=== PATIENT | female | born 1950 | race Caucasian/White ===

== ENCOUNTER 2023-05-19 13:01 | Outpatient (CLI) | payer MEDICARE, SELFPAY ==
--- NOTE | 2023-05-19 13:00 | CRLHL7_ITS ---
For Patients: As a result of the Century Cures Act, medical imaging exams and procedure reports are released immediately into your electronic medical record. You may view this report before your referring provider. If you have questions, please contact your health care provider. DXA BONE MINERAL DENSITY STUDY Reason for exam: Age-related osteoporosis. Screening. Current height (in): 66. Weight (lb): 147. Menopause age: 40. Ethnicity: White. 1. Have you had a previous hip or vertebral fracture? No. 2. Have you had any fractures during your adult life which did not result from significant trauma (e.g., auto accident)? No. 3. Did either of your parents have a hip fracture? No. 4. Do you smoke? Yes. 5. Have you ever taken Glucocorticoids? No. 6. Do you have rheumatoid arthritis? No. 7. Do you have secondary osteoporosis? No. 8. Do you drink 3 or more alcoholic drinks per day? No. 9. Are you being treated for osteoporosis? No. 10. Have you ever taken any of the following medications: Actonel, Evista, Fosamax, Miacalcin, Reclast, Boniva, Forteo, HRT (i.e., estrogen/hormone therapy), Protelos, Prolia, Vitamin D, Calcium, other ??? please specify. ANSWER: Yes, vitamin D and calcium. 11. Do you have any of the following medical conditions: Anorexia or bulimia, asthma or emphysema, end stage renal disease, hyperparathyroidism, any seizure disorders, cancer, inflammatory bowel diseases, hysterectomy, other ??? please specify. ANSWER: No. 12. What was your maximum height (inches)? 66. 13. Do you perform weight bearing exercise regularly? No. 14. Do you regularly consume dairy products? No. 15. Do you drink caffeinated beverages? Yes. If female: 16. At what age did your period start? 13. 17. Are you premenopausal? No. 18. How many full-term pregnancies have you had? 38. 19. Have you ever missed your period for more than 6 months in a row (not including or menopause)? No. TECHNIQUE: Bone mineral density study was performed using the [employer] Wi. FINDINGS: The results of the study expressed as bone mineral density (BMD) are as follows: Lumbar spine L1 to L4: BMD: 1.217 g/cm2. T-score: 1.5. Z-score: 3.7 Neck Left: BMD: 0.890 g/cm2. T-score: 0.4. Z-score: 2.2 Right: BMD: 0.918 g/cm2. T-score: 0.6. Z-score: 2.5 Total Left: BMD: 1.002 g/cm2. T-score: 0.5. Z-score: 2.0 Right: BMD: 1.044 g/cm2. T-score: 0.8. Z-score: 2.4 IMPRESSION: Normal bone density. Cale Torres M.D. Diagnostic Radiologist [email or web address] [place]/jackie jj/Dictated by: Cale Torres MD @ 05/20/2023 7:00:00 AM (Electronically Signed)
--- NOTE | 2023-05-19 13:40 | CRLHL7_ITS ---
For Patients: As a result of the Century Cures Act, medical imaging exams and procedure reports are released immediately into your electronic medical record. You may view this report before your referring provider. If you have questions, please contact your health care provider. BILATERAL SCREENING MAMMOGRAM WITH COMPUTER-AIDED DETECTION AND TOMOSYNTHESIS TECHNIQUE: CC and MLO views were obtained. These mammographic images have been obtained using full-field digital technique. These mammographic images were interpreted with the benefit of computer-aided detection. Breast Tomosynthesis was used in this interpretation. COMPARISON FILM: 12/25/18, 11/18/17, 03/29/16. FINDINGS: There are scattered areas of fibroglandular density IMPRESSION: There is no radiographic evidence for malignancy. ASSESSMENT: BI-RADS Category 2: Benign RECOMMENDATION: Routine screening mammogram in 1 year. A lay language report of this examination will be provided to the patient. Alverto Lopez M.D. Diagnostic/Nuclear Medicine Radiologist [email or web address] [place]/Dictated by: Alverto Lopez MD @ 05/25/2023 10:03:00 AM (Electronically Signed)
== END 2023-05-19 13:02 | disposition home or self-care (01) ==
LOC: RAD 13:02
PROVIDERS: PCP Family Medicine; Visit Provider Family Medicine
DX: Z12.31 Encounter for screening mammogram for malignant neoplasm of breast (principal); Z13.820 Encounter for screening for osteoporosis; M81.0 Age-related osteoporosis without current pathological fracture
CPT/HCPCS: 77063; 77067; 77080

== ENCOUNTER 2024-01-05 15:32 | Outpatient (CLI) | payer MEDICARE, SELFPAY | END 2024-01-05 15:33 | disposition home or self-care (01) | LOC: NFLDREF 01-06 07:36 | PROVIDERS: PCP Family Medicine; Referring Provider Family Medicine; Visit Provider Physician Assistant | DX: R31.9 Hematuria, unspecified (principal) | CPT/HCPCS: 87086 ==

== ENCOUNTER 2024-01-09 15:34 | Outpatient (CLI) | payer MEDICARE, SELFPAY | END 2024-01-09 15:35 | disposition home or self-care (01) | LOC: LKVREF 15:36 | PROVIDERS: PCP Family Medicine; Visit Provider Family Medicine | DX: R53.83 Other fatigue (principal); Z13.29 Encounter for screening for other suspected endocrine disorder | CPT/HCPCS: 84443 ==

== ENCOUNTER 2024-01-24 12:52 | Outpatient (CLI) | payer MEDICARE, SELFPAY ==
--- NOTE | 2024-01-24 13:00 | CT_ITS ---
Patient: FRANCIA MOTT Facility:?[facility] Patient ID:?[id number] Site Patient ID:?[id number]. Site :?[id number] Study:?CT-Abdomen/Pelvis STONE STUDY-01/24/2024 1:42:08 PM Ordering Physician:?DR. AVILES Final Report: INDICATION: Hematuria, history of stones TECHNIQUE: CT abdomen and pelvis without contrast, stone protocol. COMPARISON: None FINDINGS: Kidney/ureters: 7 x 4 mm nonobstructing stone in the left renal pelvis. Additional nonobstructing 2 mm intrarenal stone on the left and punctate nonobstructing intrarenal stone on the right. No ureteral stone or hydronephrosis. Phleboliths along the right ovarian vein. Liver/gallbladder/bile ducts: The liver is normal in size, shape and attenuation. Cholecystectomy. Spleen/pancreas/adrenal glands: The spleen, adrenal glands and pancreas are within normal limits. GI tract: Sigmoid diverticulosis. No diverticulitis. Normal appendix. Abdominal wall/omentum/peritoneum: No free air or significant free fluid. No mass or inflammation. Lymph nodes: No lymphadenopathy. Pelvis: Hysterectomy. Lower chest: Unremarkable. IMPRESSION: Bilateral nephrolithiasis including 7 x 4 mm left renal pelvis stone. Please note that all CT scans at this facility use dose modulation, iterative reconstruction, and/or weight-based dosing when appropriate to reduce radiation dose to as low as reasonably achievable. Dictated by Yakov Weston MD @ 01/25/2024 8:36:08 AM Signed by:?Yakov Weston MD @01/25/2024 8:36:08 AM (Electronic Signature)
== END 2024-01-24 12:53 | disposition home or self-care (01) ==
PROVIDERS: PCP Family Medicine; Visit Provider Family Medicine
DX: N20.0 Calculus of kidney (principal); R31.9 Hematuria, unspecified
CPT/HCPCS: 74176

== ENCOUNTER 2024-02-03 14:59 | Outpatient (CLI) | payer MEDICARE, SELFPAY ==
--- OUTSIDE RECORDS SUMMARY | 2024-02-06 07:10 | XMS_ITS | Clinical Summary ---
Author Name Unknown Organization [facility] Address [address] [place] [address] Care Team Providers Care Fixed Income Manager Name Role Phone [facility]- Primary Care Provider Allergies Active Allergy Reactions Criticality Noted Date Comments Codeine Itching 03/06/2017 Prednisone Shortness Of Breath High 03/06/2017 Pt. States that Thinks she was allergic to contrast dye, not the prednisone Sulfa Antibiotics Unknown 03/06/2017 Adhesive Tape Other (See Comments) 12/01/2018 Red and raw under tape, takes days to heal. Medications Medication Sig Dispensed Refills Start Date End Date Status HYDROcodone-acetami nophen (NORCO) 10-325 MG per tablet Take 1 tablet by mouth 5 times daily Active Fexofenadine HCl (LAINE PO) Take 1 tablet by mouth daily Active albuterol (PROAIR HFA/PROVENTIL HFA/VENTOLIN HFA) 108 (90 BASE) MCG/ACT Inhaler Inhale 2 puffs into the lungs every 6 hours Active gabapentin (NEURONTIN) 600 MG tablet Take 600 mg by mouth every evening Active Multiple Vitamins-Minerals (MULTIVITAMIN ADULT PO) Take 1 tablet by mouth daily Active calcium carbonate (CALCIUM CARBONATE) 600 MG tablet Take 1 tablet by mouth daily Active cyclobenzaprine (FLEXERIL) 10 MG tablet Take 10 mg by mouth 3 times daily as needed for muscle spasms Active cholecalciferol (VITAMIN D3) 5000 units TABS tablet Take 10,000 Units by mouth daily (Patient takes [id number],000 international unit(s)) Active atorvastatin (LIPITOR) 10 MG tablet Take 10 mg by mouth daily Active omega-3 acid ethyl esters (LOVAZA) 1 g capsule Take 1 g by mouth 2 times daily Active oxyCODONE-acetamino phen (PERCOCET) 5-325 MG tablet Take 1 tablet by mouth daily as needed for severe pain Active diazepam (VALIUM) 5 MG tablet Take 5 mg by mouth every 6 hours as needed for anxiety Active zolpidem (AMBIEN) 5 MG tablet Take 5-10 mg by mouth nightly as needed for sleep Active melatonin 5 MG CAPS Take 5 mg by mouth nightly as needed Active Active Problems Problem Noted Date Diagnosed Date Cervicalgia Overview: Created by Conversion Lumbar Radiculopathy At L5 Overview: Created by Conversion Social History Tobacco Use Types Packs/Day Years Used Date Smoking Tobacco: Former Cigarettes Q uit: 10/03/1996 Smokeless Tobacco: Never Alcohol Use Standard Drinks/Week Comments Yes 0 (1 standard drink = 0.6 oz pur e alcohol) occassional Sex and Gender Information Value Date Recorded Sex Assigned at Not on file Gender Identity Not on file Sexual Orientation Not on file Last Filed Vital Signs Vital Sign Reading Time Taken Comments Blood Pressure 141/85 12/04/2018 10:17 AM INSURANCE SPECIALIST Pulse 80 12/04/2018 9:30 AM INSURANCE SPECIALIST Temperature 36.3 ??C (97.3 ??F) 12/04/2018 9:30 AM CS T Respiratory Rate 12 12/04/2018 10:17 AM INSURANCE SPECIALIST Oxygen Saturation 92% 12/04/2018 10:17 AM INSURANCE SPECIALIST Inhaled Oxygen Concentration - - Weight 84.5 kg (186 lb 4.8 oz) 12/04/2018 6:31 A M INSURANCE SPECIALIST Height 166.4 cm (5' 5.5) 12/04/2018 6:31 AM INSURANCE SPECIALIST Body Mass Index 30.53 12/04/2018 6:31 AM INSURANCE SPECIALIST Plan of Treatment Not on file Care Teams Fixed Income Manager Relationship Specialty Start Date End Date [facility]- [address] [place] [address] PCP - General 11/16/18
--- OUTSIDE RECORDS SUMMARY | 2024-02-06 07:10 | XMS_ITS | Referral Summary ---
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- [address] [place] [address] PCP - General 11/16/18
--- OUTSIDE RECORDS SUMMARY | 2024-02-06 07:11 | XMS_ITS | Continuity of Care Document ---
Author Name Unknown Organization [facility] Address [address] [address] [place] [address] Phone Care Team Providers Care Rodeo Performer Name Role Phone Link Tavo ORTEGA Unavailable Unavailable Allergies, Adverse Reactions, Alerts Substance Reaction Status Criticality adhesive Rash Active No Information Sulfa (Sulfonamide Antibiotics) Active No Information codeine Active No Information Medications Medication Instructions Dosage Effective Dates (start - stop) Status Comments [place] 10 mg-325 mg tablet take 1 tablet by oral route every 6 hours as needed for pain 1 tablet - Active Fish Oil 1,000 mg capsule take by Oral route 2 times every day - Active multivitamin tablet take by Oral route every day Not Available - Active Vitamin D3 5,000 unit tablet take 1 by Oral route every day 1 - Active Lipitor 10 mg tablet take 1 tablet by oral route every day 10 MG - Active aspirin 81 mg tablet,delayed release take 1 tablet by oral route every day 81 MG - Active Annemarie Allergy 180 mg tablet take 1 tablet by oral route every day 180 MG - Active Percocet 5 mg-325 mg tablet take 1 tablet by oral route every 6 hours as needed 1.00 tablet - Active Calcium 600 600 mg (1,500 mg) tablet take by Oral route every day Not Available - Active Miralax 17 gram oral powder packet Use as directed - Active Procedures Procedure Date Offic/outpt E&m New Mod Sever 7 Offic/outpt E&m Estab Low-mod 4 Routine Serum Collection Thyroid Stim Hormone Colonoscopy Flex; Dx (sep Pro) 14 Ugi Endo; W/bx 1/mx Level Iv-surg Path Gross/micro 14 Advance Directives Directive Yes / No Effective Date File Name No Information Encounters Encounter Description Practice Location Reason(s) For Visit Diagnoses Date Provider Providers Copied on Encounter [facility], [address] [address], [place], [id number], [place] tel:[phone] [facility] No Information 7 Tl Vo. [address] [facility] [place], [place], [place], [id number] , [place]. tel: [phone] Offic/outpt E&m New Mod Sever [facility], [address] [address], [place], [id number], [place] tel:[phone] [facility] GI Symptoms or Concerns (chief complaint) Constipation, chronicAbdominal pain in female 7 Jose David Patel. [address] [facility] [place], [place], [place], [id number] , [place]. tel:[phone] Eduardo Sanchez MD. tel:[phone] ring Provider: Referral Self, USE FOR SELF REFERRALS. Offic/outpt E&m Estab Low-mod [facility], [address] [address], [place], [place], [id number], [place] tel:[phone] [facility] GI Symptoms or Concerns (chief complaint) DysphagiaConstip ation UnspecifiedDieta ry Surveil/counselE lev Bl Pres W/o Hypertn 4 Jose David Patel. [address] [facility] [place], [place], [id number] , [place]. [phone] Eduardo Sanchez MD. [phone] [facility], [address] [address], [place], [place], [id number], [place] tel:[phone] [facility] Colon Cancer Screening 4 Jose David Patel. [address] [facility] [place], [place], [place], [id number] , [place]. [phone] Eduardo Sanchez MD. [phone] [facility], [address] [address], [place], [place], [id number], [place] tel:[phone] [facility] DysphagiaColon cancer screeningReflux EsophagitisGastr itisColon Cancer Screening 4 Jose David Patel. [address] [facility] [place], [place], [place], [id number] , [place]. [phone] Referring Provider: Eduardo Sanchez MD C, [address] [facility] [place], [address]. tel:[phone] [facility], [address] [address], [place], [place], [address], [place] tel:[phone] [facility] No Information Jorge Rod. [address] [facility] [place], [place], [place], [id number] , [place]. [phone] Referring Provider: Cale Patrick MD [place], [address] [place], [address]. tel:[phone] Family History Family Member Type Diagnosis Age At Onset Brother Problem (finding) Alive and well Father Problem (finding) malignant neoplasm of u rinary bladder Father Problem (finding) prostate cancer Son Problem (finding) Alive and well Mother Problem (finding) Thyroid disorder Sister Problem (finding) malignant neop lasm of breast in first degree relative Daughter Problem (finding) Alive and well Payers Payer name Insurance type Covered libertarian ID Authoriza tion(s) [employer] [id number] Social History Type Description Quantity Date Captured Comments Sex Female Smoking Status No Information Chief Complaint And Reason For Visit No Information Reason For Referral Reason For Referral No Information Plan Of Treatment Date Type Action Status Goal Lifestyle education regardin g diet completed Referral Ordered: CT Colography Appointment date/timeframe: -today ordered History Of Present Illness Encounter Date Complaint History Of Prese nt Illness GI Symptoms or Concerns Ana cristobal is a very pleasant 66-year-old female, who I am seeing for abdominal discomfort and chronic constipation. The patient was seen in the emergency room on March 06, [address] scan at that time, which showed perhaps some mild colonic thickening in the descending and sigmoid colon, although this was felt to be due to incomplete distention. Two liver lesions were noted, but were then concluded to be a benign cyst and a benign hemangioma, and no further followup was recommended. She states that if she overeats even a little, her belly will swell to the point where it is very painful. She will have a bowel movement approximately every other day. She has noted no specific foods that will cause worsening of her symptoms. I saw her in clinic approximately three years ago for similar symptoms. At that time, a colonoscopy was attempted, although only the descending colon was reached. No significant abnormalities were noted. A followup CT colography showed a very long to GI Symptoms or Concerns Ana cristobal is a very pleasant 63-year-old female who was referred for problems with dysphagia as well as constipation and abdominal pain. With regard to her dysphagia, she describes as a vague sense of fullness in her upper throat. It occurs very intermittently. She recently underwent endoscopy on 03/12/2014. During this procedure, biopsies were obtained and were completely normal. No other cause for the patient's dysphagia was noted at the time of the upper endoscopy. She denies odynophagia, no chest discomfort associated with the dysphagia. She states that this is very uncommon and is more associated with phlegm. She also is following up for problems with constipation. The colonoscopy was incomplete due to significant discomfort. A CT colonography was performed on March 12, which showed a very tortuous colon, but was otherwise unremarkable. She states that her constipation, which has been a lifelong problem, improved up until very recently. Prior to this, she may have a natalee Functional Status Date Functional Assessmen t No Information Instructions Date Instruction Additional Infor waleska Constipation Related to Const ipation, chronic Constipation Bowel Cleanse (Adul t) Related to Constipation, chronic High Fiber Diet Related to Const ipation Unspecified Lifestyle education regarding di et Related to Dietary surveillance and counseling Colon Cancer Prevention Related to Colon cancer screening CT Colography Related to Colon Cancer Screening Assessments Type Assessment Date No Information Patient Care Teams Name Effective Dates (start - stop) Status Members No Information
--- OUTSIDE RECORDS SUMMARY | 2024-02-06 07:11 | XMS_ITS | Continuity of Care Document ---
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 Name Role Phone Cale Keith Unavailable Unavailable Allergies, Adverse Reactions, Alerts Substance Reaction Status Criticality OXYCODONE HCL pruritis Active No Information Sulfa (Sulfonamide Antibiotics) Unknown Active No Information Medications Medication Instructions Dosage Effective Dates (start - stop) Status Comments hydrocodone 10 mg-acetaminophen 325 mg tablet take 1 tablet by oral route every 4 hours as needed for pain, MAX 5 tablets per day for Chronic pain - Active to fill 01/22, to start 01/23 gabapentin 300 mg capsule take 2 capsules by oral route two times daily for pain - Active cyclobenzaprine 10 mg tablet take 1 tablet by oral route every day for spasms - Active Narcan 4 mg/actuation nasal spray spray 0.1 milliliter by intranasal route in 1 nostril may repeat dose every 2-3 minutes as needed alternating nostrils with each dose 4 MG - Active Valium 5 mg tablet take 0.5 tablet by ORAL route every day prn 2.5 MG - Active Valium 5 mg tablet take 1 tablet by ORAL route 2 times every day prn 5 MG - Active ProAir RespiClick 90 mcg/actuation breath activated inhale 2 puff by inhalation route every 4 - 6 hours as needed as needed 180 MCG - Active lorazepam 0.5 mg tablet take 1 tablet by oral route 3 times every day as needed as needed 0.5 MG - Active Wellbutrin SR 150 mg tablet, 12 hr sustained-release take 1 tablet by oral route 2 times every day 150 MG - Active Aleve 220 mg tablet take 1 tablet by oral route every day as needed 220 MG - Active ibuprofen 200 mg tablet take 1 tablet by oral route 3 times every day as needed with food 200 MG - Active Lipitor 20 mg tablet take 1 tablet by oral route every day 20 MG - Active aspirin 81 mg tablet,delayed release take 1 tablet by oral route every day 81 MG - Active Lovaza 1 gram capsule take 2 capsule by oral route in AM and 2 by oral route in PM - Active Vitamins and Minerals tablet Take one tablet in AM - Active Multivitamin Annemarie Allergy 180 mg tablet take 1 tablet by oral route every day 180 MG - Active Vitamin D3 1,000 unit capsule Take 2 tablets in AM - Active hydrocodone 10 mg-acetaminophen 325 mg tablet take 1 tablet by oral route every 4 hours as needed for pain, MAX 5 tablets per day for Chronic pain - No Longer Active to fill 12/22, to start 12/24 Procedures Procedure Date OFFICE VISIT, EST TELEMEDICINE OFFICE VISIT, EST TELEMEDICINE OFFICE/OUTPATIENT VISIT, EST OFFICE VISIT, EST TELEMEDICINE OFFICE VISIT, EST TELEMEDICINE Drug Urine Toxology With Chromatography Drug test def 1-7 classes OFFICE/OUTPATIENT VISIT, EST OFFICE VISIT, EST TELEMEDICINE OFFICE VISIT, EST TELEMEDICINE OFFICE VISIT, EST TELEMEDICINE OFFICE/OUTPATIENT VISIT, EST OFFICE VISIT, EST TELEMEDICINE OFFICE VISIT, EST TELEMEDICINE Foll-up eval q3mo opiod tx OFFICE/OUTPATIENT VISIT, EST Foll-up eval q3mo opiod tx OFFICE VISIT, EST TELEMEDICINE Foll-up eval q3mo opiod tx OFFICE VISIT, EST TELEMEDICINE Foll-up eval q3mo opiod tx OFFICE/OUTPATIENT VISIT, EST Foll-up eval q3mo opiod tx OFFICE VISIT, EST TELEMEDICINE Foll-up eval q3mo opiod tx OFFICE VISIT, EST TELEMEDICINE Foll-up eval q3mo opiod tx OFFICE VISIT, EST TELEMEDICINE Foll-up eval q3mo opiod tx INJ TRIGGER POINT, 1/2 MUSCL OFFICE/OUTPATIENT VISIT, EST Drug Urine Toxology With Chromatography Drug test def 8-14 classes Foll-up eval q3mo opiod tx OFFICE VISIT, EST TELEMEDICINE Foll-up eval q3mo opiod tx OFFICE VISIT, EST TELEMEDICINE Foll-up eval q3mo opiod tx OFFICE VISIT, EST TELEMEDICINE Foll-up eval q3mo opiod tx OFFICE VISIT, EST TELEMEDICINE OFFICE/OUTPATIENT VISIT, EST Drug Urine Toxology With Chromatography Drug test def 8-14 classes Foll-up eval q3mo opiod tx OFFICE VISIT, EST TELEMEDICINE Foll-up eval q3mo opiod tx OFFICE VISIT, EST TELEMEDICINE Foll-up eval q3mo opiod tx OFFICE VISIT, EST TELEMEDICINE Foll-up eval q3mo opiod tx OFFICE VISIT, EST TELEMEDICINE Foll-up eval q3mo opiod tx OFFICE VISIT, EST TELEMEDICINE Foll-up eval q3mo opiod tx OFFICE VISIT, EST TELEMEDICINE ROUTINE BLOOD DRAW Drug test def 8-14 classes Drug Urine Toxology With Chromatography Foll-up eval q3mo opiod tx OFFICE/OUTPATIENT VISIT, EST Foll-up eval q3mo opiod tx OFFICE VISIT, EST TELEMEDICINE Foll-up eval q3mo opiod tx OFFICE VISIT, EST TELEMEDICINE Foll-up eval q3mo opiod tx OFFICE VISIT, EST TELEMEDICINE Foll-up eval q3mo opiod tx OFFICE/OUTPATIENT VISIT, EST Telehealth Foll-up eval q3mo opiod tx OFFICE VISIT, EST TELEMEDICINE Foll-up eval q3mo opiod tx OFFICE VISIT, EST TELEMEDICINE Foll-up eval q3mo opiod tx OFFICE VISIT, EST TELEMEDICINE Foll-up eval q3mo opiod tx OFFICE VISIT, EST TELEMEDICINE ROUTINE BLOOD DRAW Drug Urine Toxology With Chromatography Drug test def 8-14 classes OFFICE VISIT, EST TELEMEDICINE 21 Foll-up eval q3mo opiod tx Foll-up eval q3mo opiod tx OFFICE VISIT, EST TELEMEDICINE Foll-up eval q3mo opiod tx OFFICE VISIT, EST TELEMEDICINE 20 Foll-up eval q3mo opiod tx OFFICE VISIT, EST TELEMEDICINE Foll-up eval q3mo opiod tx OFFICE VISIT, EST TELEMEDICINE Foll-up eval q3mo opiod tx OFFICE/OUTPATIENT VISIT, EST Drug test def 15-21 classes Foll-up eval q3mo opiod tx OFFICE VISIT, EST TELEMEDICINE Foll-up eval q3mo opiod tx OFFICE VISIT, EST TELEMEDICINE 20 Foll-up eval q3mo opiod tx OFFICE VISIT, EST TELEMEDICINE Foll-up eval q3mo opiod tx OFFICE VISIT, EST TELEMEDICINE Foll-up eval q3mo opiod tx OFFICE VISIT, EST TELEMEDICINE Foll-up eval q3mo opiod tx OFFICE/OUTPATIENT VISIT, EST Foll-up eval q3mo opiod tx OFFICE VISIT, EST TELEMEDICINE Foll-up eval q3mo opiod tx OFFICE/OUTPATIENT VISIT, EST Foll-up eval q3mo opiod tx OFFICE/OUTPATIENT VISIT, EST Drug test def 22+ classes Drug Urine Toxology With Chromatography OFFICE/OUTPATIENT VISIT, EST OFFICE/OUTPATIENT VISIT, EST OFFICE/OUTPATIENT VISIT, EST OFFICE/OUTPATIENT VISIT, EST Drug test def 22+ classes Drug Urine Toxology With Chromatography OFFICE/OUTPATIENT VISIT, EST OFFICE/OUTPATIENT VISIT, EST OFFICE/OUTPATIENT VISIT, EST OFFICE/OUTPATIENT VISIT, EST Drug test def 22+ classes Drug Urine Toxology With Chromatography OFFICE/OUTPATIENT VISIT, EST OFFICE/OUTPATIENT VISIT, EST OFFICE/OUTPATIENT VISIT, EST OFFICE/OUTPATIENT VISIT, EST OFFICE/OUTPATIENT VISIT, EST OFFICE/OUTPATIENT VISIT, EST OFFICE/OUTPATIENT VISIT, EST OFFICE/OUTPATIENT VISIT, EST OFFICE/OUTPATIENT VISIT, EST OFFICE/OUTPATIENT VISIT, EST OFFICE/OUTPATIENT VISIT, EST OFFICE/OUTPATIENT VISIT, EST OFFICE/OUTPATIENT VISIT, EST OFFICE/OUTPATIENT VISIT, EST OFFICE/OUTPATIENT VISIT, EST OFFICE/OUTPATIENT VISIT, EST OFFICE/OUTPATIENT VISIT, EST OFFICE/OUTPATIENT VISIT, EST OFFICE/OUTPATIENT VISIT, EST OFFICE/OUTPATIENT VISIT, EST OFFICE/OUTPATIENT VISIT, EST OFFICE CONSULTATION Advance Directives Directive Yes / No Effective Date File Name No Information Encounters Encounter Description Practice Location Reason(s) For Visit Diagnoses Date Provider Providers Copied on Encounter OFFICE VISIT, [facility] TELEMEDICINE [facility], [address] [place], [place], [id number] , [place] tel: [phone] [facility] Widespread pain (chief complaint) AnxietyChronic pain syndromePain in left ankleOther intervertebral disc degeneration, lumbar regionMyalgia, other siteLong term (current) use of opiate analgesic 4 Rickey Madsen. [address], [place], [id number] , [place]. [phone] Referring Provider: Ravi Gonzalez, [address] [facility] [place], [address] . tel:[phone] OFFICE VISIT, [facility], [address] [place] [address], [id number] , [place] [phone] [facility] Widespread pain (chief complaint) AnxietyChronic pain syndromePain in left ankleOther intervertebral disc degeneration, lumbar regionMyalgia, other siteLong term (current) use of opiate analgesic 4 Rickey Madsen. [address], [place], [id number] , [place]. tel:[phone] OFFICE/OUTPAT IENT VISIT, [facility], [address] [place] [address], [id number] , [place] tel:[phone] [facility] Widespread pain (chief complaint) AnxietyChronic pain syndromeOther intervertebral disc degeneration, lumbar regionPain in left ankleMyalgia, other siteLong term (current) use of opiate analgesic 4 Rickey Madsen. [address] [facility], [place], [id number] , [place]. tel:[phone] Referring Provider: Ravi Gonzalez, [address] [place] [address] [place], [address] . tel:[phone] OFFICE VISIT, [facility] TELEMEDICINE [facility], [address] [place] [address] [place], [id number] , [place] tel: [phone] [facility] Widespread pain (chief complaint) AnxietyChronic pain syndromePain in left ankleOther intervertebral disc degeneration, lumbar regionMyalgia, other siteLong term (current) use of opiate analgesic 4 Rickey Madsen. [address] [place] [address] [place], [id number] , [place]. tel: [phone] Referring Provider: Ravi Gonzalez, [address] [place] [address] [place], [address] . tel:[phone] OFFICE VISIT, [facility], [address] [place] [address] [place], [place], [id number] , [place] tel: [phone] [facility] Widespread pain (chief complaint) AnxietyChronic pain syndromePain in left ankleOther intervertebral disc degeneration, lumbar regionMyalgia, other siteLong term (current) use of opiate analgesic 3 Rickey Madsen. [address] [place] [address] [place], [address] , [place]. tel: [phone] [facility], [address] [place] [address] Ghanshyam [place], [id number] , [place] tel: [phone] [facility] [place] No Information 3 Rickey Madsen. [address] [place] [address] Qu[place], [place], [id number] , [place]. tel: [phone] OFFICE/OUTPAT IENT VISIT, [facility], [address] [place] [address] [place], [id number] , [place] tel: [phone] [facility] Widespread pain (chief complaint) AnxietyChronic pain syndromePain in left ankleOther intervertebral disc degeneration, lumbar regionMyalgia, other siteLong term (current) use of opiate analgesicEncounte r for therapeutic drug level monitoring 3 Rickey Madsen. [address] [place] [place], [place], [id number] , [place]. [phone] Referring Provider: Ravi Gonzalez, [facility] [place], [address] . tel:[phone] OFFICE VISIT, EST TELEMEDICINE [facility], [address] [place] [address] [place], [address] , [place] [phone] [facility] Widespread pain (chief complaint) AnxietyChronic pain syndromePain in left ankleOther intervertebral disc degeneration, lumbar regionMyalgia, other siteLong term (current) use of opiate analgesic 3 Rickey Madsen. [address] [place], [id number] , [place]. [phone] OFFICE VISIT, EST TELEMEDICINE [facility], [address] [place] [address] Quang [place]Pat[place], [place], [address] , [place] [phone] [facility] Widespread pain (chief complaint) Chronic pain syndromeOther intervertebral disc degeneration, lumbar regionPain in left ankleMyalgia, other siteAnxietyLong term (current) use of opiate analgesic 3 Rickey Madsen. [address] [place], [place], [address] , [place]. [phone] Referring Provider: Raiv Gonzalez, [facility] [place], [address] . tel:[phone] OFFICE VISIT, EST TELEMEDICINE [facility], [address] [place], [place], [id number] , [place] tel:[phone] [facility] Widespread pain (chief complaint) AnxietyPain in left ankleOther intervertebral disc degeneration, lumbar regionMyalgia, other siteLong term (current) use of opiate analgesicChronic pain syndrome 3 Rickey Madsen. [address] [place], [id number] , [place]. tel:[phone] Referring Provider: Ravi Gonzalez, [address] [place], [place] [address]ms [place], [address] . tel:[phone] OFFICE/OUTPAT IENT VISIT, [facility], [address] [facility] Ghanshyam [place], [place], [id number] , [place] tel:[phone] [facility] Widespread pain (chief complaint) Other intervertebral disc degeneration, lumbar regionPain in left ankleAnxietyMyalg ia, other siteLong term (current) use of opiate analgesic Apr- 0 3 Trutnau Lisseth. [address] [facility] [place]ano [place], [id number] , [place]. tel:[phone] Referring Provider: Eduardo Sanchez , [facility] [address] [address] [place], [address]. tel:[phone] OFFICE VISIT, [facility], [address] [facility] Ghanshyam [place], [place], [id number] , [place] tel:[phone] [facility] Widespread pain (chief complaint) AnxietyPain in left ankleOther intervertebral disc degeneration, lumbar regionMyalgia, other siteLong term (current) use of opiate analgesic 3 Trutnau Lisseth. [address] [facility] [place], [id number] , [place]. [phone] Referring Provider: Ravi Gonzalez, [address] [place] [address] [place], [address] . tel:[phone] OFFICE VISIT, [facility], [address] [facility] Ghanshyam [place], [address] , [place] tel:[phone] [facility] Widespread pain (chief complaint) AnxietyPain in left ankleOther intervertebral disc degeneration, lumbar regionMyalgia, other siteLong term (current) use of opiate analgesic 3 Trutnau Lisseth. [address] [facility] [place], [id number] , [place]. [phone] Referring Provider: Ravi Gonzalez, [address] [place] [address] [place], [address] . tel:[phone] OFFICE/OUTPAT IENT VISIT, [facility], [address] [facility] Quang [place], [place], [address] , [place] tel:[phone] [facility] [place] Widespread pain (chief complaint) AnxietyPain in left ankleOther intervertebral disc degeneration, lumbar regionMyalgia, other siteLong term (current) use of opiate analgesicEncounte r for therapeutic drug level monitoring 3 Christian Montanez. [address] [facility] [place], [id number] , [place]. tel:[phone] Referring Provider: Eduardo Sanchez , [facility] [address] [address], [place], [address]. tel:[phone] OFFICE VISIT, [facility] TELEMEDICINE [facility], [address] [place] [address] [place], [place], [address] , [place] tel:[phone] [facility] [place] Widespread pain (chief complaint) AnxietyPain in left ankleOther intervertebral disc degeneration, lumbar regionMyalgia, other siteLong term (current) use of opiate analgesic 3 Christian Montanez. [address] [facility] U[place]ano [place], [id number] , [place]. tel:[phone] OFFICE VISIT, [facility] TELEMEDICINE [facility], [address] [place], [address] , [place] tel:[phone] [facility] Widespread pain (chief complaint) AnxietyPain in left ankleOther intervertebral disc degeneration, lumbar regionOther bursitis of hip, left hipMyalgia, other siteLong term (current) use of opiate analgesic 3 Christian Montanez. [address] [facility] [place], [address] , [place]. [phone] Referring Provider: Ravi Gonzalez, [address] [facility] [place], [address] . tel:[phone] OFFICE/OUTPAT IENT VISIT, [facility], [address] [place] [address] Quang [place], [place], [address] , [place] tel:[phone] [facility] [place] Widespread pain (chief complaint) AnxietyPain in left ankleOther intervertebral disc degeneration, lumbar regionOther bursitis of hip, left hipMyalgia, other siteLong term (current) use of opiate analgesic 3 Trutnau Lisseth. [address] [place], [id number] , [place]. tel: [phone] Referring Provider: Eduardo Sanchez [facility] [address] [address] [place], [address]. tel:[phone] OFFICE VISIT, EST TELEMEDICINE [facility], [address] [place], [id number] , [place] tel: [phone] [facility] [place] Widespread pain (chief complaint) AnxietyPain in left ankleOther intervertebral disc degeneration, lumbar regionOther bursitis of hip, left hipMyalgia, other siteLong term (current) use of opiate analgesic Sep- 2 Trutnau Lisseth. [address] [place], [address] , [place]. tel: [phone] OFFICE VISIT, EST TELEMEDICINE [facility], [address] [place], [id number] , [place] tel: [phone] [facility] [place] Widespread pain (chief complaint) AnxietyPain in left ankleOther intervertebral disc degeneration, lumbar regionOther bursitis of hip, left hipMyalgia, other siteLong term (current) use of opiate analgesic Sep-0 2 Trutnau Lisseth. [address] [place], [id number] , [place]. tel: [phone] OFFICE VISIT, EST TELEMEDICINE [facility], [address] [place], [id number] , [place] tel: [phone] [facility] [place] Widespread pain (chief complaint) AnxietyPain in left ankleOther intervertebral disc degeneration, lumbar regionOther bursitis of hip, left hipMyalgia, other siteLong term (current) use of opiate analgesic Nov-0 2 Trutnau Lisseth. [address] [place], [address] , [place]. tel:[phone] OFFICE/OUTPAT IENT VISIT, EST [facility], [address] [place], [address] , [place] tel: [phone] [facility] [place] Widespread pain (chief complaint) AnxietyPain in left ankleOther intervertebral disc degeneration, lumbar regionOther bursitis of hip, left hipLong term (current) use of opiate analgesicEncounte r for therapeutic drug level monitoringMyalgia , other site 2 Trutnau Lisseth. [address] [place] [place], [address] , [place]. [phone] Referring Provider: Eduardo Sanchez [facility] [address] [facility] [place], [address]. tel:[phone] [facility], [address] [facility] [place], [id number] , [place] tel: [phone] [facility] [place] No Information 2 Trutnau Lisseth. [address] [place], [address] , [place]. tel: [phone] OFFICE VISIT, EST TELEMEDICINE [facility], [address] [place], [id number] , [place] tel: [phone] [facility] [place] Widespread pain (chief complaint) Pain in left ankleOther intervertebral disc degeneration, lumbar regionOther bursitis of hip, left hipLong term (current) use of opiate analgesicAnxiety 2 Trutnau Lisseth. [address] [facility] [place], [address] , [place]. tel: [phone] OFFICE VISIT, EST TELEMEDICINE [facility], [address] [place], [id number] , [place] tel: [phone] [facility] [place] Widespread pain (chief complaint) Pain in right shoulderPain in left ankleOther intervertebral disc degeneration, lumbar regionOther bursitis of hip, left hipLong term (current) use of opiate analgesic 2 Trutnau Lisseth. [address] [facility] [place], [place], [address] , [place]. tel: [phone] OFFICE VISIT, [facility], [address] [place] [address] Ghanshyam [place], [place], [address] , [place] tel: [phone] [facility] [place] Widespread pain (chief complaint) Pain in right shoulderPain in left ankleOther intervertebral disc degeneration, lumbar regionOther bursitis of hip, left hipLong term (current) use of opiate analgesic Yaniv-0 2 Trutnau Lisseth. [address] [facility] [place], [address] , [place]. tel: [phone] Referring Provider: Ravi Gonzalez, [address] [place] [address] [place], [address] . tel:[phone] OFFICE VISIT, [facility], [address] [place] [address] Ghanshyam [place], [place], [address] , [place] tel: [phone] [facility] Widespread pain (chief complaint) Pain in right shoulderPain in left ankleOther intervertebral disc degeneration, lumbar regionOther bursitis of hip, left hipLong term (current) use of opiate analgesic Gregg-0 2 Trutnaavery Montanez. [address] [facility] [place], [id number] , [place]. tel: [phone] Referring Provider: Ravi Gonzalez, [address] [place] [address] [place], [address] . tel:[phone] OFFICE/OUTPAT IENT VISIT, [facility], [address] [place] [address] Ghanshyam [place], [place], [address] , [place] tel: [phone] [facility] [place] Widespread pain (chief complaint) Pain in left ankleOther intervertebral disc degeneration, lumbar regionPain in right shoulderOther bursitis of hip, left hipLong term (current) use of opiate analgesic May-0 2 Trutnau Lisseth. [address] [facility] [place], [address] , [place]. tel: [phone] Referring Provider: Slade Robb [facility] [address] [place], [address]. tel:[phone] [facility], [address] [facility] Quang [place], [place], [address] , [place] tel: [phone] [facility] [place] No Information Jan- 2 Almita Mosquera . [address] [facility] Quang [place], [place], [address] , [place]. tel: [phone] Referring Provider: Eduardo Sanchez , [facility] [address] [place], [address]. tel:[phone] OFFICE VISIT, EST TELEMEDICINE [facility], [address] [facility] Quang [place], [place], [address] , [place] tel: [phone] [facility] Widespread pain (chief complaint) Pain in right shoulderPain in left ankleOther intervertebral disc degeneration, lumbar regionOther bursitis of hip, left hipLong term (current) use of opiate analgesicAnxietyB ilateral primary osteoarthritis of knee Apr- 2 Almita Mosquera . [address] [facility] Quang [place], [place], [address] , [place]. tel: [phone] OFFICE VISIT, EST TELEMEDICINE [facility], [address] [facility] Quang [place], [place], [address] , [place] tel: [phone] [facility] Widespread pain (chief complaint) Pain in right shoulderLong term (current) use of opiate analgesicAnxietyO ther intervertebral disc degeneration, lumbar regionBilateral primary osteoarthritis of kneePain in left ankleOther bursitis of hip, left hip Mar-0 2 Christian Lisseth. [address] [facility] Darren Morris[place]ardienne [place], [id number] , [place]. tel: [phone] Referring Provider: Ravi Gonzalez, [address] [facility] [place], [address] . tel:[phone] OFFICE VISIT, EST TELEMEDICINE [facility], [address] [facility] Quang [place]Pat[place], [place], [address] , [place] tel: [id number] [facility] [place] Widespread pain (chief complaint) Pain in right shoulderLong term (current) use of opiate analgesicAnxietyO ther intervertebral disc degeneration, lumbar regionBilateral primary osteoarthritis of kneePain in left ankleOther bursitis of hip, left hip 2 Tr[place] Lisseth. [address] [place], [id number] , [place]. tel: [phone] Referring Provider: Ravi Gonzalez, [address] [place], [address] . tel:[phone] OFFICE VISIT, EST TELEMEDICINE [facility], [address] [place] [address] [place], [id number] , [place] tel: [phone] [facility] [place] Widespread pain (chief complaint) Pain in right shoulderLong term (current) use of opiate analgesicAnxietyO ther intervertebral disc degeneration, lumbar regionBilateral primary osteoarthritis of kneePain in left ankleOther bursitis of hip, left hip 1 Tr[place] Lisseth. [address] [place], [id number] , [place]. tel: [phone] OFFICE VISIT, EST TELEMEDICINE [facility], [address] [place], [id number] , [place] tel: [phone] [facility] [place] Widespread pain (chief complaint) Pain in right shoulderLong term (current) use of opiate analgesicAnxietyO ther intervertebral disc degeneration, lumbar regionBilateral primary osteoarthritis of kneePain in left ankleOther bursitis of hip, left hip 1 [place] Lisseth. [address] [place], [id number] , [place]. tel: [phone] Referring Provider: Ravi Gonzalez, [address] [place], [address] . tel:[phone] OFFICE VISIT, EST TELEMEDICINE [facility], [address] [place], [id number] , [place] tel:[phone] [facility] [place] Widespread pain (chief complaint) Pain in right shoulderLong term (current) use of opiate analgesicAnxietyO ther intervertebral disc degeneration, lumbar regionBilateral primary osteoarthritis of kneePain in left ankleOther bursitis of hip, left hip 1 Trdelisa Lisseth. [address] [place], [id number] , [place]. [phone] Referring Provider: Ravi Gonzalez, [facility] [place], [address] . 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 [address] [place], [id number] , [place]. [phone] Referring Provider: Ravi Gonzalez, [address] [place] [address] [place], [address] . tel:[phone] OFFICE/OUTPAT IENT VISIT, EST [facility], [address] [place] [address] [place], [id number] , [place] [phone] [facility] Widespread pain (chief complaint) Other intervertebral disc degeneration, lumbar regionBilateral primary osteoarthritis of kneePain in left ankleOther bursitis of hip, left hipPain in right shoulderLong term (current) use of opiate analgesicAnxietyE ncounter for therapeutic drug level monitoring 1 Christian Montanez. [address] [facility] [address] [place], [id number] , [place]. [phone] Referring Provider: Eduardo Sanchez , [facility] [address] [address] [place], [address]. tel:[phone] OFFICE VISIT, EST TELEMEDICINE [facility], [address] [place], [id number] , [place] [phone] [facility] Widespread pain (chief complaint) Other intervertebral disc degeneration, lumbar regionBilateral primary osteoarthritis of kneePain in left ankleOther bursitis of hip, left hipPain in right shoulderLong term (current) use of opiate analgesicAnxiety Jun- 1 [place] Lisseth. [address] [place], [id number] , [place]. tel:[phone] Referring Provider: Ravi Gonzalez, [address] [place] Clar[address] [place], [address] . tel:[phone] OFFICE VISIT, EST TELEMEDICINE [facility], [address] [place], [id number] , [place] tel:[phone] [facility] [place] Widespread pain (chief complaint) Other intervertebral disc degeneration, lumbar regionBilateral primary osteoarthritis of kneePain in left ankleOther bursitis of hip, left hipPain in right shoulderLong term (current) use of opiate analgesicAnxiety 1 [place] Lisseth. [address] [place], [id number] , [place]. tel:[phone] Referring Provider: Ravi Gonzalez, [facility] [address] [place], [address] . tel:[phone] OFFICE VISIT, EST TELEMEDICINE [facility], [address] [place] [address] [place], [id number] , [place] tel:[phone] [facility] [place] Widespread pain (chief complaint) Bilateral primary osteoarthritis of kneeOther intervertebral disc degeneration, lumbar regionPain in left ankleOther bursitis of hip, left hipPain in right shoulderLong term (current) use of opiate analgesicAnxiety 1 [place] Lisseth. [address] [place], [id number] , [place]. [phone] Referring Provider: Ravi Gonzalez, [address] [place] Darrenheriberto [place], [address] . tel:[phone] OFFICE/OUTPAT IENT VISIT, EST [facility], [address] [place], [id number] , [place] [phone] [facility] [place] Widespread pain (chief complaint) Bilateral primary osteoarthritis of kneeOther intervertebral disc degeneration, lumbar regionPain in left ankleOther bursitis of hip, left hipPain in right shoulderLong term (current) use of opiate analgesic Gregg-0 - 1 Trut[place] Lisseth. [address] [place], [id number] , [place]. tel:[phone] Referring Provider: Ravi Gonzalez, [address] Clar[place] noble[place], [address] . tel:[phone] OFFICE VISIT, EST TELEMEDICINE [facility], [address] Children[facility] [place], [id number] , [place] tel: [phone] [facility] [place] Widespread pain (chief complaint) Bilateral primary osteoarthritis of kneeOther intervertebral disc degeneration, lumbar regionPain in left ankleOther bursitis of hip, left hipLong term (current) use of opiate analgesicPain in right shoulder May-0 1 [place] Lisseth. [address] [place], [address] , [place]. tel: [phone] Referring Provider: Ravi Gonzalez, [facility] [place], [address] . tel:[phone] OFFICE VISIT, [facility] TELEMEDICINE [facility], [address] [place] [address] [place], [id number] , [place] tel: [phone] [facility] (chief complaint) Bilateral primary osteoarthritis of kneeOther intervertebral disc degeneration, lumbar regionPain in left ankleOther bursitis of hip, left hipLong term (current) use of opiate analgesic Apr-0 1 [place] Lisseth. [address] [place], [id number] , [place]. tel:[phone] Referring Provider: Ravi Gonzalez, [address] [place], [place] [address]ms [place] Darrenheriberto real[place], [address] . tel:[phone] OFFICE VISIT, [facility], [address] [place], [id number] , [place] tel:[phone] [facility] [place] Widespread pain (chief complaint) Bilateral primary osteoarthritis of kneeOther intervertebral disc degeneration, lumbar regionPain in left ankleLong term (current) use of opiate analgesicOther bursitis of hip, left hip 1 Christian Montanez. [address] [place], [id number] , [place]. tel: [phone] Referring Provider: Ravi Gonzalez, [address] [place], [address] . tel:[phone] OFFICE VISIT, [facility] TELEMEDICINE [facility], [address] [place], [id number] , [place] tel:[phone] [facility] Widespread pain (chief complaint) Bilateral primary osteoarthritis of kneeOther intervertebral disc degeneration, lumbar regionPain in left ankleLong term (current) use of opiate analgesic 1 Christian Montanez. [address] [place], [address] , [place]. tel:[phone] Referring Provider: Ravi Gonzalez, [address] [place], [address] . 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 [address] [place], [id number] , [place]. tel: [phone] OFFICE VISIT, [facility] TELEMEDICINE [facility], [address] [place], [id number] , [place] tel: [phone] [facility] [place] Widespread pain (chief complaint) Bilateral primary osteoarthritis of kneeOther intervertebral disc degeneration, lumbar regionPain in left ankleLong term (current) use of opiate analgesic 1 Christian Montanez. [address] [place], [id number] , [place]. tel:[phone] Referring Provider: Ravi Gonzalez, [address] [place], [address] . tel:[phone] OFFICE VISIT, [facility] TELEMEDICINE [facility], [address] [place], [id number] , [place] tel: [phone] [facility] [place] Widespread pain (chief complaint) Postlaminectomy syndrome, not elsewhere classifiedPlantar fasciitisBilatera l primary osteoarthritis of kneeLong term (current) use of opiate analgesicOther intervertebral disc degeneration, lumbar regionPain in left ankle Dec-0 8-202 0 [address] Lisseth. [address] [place], [id number] , [place]. tel: [phone] Referring Provider: Ravi Gonzalez, [facility] [place], [address] . tel:[phone] OFFICE VISIT, [facility], [address] [place], [id number] , [place] tel: [phone] [facility] [place] Widespread pain (chief complaint) Postlaminectomy syndrome, not elsewhere classifiedPlantar fasciitisBilatera l primary osteoarthritis of kneeLong term (current) use of opiate analgesicOther intervertebral disc degeneration, lumbar regionPain in left ankle Nov-0 6-202 0 [address] Lisseth. [address] [place], [id number] , [place]. tel: [phone] Referring Provider: Ravi Gonzalez, [place], [address] . tel:[phone] OFFICE VISIT, [facility], [address] [place], [id number] , [place] tel: [phone] [facility] [place] Widespread pain (chief complaint) Postlaminectomy syndrome, not elsewhere classifiedPlantar fasciitisBilatera l primary osteoarthritis of kneeLong term (current) use of opiate analgesicOther intervertebral disc degeneration, lumbar region Oct-0 8-202 0 [place] Lisseth. [address] [place], [id number] , [place]. tel: [phone] Referring Provider: Ravi Gonzalez, [place], [address] . tel:[phone] OFFICE VISIT, [facility] TELEMEDICINE [facility], [address] [place] [address] [place], [id number] , [place] tel: [phone] [facility] [place] Widespread pain (chief complaint) Postlaminectomy syndrome, not elsewhere classifiedPlantar fasciitisBilatera l primary osteoarthritis of kneeLong term (current) use of opiate analgesicOther intervertebral disc degeneration, lumbar region Sep-0 8-202 0 [address] Lisseth. [address] [place], [address] , [place]. tel:[phone] Referring Provider: Ravi Gonzalez, [address] [place] [address] [place], [address] . tel:[phone] OFFICE/OUTPAT IENT VISIT, [facility], [address] [place] [address] [place], [id number] , [place] tel: [phone] [facility] [place] Widespread pain (chief complaint) Postlaminectomy syndrome, not elsewhere classifiedPlantar fasciitisBilatera l primary osteoarthritis of kneeLong term (current) use of opiate analgesicOther intervertebral disc degeneration, lumbar region Aug-0 6 0 [place] Lisseth. [address] [place], [id number] , [place]. tel:[phone] Referring Provider: Eduardo Sanchez , [address], [address]. tel:[phone] [facility], [address] [place] [address] [place], [id number] , [place] tel:[phone] [facility] [place] No Information 0 Trut[place] Lisseth. [address] [facility] [address] [place], [id number] , [place]. tel:[phone] Referring Provider: Eduardo Sanchez , [address], [address]. tel:[phone] OFFICE VISIT, EST TELEMEDICINE [facility], [address] [place] [address] [place], [id number] , [place] tel: [phone] [facility] [place] Widespread pain (chief complaint) Other intervertebral disc degeneration, lumbar regionPostlaminec kay syndrome, not elsewhere classifiedPlantar fasciitisBilatera l primary osteoarthritis of kneeLong term (current) use of opiate analgesic Apr- 0- 0 [place] Lisseth. [address], [id number] , [place]. tel: [phone] Referring Provider: Ravi Gonzalez, [address] [place], [address] . tel:[phone] OFFICE VISIT, EST TELEMEDICINE [facility], [address] [place], [id number] , [place] tel: [phone] [facility] [place] Widespread pain (chief complaint) Other intervertebral disc degeneration, lumbar regionPostlaminec kay syndrome, not elsewhere classifiedPlantar fasciitisBilatera l primary osteoarthritis of kneeLong term (current) use of opiate analgesic Mar- 0 Trut[place] Lisseth. [address] Ramosadrienne kurtisL[place], [id number] , [place]. tel: [phone] Referring Provider: Ravi Gonzalez, [facility] [place], [address] . 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 [address] DarrenL[place]ITA [place], [id number] , [place]. tel:[phone] Referring Provider: Ravi Gonzalez, [facility] [place], [address] . tel:[phone] OFFICE VISIT, EST TELEMEDICINE [facility], [address] [place], [id number] , [place] tel: [phone] [facility] Widespread pain (chief complaint) Postlaminectomy syndrome, not elsewhere classifiedOther intervertebral disc degeneration, lumbar regionPlantar fasciitisBilatera l primary osteoarthritis of kneeLong term (current) use of opiate analgesic 0 [place] Lisseth. [address] [place], [id number] , [place]. tel: [phone] Referring Provider: Ravi Gonzalez, [address] [facility] [place], [address] . tel:[phone] OFFICE VISIT, [facility] TELEMEDICINE [facility], [address] [facility] [place], [id number] , [place] tel: [phone] [facility] Widespread pain (chief complaint) Postlaminectomy syndrome, not elsewhere classifiedOther intervertebral disc degeneration, lumbar regionPlantar fasciitisBilatera l primary osteoarthritis of kneeLong term (current) use of opiate analgesic 0 Tr[place] Lisseth. [address] [facility] [place] [place], [id number] , [place]. tel: [phone] OFFICE/OUTPAT IENT VISIT, [facility], [facility] Children[facility] [place], [id number] , [place] tel: [phone] [facility] [place] Widespread pain (chief complaint) Postlaminectomy syndrome, not elsewhere classifiedOther intervertebral disc degeneration, lumbar regionPlantar fasciitisBilatera l primary osteoarthritis of kneeLong term (current) use of opiate analgesic 0 [place] Lisseth. [address] [place], [address] , [place]. tel: [phone] Referring Provider: Slade Robb [facility] [address] [address] [place], [address]. tel:[phone] OFFICE VISIT, EST TELEMEDICINE [facility], [address] [place], [id number] , [place] tel: [phone] [facility] [place] Widespread pain (chief complaint) Postlaminectomy syndrome, not elsewhere classifiedOther intervertebral disc degeneration, lumbar regionPlantar fasciitisBilatera l primary osteoarthritis of kneeLong term (current) use of opiate analgesic 9 0 [address] Lisseth. [address] [place], [address] , [place]. [phone] Referring Provider: Ravi Gonzalez, [address] [place] [address] [place], [address] . tel:[phone] OFFICE/OUTPAT IENT VISIT, [facility], [address] [place] [address] Gh[place]hy[place], [place], [id number] , [place] tel:[phone] [facility] [place] Widespread pain (chief complaint) Postlaminectomy syndrome, not elsewhere classifiedOther intervertebral disc degeneration, lumbar regionPlantar fasciitisBilatera l primary osteoarthritis of kneeLong term (current) use of opiate analgesic 9 Odessau Lisseth. [address] [facility] [place], [id number] , [place]. tel:[phone] Referring Provider: Eduardo Sanchez , [facility] [address] [place] [address], [address]. tel:[phone] OFFICE/OUTPAT IENT VISIT, [facility], [address] [place] [address] [place], [place], [address] , [place] [phone] [facility] [place] Widespread pain (chief complaint) Postlaminectomy syndrome, not elsewhere classifiedOther intervertebral disc degeneration, lumbar regionPlantar fasciitisDrug induced constipationBilat eral primary osteoarthritis of kneeLong term (current) use of opiate analgesicPain in left shoulderPain in right shoulderPain in left ankle 9 Tr[place] Lisseth. [address] [facility] [place], [place], [id number] , [place]. [phone] Referring Provider: Eduardo Sanchez , [facility] [address] [place] [address], [address]. tel:[phone] OFFICE/OUTPAT IENT VISIT, [facility], [address] [facility] [place], [place], [address] , [place] tel: [phone] [facility] [place] Widespread pain (chief complaint) Bilateral primary osteoarthritis of kneeOther intervertebral disc degeneration, lumbar regionPostlaminec kay syndrome, not elsewhere classifiedLong term (current) use of opiate analgesicDrug induced constipationEncou nter for therapeutic drug level monitoringPlantar fasciitis 9 Trut[place]au Lisseth. [address] [facility] [place] [place], [place], [address] , [place]. tel: [phone] Referring Provider: Eduardo Sanchez , [address], [address]. tel:[phone] OFFICE/OUTPAT IENT VISIT, [facility], [address] [facility] Ghanshyam [place], [place], [address] , [place] tel: [phone] [facility] Widespread pain (chief complaint) Bilateral primary osteoarthritis of kneeOther intervertebral disc degeneration, lumbar regionPostlaminec kay syndrome, not elsewhere classifiedLong term (current) use of opiate analgesic Sep- 9 Trut[place] Lisseth. [address] [facility] Gh[place], [place], [address] , [place]. tel: [phone] Referring Provider: Eduardo Sanchez , [facility] [address] [place] [address], [address]. tel:[phone] OFFICE/OUTPAT IENT VISIT, [facility], [address] [facility] [place], [place], [address] , [place] tel: [phone] [facility] [place] Widespread pain (chief complaint) Bilateral primary osteoarthritis of kneeOther intervertebral disc degeneration, lumbar regionPostlaminec kay syndrome, not elsewhere classifiedLong term (current) use of opiate analgesic 9 Tr[place] Lisseth. [address] [facility] [place] , [place], [address] , [place]. tel: [phone] Referring Provider: Eduardo Sanchez [facility] [address] [place] [address], [address]. tel:[phone] OFFICE/OUTPAT IENT VISIT, [facility], [address] [facility] [place], [place], [address] , [place] tel:[phone] [facility] [place] Widespread pain (chief complaint) Bilateral primary osteoarthritis of kneeOther intervertebral disc degeneration, lumbar regionPostlaminec kay syndrome, not elsewhere classifiedLong term (current) use of opiate analgesic 9 Christian Montanez. [address] [facility] [place], [place], [address] , [place]. tel:[phone] Referring Provider: Eduardo Sanchez [address], [address]. tel:[phone] OFFICE/OUTPAT IENT VISIT, [facility], [address] [place], [place], [id number] , [place] tel:[phone] [facility] [place] Widespread pain (chief complaint) Bilateral primary osteoarthritis of kneeOther intervertebral disc degeneration, lumbar regionLong term (current) use of opiate analgesicEncounte r for therapeutic drug level monitoringPostlam inectomy syndrome, not elsewhere classified Christian Montanez. [address] [facility] [place], [place], [address] , [place]. tel:[phone] Referring Provider: Eduardo Sanchez [facility] [address] Medical CenterIn[place], [address]. tel:[phone] OFFICE/OUTPAT IENT VISIT, [facility], [address] [facility] [place], [place], [address] , [place] tel:[phone] [facility] Widespread pain (chief complaint) Other intervertebral disc degeneration, lumbar regionLow back painLong term (current) use of opiate analgesic Jan- 9 Latia Chu. [address] [facility] [place], [place], [address] , [place]. tel:[phone] Referring Provider: Eduardo Sanchez [facility] [address] [place], [address]. tel:[phone] OFFICE/OUTPAT IENT VISIT, [facility], [address] [place] [address], [id number] , [place] tel: [phone] [facility] [place] Widespread pain (chief complaint) Other intervertebral disc degeneration, lumbar regionLow back painLong term (current) use of opiate analgesic 9 Latia Kimberley. [address] [place] [address], [id number] , [place]. tel: [phone] Referring Provider: Eduardo Sanchez , [address], [address]. tel:[phone] OFFICE/OUTPAT IENT VISIT, [facility], [address] [place] [address], [id number] , [place] tel: [phone] [facility] Widespread pain (chief complaint) Other intervertebral disc degeneration, lumbar regionLow back pain Sep- 8 Latia Kimberley. [address] [place] [address], [id number] , [place]. tel: [phone] Referring Provider: Eduardo Sanchez [address], [address]. tel:[phone] OFFICE/OUTPAT IENT VISIT, [facility], [address] [place] [address], [id number] , [place] tel: [phone] [facility] Widespread pain (chief complaint) Other intervertebral disc degeneration, lumbar regionBilateral primary osteoarthritis of kneePain in right shoulderPain in left shoulderLong term (current) use of opiate analgesic 8 Christian Montanez. [address] [place] [address], [id number] , [place]. tel:[phone] Referring Provider: Eduardo Sanchez , [address], [address]. tel:[phone] OFFICE/OUTPAT IENT VISIT, [facility], [address] [facility] [place], [id number] , [place] tel: [phone] [facility] [place] Widespread pain (chief complaint) Bilateral primary osteoarthritis of kneeOther intervertebral disc degeneration, lumbar regionPain in right shoulderPain in left shoulder [address]. [address] [place], [place], [id number] , [place]. tel: [phone] Referring Provider: Eduardo Sanchez , [facility] [id number] [place] [address], [address]. tel:[phone] OFFICE/OUTPAT IENT VISIT, [facility], [address] [facility] [place], [id number] , [place] tel: [phone] [facility] [place] Widespread pain (chief complaint) Other intervertebral disc degeneration, lumbar regionPain in left kneePain in right kneeBilateral primary osteoarthritis of knee [address] Liss[address]. [address] [facility] [place], [place], [id number] , [place]. tel: [phone] Referring Provider: Eduardo Sanchez , [facility] [id number] [place] [address], [address]. tel:[phone] OFFICE/OUTPAT IENT VISIT, [facility], [address] [facility] [place], [place], [id number] , [place] tel: [phone] [facility] [place] Widespread pain (chief complaint) Other intervertebral disc degeneration, lumbar regionPain in left kneePain in right kneeBilateral primary osteoarthritis of knee [address]. [address] [facility] [place], [place], [id number] , [place]. tel: [phone] Referring Provider: Eduardo Sanchez , [facility] [id number] [place] [address], [address]. tel:[phone] OFFICE/OUTPAT IENT VISIT, [facility], [address] [facility] [place], [place], [id number] , [place] tel: [phone] [facility] [place] Widespread pain (chief complaint) Other intervertebral disc degeneration, lumbar regionPain in left kneePain in right kneeBilateral primary osteoarthritis of knee January-0 [address]. [address] [facility] [place], [id number] , [place]. tel: [phone] Referring Provider: Eduardo Sanchez , [address], [address]. tel:[phone] OFFICE/OUTPAT IENT VISIT, EST [facility], [address] [facility] [place], [id number] , [place] tel: [phone] [facility] ([facility] complaint) Other intervertebral disc degeneration, lumbar regionPain in left kneePain in right kneeBilateral primary osteoarthritis of knee Fe- 8 [address]. [address] [place], [place], [id number] , [place]. tel: [phone] Referring Provider: Eduardo Sanchez , [facility] [address] [place] [address], [address]. tel:[phone] OFFICE/OUTPAT IENT VISIT, EST [facility], [address] [facility] [place], [id number] , [place] tel: [phone] [facility] [place] Widespread pain (chief complaint) Other intervertebral disc degeneration, lumbar regionPain in left kneePain in right knee Dec 7 [address]. [address] [facility] [place], [id number] , [place]. tel: [phone] Referring Provider: Eduardo Sanchez [address], [address]. tel:[phone] OFFICE/OUTPAT IENT VISIT, EST [facility], [address] [facility] [place], [id number] , [place] tel: [phone] [facility] [place] Widespread pain (chief complaint) Other intervertebral disc degeneration, lumbar regionPain in left kneePain in right knee 7 [address]. [address], [id number] , [place]. tel:[phone] Referring Provider: Eduardo Sanchez , [facility] [id number] [place] [address], [address]. tel:[phone] OFFICE/OUTPAT IENT VISIT, [facility], [address] [place], [id number] , [place] tel: [phone] [facility] [place] Widespread pain (chief complaint) Other intervertebral disc degeneration, lumbar regionPain in right kneePain in left knee 7 [address]. [address] [place], [id number] , [place]. tel:[phone] Referring Provider: Eduardo Sanchez , [address], [address]. tel:[phone] OFFICE/OUTPAT IENT VISIT, [facility], [address] [place], [id number] , [place] tel:[phone] [facility] [place] Widespread pain (chief complaint) Other intervertebral disc degeneration, lumbar regionPain in right kneePain in left knee 7 [address]. [address] [place], [id number] , [place]. tel:[phone] Referring Provider: Eduardo Sanchez , [address], [address]. tel:[phone] OFFICE/OUTPAT IENT VISIT, [facility], [address] [place], [id number] , [place] tel:[phone] [facility] [place] Widespread pain (chief complaint) Other intervertebral disc degeneration, lumbar regionPain in right kneePain in left knee January-3 0201 7 [address]. [address] [place], [id number] , [place]. tel:[phone] Referring Provider: Eduardo Sanchez [facility] [id number] [place] [address], [address]. tel:[phone] OFFICE/OUTPAT IENT VISIT, [facility], [address] [place], [id number] , [place] tel:[phone] [facility] [place] Widespread pain (chief complaint) Other intervertebral disc degeneration, lumbar regionPain in left kneePain in right knee Apr-2 6-201 [address]. [address] [facility] [place], [id number] , [place]. tel:[phone] Referring Provider: Eduardo Sanchez , [facility] [address] [place] [address], [address]. tel:[phone] OFFICE/OUTPAT IENT VISIT, [facility], [address] [facility] [place], [id number] , [place] tel:[phone] [facility] [place] Widespread pain (chief complaint) Other intervertebral disc degeneration, lumbar regionPain in left kneePain in right knee Mar-3 0-201 7 [address] Yeung. [address] [facility] [place], [id number] , [place]. tel:[phone] Referring Provider: Eduardo Sanchez [facility] [address] [place] [address], [address]. tel:[phone] OFFICE/OUTPAT IENT VISIT, [facility], [address] [place], [id number] , [place] tel:[phone] [facility] [place] Widespread pain (chief complaint) Other intervertebral disc degeneration, lumbar regionPain in left kneePain in right knee Mar-0 1-201 7 [address]. [address] [facility] [place], [id number] , [place]. tel:[phone] Referring Provider: Eduardo Sanchez [address] [place], [address]. tel:[phone] OFFICE/OUTPAT IENT VISIT, [facility], [address] [facility] [place], [id number] , [place] tel: [phone] [facility] [place] Widespread pain (chief complaint) Other intervertebral disc degeneration, lumbar regionPain in left kneePain in right knee 7 [address]. [address] [facility] [place], [address] , [place]. tel: [phone] Referring Provider: Eduardo Sanchez , [address], [address]. tel:[phone] OFFICE/OUTPAT IENT VISIT, [facility], [address] [place] [address], [id number] , [place] tel: [phone] [facility] Widespread pain (chief complaint) Other intervertebral disc degeneration, lumbar regionPain in left kneePain in right knee Dec-2 6 [address]. [address] [facility] [place], [id number] , [place]. tel: [phone] Referring Provider: Eduardo Sanchez , [address], [address]. tel:[phone] OFFICE/OUTPAT IENT VISIT, [facility], [address] [place] [address], [id number] , [place] tel: [phone] [facility] Widespread pain (chief complaint) Other intervertebral disc degeneration, lumbar regionPain in left kneePain in right knee Dec-0 201 [address]. [address] [facility] [place], [id number] , [place]. tel:[phone] Referring Provider: Eduardo Sanchez , [facility] [address] [place] [address], [address]. tel:[phone] OFFICE/OUTPAT IENT VISIT, [facility], [address] [place], [place], [id number] , [place] tel:[phone] [facility] widespread pain (chief complaint) Other intervertebral disc degeneration, lumbar regionPain in left kneePain in right knee Nov-0 1-201 6 [address]. [address] [facility] [place], [place], [address] , [place]. tel:[phone] Referring Provider: Eduardo Sanchez , [address], [address]. tel:[phone] OFFICE/OUTPAT IENT VISIT, [facility], [address] [place] [address], [id number] , [place] tel:[phone] [facility] widespread pain (chief complaint) Other intervertebral disc degeneration, lumbar regionPain in right kneePain in left knee Oct-0 4-201 [address]. [address] [place], [place], [id number] , [place]. tel:[phone] Referring Provider: Eduardo Sanchez , [address], [address]. tel:[phone] OFFICE/OUTPAT IENT VISIT, [facility], [address] [place] [address], [id number] , [place] tel:[phone] [facility] widespread pain (chief complaint) Low back painOther intervertebral disc degeneration, lumbar region Sep-0 6-201 [address]. [address] [place], [place], [id number] , [place]. tel:[phone] Referring Provider: Eduardo Sanchez [address], [address]. tel:[phone] OFFICE/OUTPAT IENT VISIT, [facility], [address] [place] [address], [id number] , [place] tel:[phone] [facility] [place] widespread pain (chief complaint) Low back painLong term (current) use of opiate analgesic 6 [address]. [address] [facility] [place], [place], [id number] , [place]. tel:[phone] Referring Provider: Eduardo Sanchez [facility] [address] [place] [address], [address]. tel:[phone] OFFICE CONSULTATION [facility], [address] [place], [place], [id number] , [place] [phone] [facility] [place] widespread pain (chief complaint) Low back painLong term (current) use of opiate analgesic 6 [address]. [address] [facility] [place], [place], [id number] , [place]. tel:[phone] Referring Provider: Eduardo Sanchez , [address], [address]. tel:[phone] Family History Family Member Type Diagnosis Age At Onset No Information Payers Payer name Insurance type Covered democrat ID Authorjennifera vanihalie(s) Blue Cross Medicare Replacement 16 [id number] Social History Type Description Quantity Date Captured Comments Alcohol Use Details No Caffeine Use Details Unknown Tobacco Use Status Current non-smoker Smoking Status Never smoker Sex Female Chief Complaint And Reason For Visit From encounter dated '01/23/2024 10:32'. Widespread pain (chief complaint). Description: Severity level is 4. Duration: chronic. Location ofthe pain is lower back, bilateral knee and left ankle. The problem is stable. Symptom is aggravatedby overuse. Relieving factors include rest and Rx Meds. Pertinent negatives include diarrhea, fatigue, fever and incontinence (urinary). Reason For Referral Reason For Referral No Information Plan Of Treatment Date Type Action Status Goal AST (SGOT). Due on due Goal UDT. Due on due Goal Creatinine. 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 Due on due Goal Order Annual PT. Due on due Goal ADMINISTRATIVE COURT JUSTICE Scanned. Due on due Goal ALT (SGPT). Due on due Goal CT-Colonography. Due on due Goal Height. Due on d ue Goal Tobacco Use. Due on due Goal Unhealthy drug u se screening. Due on due Goal Update Social Hi story. Due on due Goal PHQ-9. Due on du e Goal Zoster vaccine ( 1st). Due on due Goal FIT-DNA. Due on due Goal Review Allergy L ist. Due on due Goal Lipid panel. Due on due Goal Weight. Due on d ue Goal Medication Recon ciliation. Due on due Goal Hepatitis C scre ening. Due on due Goal FIT. Due on due Goal OARS. Due on due Goal Weight. Due on d ue Goal AST (SGOT). Due on due Goal UDT. Due on due Goal Update Social Hi story. Due on due Goal Lipid panel. 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 Due on due Goal Order Annual PT. Due on due Goal PHQ-9. Due on du e Goal CT-Colonography. Due on due Goal Review Allergy L ist. Due on due Goal Creatinine. Due on due Goal FIT-DNA. Due on due Goal Medication Recon ciliation. Due on due Goal Hepatitis C scre ening. Due on due Goal Zoster vaccine ( ). Due on due Goal FIT. Due on due Goal ADMINISTRATIVE COURT JUSTICE Scanned. Due on due Goal Tobacco Use. Due on due Goal ALT (SGPT). Due on due Goal Height. Due on d ue Goal OARS. Due on due Goal Unhealthy drug u se screening. Due on due Goal OARS. Due on due Goal Creatinine. Due on due Goal Unhealthy drug u se screening. Due on due Goal Update Social Hi story. Due on due Goal Review Allergy L ist. Due on due Goal UDT. Due on due Goal Lipid panel. Due on due Goal Height. Due on d ue Goal PHQ-9. Due on du e Goal Weight. Due on d ue Goal Order Annual PT. Due on due Goal Hepatitis C scre ening. Due on due Goal FIT. Due on due Goal CT-Colonography. Due on due Goal Tobacco Use. Due on due Goal FIT-DNA. Due on due Goal ADMINISTRATIVE COURT JUSTICE Scanned. Due on due Goal Medication Recon ciliation. Due on due Goal Zoster vaccine ( 1st). Due on due Goal ALT (SGPT). 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 Due on due Goal AST (SGOT). Due on due Goal FIT. Due on due Goal CT-Colonography. Due on due Goal Zoster vaccine ( 1st). Due on due Goal PHQ-9. Due on du e Goal ALT (SGPT). Due on due Goal ADMINISTRATIVE COURT JUSTICE Scanned. Due on due Goal AST (SGOT). Due on due Goal FIT-DNA. Due on due Goal Hepatitis C scre ening. Due on due Goal Order Annual PT. Due on due Goal UDT. Due on due Goal Update Social Hi story. Due on due Goal Weight. Due on d ue Goal OARS. Due on due Goal Unhealthy drug u se screening. Due on due Goal Medication Recon ciliation. Due on due Goal Height. Due on d ue Goal Lipid panel. Due on due Goal Creatinine. 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 Due on due Goal Review Allergy L ist. Due on due Goal Tobacco Use. Due on due Goal Order Annual PT. Due on due Goal Creatinine. Due on 23 due Goal ALT (SGPT). Due on 22 due Goal FIT. Due on due Goal FIT-DNA. 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 Due on due Goal Lipid panel. Due on due Goal Zoster vaccine ( 1st). Due on due Goal ADMINISTRATIVE COURT JUSTICE Scanned. Due on due Goal Weight. Due on d ue Goal Unhealthy drug u se screening. Due on due Goal Height. Due on d ue Goal Tobacco Use. Due on due Goal Update Social Hi story. Due on due Goal Hepatitis C scre ening. Due on due Goal UDT. Due on due Goal OARS. Due on due Goal Medication Recon ciliation. Due on due Goal AST (SGOT). Due on due Goal Review Allergy L ist. Due on due Goal PHQ-9. Due on du e Goal CT-Colonography. Due on due Goal Tobacco Use. Due on due Goal Order Annual PT. 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 Due on due Goal UDT. Due on due Goal ALT (SGPT). Due on due Goal ADMINISTRATIVE COURT JUSTICE Scanned. Due on due Goal OARS. Due on due Goal AST (SGOT). Due on due Goal Creatinine. Due on due Goal Update Social Hi story. Due on due Goal FIT. Due on due Goal Zoster vaccine ( 1st). Due on due Goal Medication Recon ciliation. Due on due Goal FIT-DNA. Due on due Goal Lipid panel. Due on [address]-Colonography. Due on due Goal Review Allergy L ist. Due on due Goal Unhealthy drug u se screening. Due on due Goal PHQ-9. Due on du e Goal Weight. Due on d ue Goal Height. Due on d ue Goal Hepatitis C scre ening. Due on due Goal FIT-DNA. Due on due Goal Weight. Due on d ue Goal PHQ-9. Due on du e Goal OARS. Due on due Goal Zoster vaccine ( 1st). Due on due Goal CT-Colonography. 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 Due on due Goal Unhealthy drug u se screening. Due on due Goal Update Social Hi story. Due on due Goal FIT. Due on due Goal AST (SGOT). Due on due Goal ADMINISTRATIVE COURT JUSTICE Scanned. Due on due Goal UDT. Due on due Goal Height. Due on d ue Goal Hepatitis C scre ening. Due on due Goal Medication Recon ciliation. Due on due Goal Creatinine. Due on due Goal ALT (SGPT). Due on due Goal Review Allergy L ist. Due on due Goal Order Annual PT. Due on due Goal Tobacco Use. Due on due Goal Lipid panel. Due on due Goal AST (SGOT). Due on due Goal OARS. Due on due Goal Order Annual PT. Due on due Goal ADMINISTRATIVE COURT JUSTICE Scanned. 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 Due on due Goal Creatinine. Due on due Goal ALT (SGPT). Due on due Goal UDT. Due on due Goal Tobacco Use. Due on due Goal Update Social Hi story. Due on due Goal Review Allergy L ist. Due on due Goal Zoster vaccine ( 1st). Due on due Goal Medication Recon ciliation. Due on due Goal Unhealthy drug u se screening. Due on due Goal Lipid panel. Due on due Goal CT-Colonography. Due on due Goal PHQ-9. Due on du e Goal Hepatitis C scre ening. Due on due Goal FIT-DNA. Due on due Goal Weight. Due on d ue Goal Height. Due on d ue Goal FIT. Due on due Goal Creatinine. Due on due Goal FIT-DNA. Due on due Goal Weight. Due on d ue Goal Update Social Hi story. Due on due Goal Medication Recon ciliation. Due on due Goal Order Annual PT. Due on due Goal ADMINISTRATIVE COURT JUSTICE Scanned. Due on due Goal Unhealthy drug u se screening. Due on due Goal FIT. Due on due Goal ALT (SGPT). Due on due Goal OARS. Due on due Goal Review Allergy L ist. Due on due Goal Tobacco Use. Due on 023 due Goal AST (SGOT). Due on due Goal Height. Due on d ue Goal MARK[employer]IST Paperwork. Due on due Goal Hepatitis C scre ening. Due on due Goal Lipid panel. Due on 023 due Goal UDT. Due on due Goal Zoster vaccine ( 1st). Due on due Goal CT-Colonography. Due on due Goal PHQ-9. Due on du e Goal Creatinine. Due on due Goal CT-Colonography. Due on due Goal AST (SGOT). Due on due Goal UDT. Due on due Goal Order Annual PT. Due on due Goal ADMINIST[address]ATIVE COURT JUSTICE Scanned. Due on due Goal Lipid panel. Due on due Goal FIT-DNA. Due on due Goal Hepatitis C scre ening. Due on due Goal Review Allergy L ist. Due on due Goal Medication Recon ciliation. 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 Due on due Goal Update Social Hi story. Due on due Goal FIT. Due on due Goal Zoster vaccine ( 1st). Due on due Goal Height. Due on d ue Goal ALT (SGPT). Due on due Goal Tobacco Use. Due on due Goal OARS. Due on due Goal PHQ-9. Due on du e Goal Unhealthy drug u se screening. Due on due Goal Weight. Due on d ue Goal PHQ-9. Due on du e Goal CT-Colonography. Due on due Goal AST (SGOT). Due on due Goal Order Annual PT. Due on due Goal Tobacco Use. Due on due Goal Lipid panel. Due on due Goal ADMINIST[address]IVE [address] JUSTICE Scanned. Due on due Goal UDT. Due on due Goal Update Social Hi story. Due on due Goal ALT (SGPT). Due on due Goal Zoster vaccine ( 1st). 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 Due on due Goal Creatinine. Due on due Goal FIT-DNA. Due on due Goal Hepatitis C scre ening. Due on due Goal Medication Recon ciliation. Due on due Goal Weight. Due on d ue Goal FIT. Due on due Goal Unhealthy drug u se screening. Due on due Goal Review Allergy L ist. Due on due Goal OARS. Due on due Goal Height. Due on d ue Goal UDT. 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 Due on due Goal OARS. Due on due Goal Creatinine. Due on due Goal Tobacco Use. Due on due Goal AST (SGOT). Due on due Goal Review Allergy L ist. Due on due Goal Zoster vaccine ( 1st). Due on due Goal Lipid panel. Due on due Goal FIT-DNA. Due on due Goal ADMINIST[address]ATIVE COURT JUSTICE Scanned. Due on 023 due Goal Weight. Due on d ue Goal Order Annual PT. Due on due Goal Height. Due on d ue Goal PHQ-9. Due on du e Goal Update Social Hi story. Due on due Goal Medication Recon ciliation. Due on due Goal ALT (SGPT). Due on due Goal Hepatitis C scre ening. Due on due Goal FIT. Due on due Goal CT-Colonography. Due on due Goal Unhealthy drug u se screening. Due on due Goal UDT. Due on due Goal Creatinine. Due on due Goal OARS. Due on due Goal Review Allergy L ist. Due on due Goal FIT-DNA. Due on due Goal Height. Due on d ue Goal Medication Recon ciliation. Due on due Goal Zoster vaccine ( 1st). Due on due Goal PHQ-9. Due on du e Goal Unhealthy drug u se screening. Due on due Goal AST (SGOT). Due on due Goal FIT. Due on due Goal CT-Colonography. Due on due Goal ADMINIST[address]ATIVE COURT JUSTICE Scanned. Due on due Goal ALT (SGPT). Due on due Goal Tobacco Use. Due on due Goal Weight. Due on d ue Goal MARKETING [employer] SPECIALIST Paperwork. Due on due Goal Order Annual PT. Due on due Goal Lipid panel. Due on due Goal Update Social Hi story. Due on due Goal Hepatitis C scre ening. Due on due Goal FIT-DNA. Due on due Goal Weight. Due on d ue Goal OARS. Due on due Goal PHQ-9. Due on du e Goal UDT. Due on due Goal Creatinine. Due on due Goal ALT (SGPT). Due on due Goal ADMINIST[address]ATIVE COURT JUSTICE Scanned. Due on due Goal FIT. Due on due Goal Medication Recon ciliation. 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 Due on due Goal AST (SGOT). Due on due Goal Review Allergy L ist. Due on due Goal Unhealthy drug u se screening. Due on due Goal Hepatitis C scre ening. Due on due Goal Update Social Hi story. Due on due Goal Zoster vaccine ( ). Due on due Goal Height. Due on d ue Goal Lipid panel. Due on due Goal Order Annual PT. Due on due Goal Tobacco Use. Due on due Goal CT-Colonography. Due on due Goal Zoster vaccine ( ). Due on due Goal UDT. Due on due Goal Order Annual PT. Due on due Goal Lipid panel. Due on due Goal PHQ-9. Due on du e Goal Height. Due on d ue Goal AST (SGOT). Due on due Goal ALT (SGPT). Due on due Goal Tobacco Use. Due on due Goal Review Allergy L ist. Due on due Goal Update Social Hi story. Due on due Goal Medication Recon ciliation. Due on due Goal Unhealthy drug u se screening. Due on due Goal FIT-DNA. Due on due Goal ADMINIST[address]IVE COURT JUSTICE Scanned. Due on due Goal OARS. Due on due Goal Creatinine. Due on due Goal CT-Colonography. Due on due Goal Weight. Due on d ue Goal MARKETING [employer] SPECIALIST Paperwork. Due on due Goal FIT. Due on due Goal Hepatitis C scre ening. Due on due Goal Review Allergy L ist. Due on due Goal PHQ-9. Due on du e Goal Lipid panel. Due on due Goal FIT-DNA. Due on due Goal Hepatitis C scre ening. Due on due Goal Zoster vaccine ( 1st). Due on due Goal Height. Due on d ue Goal FIT. Due on due Goal Update Social Hi story. Due on due Goal OARS. 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 Due on due Goal Order Annual PT. Due on due Goal Creatinine. Due on due Goal AST (SGOT). Due on due Goal ADMINIST[address]ATIVE COURT JUSTICE Scanned. Due on due Goal ALT (SGPT). Due on due Goal UDT. Due on due Goal CT-Colonography. Due on due Goal Tobacco Use. Due on due Goal Medication Recon ciliation. Due on due Goal Weight. Due on d ue Goal Unhealthy drug u se screening. Due on due Goal Order Annual PT. Due on due Goal CT-Colonography. Due on due Goal ALT (SGPT). Due on due Goal Creatinine. Due on due Goal Weight. Due on d ue Goal MARKETING [employer]AMS SPECIALIST Paperwork. Due on due Goal ADMINIST[address]IVE COURT JUSTICE Scanned. Due on due Goal UDT. Due on due Goal OARS. Due on due Goal AST (SGOT). Due on due Goal PHQ-9. Due on du e Goal Hepatitis C scre ening. Due on due Goal FIT-DNA. Due on due Goal Height. Due on d ue Goal FIT. Due on due Goal Zoster vaccine ( 1st). Due on due Goal Review Allergy L ist. Due on due Goal Lipid panel. Due on due Goal Medication Recon ciliation. Due on due Goal Tobacco Use. Due on due Goal Unhealthy drug u se screening. Due on due Goal Update Social Hi story. Due on due Goal Height. Due on d ue Goal ALT (SGPT). Due on due Goal OARS. Due on due Goal UDT. Due on due Goal Update Social Hi story. Due on due Goal Unhealthy drug u se screening. Due on due Goal FIT-DNA. Due on due Goal Weight. Due on d ue Goal PHQ-9. Due on du e Goal CT-Colonography. Due on due Goal Lipid panel. Due on due Goal FIT. Due on due Goal Creatinine. Due on due Goal Tobacco Use. Due on due Goal Hepatitis C scre ening. Due on due Goal Order Annual PT. Due on due Goal Medication Recon ciliation. Due on due Goal Review Allergy L ist. Due on due Goal Zoster vaccine ( 1st). 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 Due on due Goal AST (SGOT). Due on due Goal ADMINISTRATIVE COURT JUSTICE Scanned. Due on due Goal OARS. Due on due Goal Review Allergy L ist. Due on due Goal UDT. Due on due Goal ALT (SGPT). Due on due Goal ADMINISTRATIVE COURT JUSTICE Scanned. Due on due Goal Order Annual PT. Due on due Goal AST (SGOT). 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 Due on due Goal Creatinine. Due on due Goal Lipid panel. Due on due Goal Tobacco Use. Due on due Goal Zoster vaccine ( 1st). Due on due Goal Medication Recon ciliation. Due on due Goal FIT-DNA. Due on due Goal Height. Due on d ue Goal Unhealthy drug u se screening. Due on due Goal Weight. Due on d ue Goal CT-Colonography. Due on due Goal Update Social Hi story. Due on due Goal Hepatitis C scre ening. Due on due Goal FIT. Due on due Goal PHQ-9. Due on du e Goal Height. Due on d ue Goal Review Allergy L ist. Due on due Goal FIT. Due on due Goal Lipid panel. Due on due Goal PHQ-9. Due on du e Goal CT-Colonography. 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 Due on due Goal Medication Recon ciliation. Due on due Goal FIT-DNA. Due on due Goal Hepatitis C scre ening. Due on due Goal Weight. Due on d ue Goal Unhealthy drug u se screening. Due on due Goal AST (SGOT). Due on due Goal Tobacco Use. Due on due Goal Zoster vaccine ( 1st). Due on due Goal ADMINISTRATIVE COURT JUSTICE Scanned. Due on due Goal Order Annual PT. Due on due Goal ALT (SGPT). Due on due Goal UDT. Due on due Goal Update Social Hi story. Due on due Goal OARS. Due on due Goal Creatinine. Due on due Goal Weight. Due on d ue Goal FIT. Due on due Goal Lipid panel. Due on due Goal Review Allergy L ist. Due on due Goal Height. Due on d ue Goal ALT (SGPT). Due on due Goal Zoster vaccine ( 1st). Due on due Goal PHQ-9. Due on du e Goal UDT. Due on due Goal Hepatitis C scre ening. Due on due Goal OARS. Due on due Goal Order Annual PT. Due on due Goal ADMINISTRATIVE COURT JUSTICE Scanned. Due on due Goal Medication Recon ciliation. Due on due Goal Update Social Hi story. Due on due Goal CT-Colonography. 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 Due on due Goal Tobacco Use. Due on due Goal Unhealthy drug u se screening. Due on due Goal Creatinine. Due on due Goal AST (SGOT). Due on due Goal FIT-DNA. Due on due Goal Unhealthy drug u se screening. Due on due Goal ALT (SGPT). Due on due Goal Weight. Due on d ue Goal MARKETING PRO[employer] SPECIALIST Paperwork. Due on due Goal Tobacco Use. Due on due Goal FIT-DNA. Due on due Goal Update Social Hi story. Due on due Goal UDT. Due on due Goal Hepatitis C scre ening. Due on due Goal Order Annual PT. Due on due Goal CT-Colonography. Due on due Goal Zoster vaccine ( 1st). Due on due Goal Medication Recon ciliation. Due on due Goal AST (SGOT). Due on due Goal Creatinine. Due on due Goal PHQ-9. Due on du e Goal Review Allergy L ist. Due on due Goal Height. Due on d ue Goal ADMINISTRATIVE COURT JUSTICE Scanned. Due on due Goal OARS. Due on due Goal FIT. Due on due Goal Lipid panel. 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 Due on due Goal OARS. Due on due Goal Update Social Hi story. Due on due Goal Weight. Due on d ue Goal Creatinine. Due on due Goal UDT. Due on due Goal FIT-DNA. Due on due Goal ADMINISTRATIVE COURT JUSTICE Scanned. Due on due Goal Height. Due on d ue Goal Order Annual PT. Due on due Goal AST (SGOT). Due on due Goal Medication Recon ciliation. Due on due Goal ALT (SGPT). Due on due Goal Tobacco Use. Due on due Goal PHQ-9. Due on du e Goal Lipid panel. Due on due Goal CT-Colonography. Due on due Goal Hepatitis C scre ening. Due on due Goal Unhealthy drug u se screening. Due on due Goal Review Allergy L ist. Due on due Goal FIT. Due on due Goal Zoster vaccine ( ). Due on due Goal OARS. Due on due Goal ALT (SGPT). Due on due Goal UDT. 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 Due on due Goal Creatinine. Due on due Goal AST (SGOT). Due on due Goal Order Annual PT. Due on due Goal ADMINISTRATIVE COURT JUSTICE Scanned. Due on due Goal Zoster vaccine ( ). Due on due Goal PHQ-9. Due on du e Goal Hepatitis C scre ening. Due on due Goal Height. Due on d ue Goal Unhealthy drug u se screening. Due on due Goal CT-Colonography. Due on due Goal Review Allergy L ist. Due on due Goal Medication Recon ciliation. Due on due Goal Update Social Hi story. Due on due Goal Tobacco Use. Due on due Goal FIT. Due on due Goal Lipid panel. Due on due Goal FIT-DNA. Due on due Goal Weight. Due on d ue Goal PHQ-9. Due on du e Goal FIT. Due on due Goal Hepatitis C scre ening. 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 Due on due Goal Medication Recon ciliation. Due on due Goal Unhealthy drug u se screening. Due on due Goal ALT (SGPT). Due on due Goal CT-Colonography. Due on due Goal Zoster vaccine ( 1st). Due on due Goal Review Allergy L ist. Due on due Goal Lipid panel. Due on due Goal AST (SGOT). Due on due Goal Update Social Hi story. Due on due Goal Height. Due on d ue Goal OARS. Due on due Goal ADMINISTRATIVE COURT JUSTICE Scanned. Due on due Goal FIT-DNA. Due on due Goal Order Annual PT. Due on due Goal Weight. Due on d ue Goal Tobacco Use. Due on due Goal UDT. Due on due Goal Creatinine. Due on due Goal Weight. Due on d ue Goal ADMINISTRATIVE COURT JUSTICE Scanned. 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 Due on due Goal FIT. Due on due Goal PHQ-9. Due on du e Goal Hepatitis C scre ening. Due on due Goal CT-Colonography. Due on due Goal AST (SGOT). Due on due Goal Review Allergy L ist. Due on due Goal UDT. Due on due Goal ALT (SGPT). Due on due Goal Medication Recon ciliation. Due on due Goal Lipid panel. Due on due Goal Tobacco Use. Due on due Goal FIT-DNA. Due on due Goal Creatinine. Due on due Goal Height. Due on d ue Goal Order Annual PT. Due on due Goal Unhealthy drug u se screening. Due on due Goal Update Social Hi story. Due on due Goal OARS. Due on due Goal Zoster vaccine ( ). 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 Due on due Goal Zoster vaccine ( ). Due on due Goal Medication Recon ciliation. Due on due Goal Tobacco Use. Due on due Goal AST (SGOT). Due on due Goal FIT. Due on due Goal ALT (SGPT). Due on due Goal ADMINISTRATIVE COURT JUSTICE Scanned. Due on due Goal Lipid panel. Due on due Goal Review Allergy L ist. Due on due Goal Height. Due on d ue Goal Update Social Hi story. Due on due Goal Order Annual PT. Due on due Goal FIT-DNA. Due on due Goal UDT. Due on due Goal CT-Colonography. Due on due Goal Hepatitis C scre ening. Due on due Goal PHQ-9. Due on du e Goal Unhealthy drug u se screening. Due on due Goal Weight. Due on d ue Goal OARS. Due on due Goal Creatinine. Due on due Goal Medication Recon ciliation. Due on due Goal OARS. Due on due Goal Weight. Due on d ue Goal Zoster vaccine ( 1st). Due on due Goal ALT (SGPT). Due on due Goal Order Annual PT. Due on due Goal CT-Colonography. Due on due Goal Unhealthy drug u se screening. Due on due Goal Review Allergy L ist. Due on due Goal Lipid panel. Due on due Goal Creatinine. Due on due Goal ADMINISTRATIVE COURT JUSTICE Scanned. Due on due Goal UDT. Due on due Goal PHQ-9. Due on du e Goal Update Social Hi story. Due on due Goal Tobacco Use. Due on due Goal FIT-DNA. Due on due Goal Height. Due on d ue Goal MARKETING [employer] SPECIALIST Paperwork. Due on due Goal Hepatitis C scre ening. Due on due Goal AST (SGOT). Due on due Goal FIT. Due on due Goal ALT (SGPT). Due on due Goal UDT. Due on due Goal OARS. Due on due Goal AST (SGOT). Due on due Goal Creatinine. Due on due Goal ADMINISTRATIVE COURT JUSTICE Scanned. Due on due Goal Order Annual PT. 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 Due on due Goal Unhealthy drug u se screening. Due on due Goal Zoster vaccine ( 1st). Due on due Goal Lipid panel. Due on due Goal PHQ-9. Due on du e Goal FIT. Due on due Goal Update Social Hi story. Due on due Goal Review Allergy L ist. Due on due Goal Tobacco Use. Due on due Goal Medication Recon ciliation. Due on due Goal Height. Due on d ue Goal FIT-DNA. Due on due Goal Weight. Due on d ue Goal CT-Colonography. Due on due Goal Hepatitis C scre ening. Due on due Goal Medication Recon ciliation. Due on due Goal UDT. Due on due Goal Tobacco Use. Due on due Goal Height. Due on d ue Goal AST (SGOT). Due on due Goal Order Annual PT. Due on due Goal OARS. Due on due Goal ADMINISTRATIVE COURT JUSTICE Scanned. Due on due Goal Review Allergy L ist. Due on due Goal PHQ-9. Due on du e Goal ALT (SGPT). 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 Due on due Goal Update Social Hi story. Due on due Goal Weight. Due on d ue Goal Order Annual PT. Due on due Goal AST (SGOT). Due on due Goal Update Social Hi story. Due on due Goal OARS. Due on due Goal ALT (SGPT). 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 Due on due Goal Review Allergy L ist. Due on due Goal Height. Due on d ue Goal PHQ-9. Due on du e Goal Medication Recon ciliation. Due on due Goal Weight. Due on d ue Goal Tobacco Use. Due on due Goal ADMINISTRATIVE COURT JUSTICE Scanned. Due on due Goal UDT. Due on due Goal ADMINISTRATIVE COURT JUSTICE Scanned. Due on due Goal Update Social Hi story. Due on due Goal ALT (SGPT). Due on due Goal Order Annual PT. 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 Due on due Goal Weight. Due on d ue Goal AST (SGOT). Due on due Goal OARS. Due on due Goal UDT. Due on due Goal Medication Recon ciliation. Due on due Goal Review Allergy L ist. Due on due Goal PHQ-9. Due on du e Goal Tobacco Use. Due on due Goal Height. Due on d ue Goal OARS. Due on due Goal Height. Due on d ue Goal Order Annual PT. Due on due Goal Update Social Hi story. Due on due Goal ADMINIST[address]ATIVE COURT JUSTICE Scanned. Due on due Goal Review Allergy L ist. Due on due Goal Tobacco Use. 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 Due on due Goal AST (SGOT). Due on due Goal UDT. Due on due Goal ALT (SGPT). Due on due Goal Weight. Due on d ue Goal PHQ-9. Due on du e Goal Medication Recon ciliation. Due on due Goal Medication Recon ciliation. Due on due Goal PHQ-9. Due on du e Goal Update Social Hi story. Due on due Goal Tobacco Use. Due on due Goal Review Allergy L ist. Due on due Goal Height. Due on d ue Goal Weight. Due on d ue Goal ADMINISTRATIVE COURT JUSTICE Scanned. 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 Due on due Goal Order Annual PT. Due on due Goal ALT (SGPT). Due on due Goal UDT. Due on due Goal OARS. Due on due Goal AST (SGOT). Due on due Goal OARS. Due on due Goal Medication Recon ciliation. Due on due Goal Tobacco Use. Due on due Goal Weight. Due on d ue Goal AST (SGOT). Due on due Goal Update Social Hi story. Due on due Goal UDT. Due on due Goal Review Allergy L ist. Due on due Goal ADMINISTRATIVE COURT JUSTICE Scanned. Due on due Goal ALT (SGPT). Due on due Goal Order Annual PT. Due on due Goal Height. Due on d ue Goal MARKETING PROGRAMS SPECIALIST Paperwork. Due on due Goal PHQ-9. Due on du e Goal OARS. Due on due Goal Update Social Hi story. Due on due Goal Height. Due on d ue Goal Order Annual PT. Due on due Goal Review Allergy L ist. Due on due Goal AST (SGOT). Due on due Goal ALT (SGPT). Due on due Goal Tobacco Use. Due on due Goal UDT. 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 Due on due Goal Weight. Due on d ue Goal Medication Recon ciliation. Due on due Goal PHQ-9. Due on du e Goal ADMINISTRATIVE COURT JUSTICE Scanned. Due on due Goal UDT. Due on due Goal AST (SGOT). Due on due Goal Height. Due on d ue Goal ALT (SGPT). 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 Due on due Goal Review Allergy L ist. Due on due Goal PHQ-9. Due on du e Goal Update Social Hi story. Due on due Goal Medication Recon ciliation. Due on due Goal OARS. Due on due Goal Weight. Due on d ue Goal Order Annual PT. Due on due Goal ADMINISTRATIVE COURT JUSTICE Scanned. Due on due Goal Tobacco Use. Due on due Goal UDT. Due on due Goal Weight. Due on d ue Goal Order Annual PT. Due on due Goal Update Social Hi story. Due on due Goal Review Allergy L ist. Due on due Goal OARS. Due on due Goal AST (SGOT). Due on due Goal Tobacco Use. 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 Due on due Goal ALT (SGPT). Due on due Goal ADMINISTRATIVE COURT JUSTICE Scanned. Due on due Goal PHQ-9. Due on du e Goal Height. Due on d ue Goal Medication Recon ciliation. Due on due Goal Height. Due on d ue Goal Tobacco Use. Due on due Goal Medication Recon ciliation. Due on due Goal Review Allergy L ist. Due on due Goal Update Social Hi story. Due on due Goal ADMINISTRATIVE COURT JUSTICE Scanned. Due on due Goal OARS. Due on due Goal ALT (SGPT). Due on due Goal AST (SGOT). 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 Due on due Goal UDT. Due on due Goal Order Annual PT. Due on due Goal Weight. Due on d ue Goal PHQ-9. Due on du e Goal Tobacco Use. Due on due Goal UDT. 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 Due on due Goal Height. Due on d ue Goal Medication Recon ciliation. Due on due Goal PHQ-9. Due on du e Goal OARS. Due on due Goal Update Social Hi story. Due on due Goal Review Allergy L ist. Due on due Goal ALT (SGPT). Due on due Goal Weight. Due on d ue Goal Order Annual PT. Due on due Goal ADMINISTRATIVE COURT JUSTICE Scanned. Due on due Goal AST (SGOT). Due on due Referral Ordered: [facility] (related to Bilateral primary osteoarthritis of knee) ordered Referral Referred To: [facility] [address] [place], [address] [phone] Ordered: Referrals: Family Medicine. [facility] ordered Referral Ordered: [facility] -Family Medicine (related to Bilateral primary osteoarthritis of knee) ordered Referral Referred To: [address], [address] [phone] Ordered: Referrals: Family Medicine. [facility] ordered Appointment Ana Hebert BOOKED Future Order: Radiology Order CT Lumbar WO ([id number]), Sent on: Sent Future Order: Radiology Order X- Ray Exam Of Hip Left (XHIPL), Ordered on: Ordered Future Order: Radiology Order X- Ray Exam Of Shoulder Right ([id number]), Ordered on: Ordered Future Order: Lab Order COMPLIAN CE DRUG ANALYSIS, URINE, WITH MED REPORT ([id number]), Ordered on: Ordered Future Order: Lab Order Drug Roslyn t Def 22+ Classes (G0483), Ordered on: Ordered Future Order: Lab Order COMPLIAN CE DRUG ANALYSIS, URINE, WITH MED REPORT ([id number]), Ordered on: Ordered Future Order: Lab Order Drug Roslyn t Def 22+ Classes (G0483), Ordered on: Ordered Future Order: Lab Order COMPLIAN CE DRUG ANALYSIS, URINE, WITH MED REPORT ([id number]), Ordered on: Ordered Future Order: Lab Order ALT (SGP T),SERUM ([id number]), Ordered on: Ordered Future Order: Lab Order AST (SGO T),SERUM ([id number]), Ordered on: Ordered Future Order: Lab Order CREATINI NE,SERUM ([id number]), Ordered on: Ordered History Of Present Illness Encounter Date Complaint History Of Prese nt Illness Widespread pain Severity level i s 4. Duration: chronic. Location of the pain is lower back, bilateral knee and left ankle. The problem is stable. Symptom is aggravated by overuse. Relieving factors include rest and Rx Meds. Pertinent negatives include diarrhea, fatigue, fever and incontinence (urinary). Comments: Ana presents virtually over [employer] for a follow up visit and medication refill for chronic widespread pain that is most bothersome in her low back and left ankle. States her pain has been stable since last OV but notes fluctuations with changes in weather. Low back pain has been stable since last OV. She has not yet completed her lumbar CT scan previously ordered but will plan to do so soon. She is aware of the SCS trial and may consider pursuing it in the future if pain worsens. Continues to have left ankle and knee pain however it is stable and of secondary concern today.Medication provides 80% pain relief and allows for increased functionality. Denies side effects from current medication regimen. Medications continue to provide pain relief and allow her to do everyday tasks. No other concerns today.Of note, increased level of distress due to her close friend being diagnosed with cancer. Recently returned from a cruise with her friend. Currently connected with [employer] which provides benefit. Also of note, she has noticed blood in her urine. She is scheduled for an abdominal CT scan and will plan to follow up with PCP sometime soon. Comments: Ana presents virtually over [employer] for a follow up visit and medication refill for chronic widespread pain that is most bothersome in her low back and left ankle. States her pain has been stable since last OV. Notes increased pain with current fluctuations in weather.Low back pain has been stable since last OV. She has not yet completed her lumbar CT scan previously ordered but will plan to do so soon. She is aware of the SCS trial and may consider pursuing it in the future if pain worsens. Continues to have left ankle pain however it is stable and of secondary concern today. Continues to decline reconstructive foot surgery offered by her digital imaging specialist and will try to rely on more conservative treatment options. Her knee pain tends to flare up when the weather is colder, although is overall stable.Medication provides 80% pain relief and allows for increased functionality. Denies side effects from current medication regimen. Medications continue to provide pain relief and allow her to do everyday tasks. No other concerns today.Of note, increased level of distress due to her close friend being diagnosed with cancer. She plans to go on a cruise with her friend and will return 12/22/23. Currently connected with [employer] which provides benefit. Reports she has been taking her Valium more often recently. She is aware of potential interaction with opioids and benzos and spaces her medications apart appropriately. Widespread pain Severity level i s 4. Duration: chronic. Location of the pain is left ankle. It occurs persistently. The problem is stable. Symptom is aggravated by overuse and daily activities. Relieving factors include rest and Rx Meds. Pertinent negatives include diarrhea, fatigue, fever and incontinence (urinary). Widespread pain Duration: chroni c. Location of the pain is lower back and left ankle. It occurs persistently. The problem is stable. Symptom is aggravated by overuse and daily activities. Relieving factors include rest and Rx Meds. Pertinent negatives include diarrhea, fatigue, fever and incontinence (urinary). Comments: Ana presents in clinic for a follow up visit and medication refill for chronic widespread pain that is most bothersome in her low back and left ankle. States her pain has been stable since last OV. Notes increased pain with current fluctuations in weather.Low back pain has been stable since last OV. She has not yet completed her lumbar CT scan previously ordered but will plan to do so soon. She is aware of the SCS trial and may consider pursuing it in the future if pain worsens. Continues to have left ankle pain however it is stable and of secondary concern today. Continues to decline reconstructive foot surgery offered by her digital imaging specialist and will try to rely on more conservative treatment options, although she notes today she may consider it in the next few months. Her knee pain tends to flare up when the weather is colder, although is overall stable.Medication provides moderate pain relief and allows for increased functionality. Denies side effects from current medication regimen. Medications continue to provide pain relief and allow her to do everyday tasks. No other concerns today.Of note, increased level of distress due to her close friend being diagnosed with cancer. Currently connected with [employer] which provides benefit. Reports she has been taking her Valium more often recently. She is aware of potential interaction with opioids and benzos and spaces her medications apart appropriately. Widespread pain Severity level i s 5. Duration: chronic. Location of the pain is lower back and left ankle. It occurs persistently. The problem is stable. Symptom is aggravated by overuse and daily activities. Relieving factors include rest and Rx Meds. Pertinent negatives include diarrhea, fatigue, fever and incontinence (urinary). Comments: Ana presents virtually via [facility] for a follow up visit and medication refill for chronic widespread pain that is most bothersome in her low back and left ankle. States her pain has been stable since last OV. She reports she has a sore throat today but it is manageable. Notes increased pain with current fluctuations in weather.Low back pain has been stable since last OV. She has not yet completed her lumbar CT scan previously ordered d/t . She is aware of the SCS trial and may consider pursuing it in the future if pain worsens. Her left ankle pain continues to persist but is stable this month. Continues to decline reconstructive foot surgery offered by her digital imaging specialist and will try to rely on more conservative treatment options. Her knee pain tends to flare up when the weather is colder, although is overall stable.Medication provides 80% pain relief and allows for increased functionality. Denies side effects from current medication regimen. Medications continue to provide pain relief and allow her to do everyday tasks. No other concerns today. Widespread pain Severity level i s 4. Duration: chronic. Location of the pain is lower back, bilateral knee and left ankle. It occurs persistently. The problem is stable. Symptom is aggravated by overuse and daily activities. Relieving factors include rest and Rx Meds. Pertinent negatives include diarrhea, fatigue, fever and incontinence (urinary). Comments: Ana presents virtually via [facility] for a follow up visit and medication refill for chronic widespread pain that is most bothersome in her low back and left ankle. States her pain has been stable since last OV. She had recently contracted another sinus infection. She will plan to follow up with PCP in hopes to get referred to an ENT sometime soon. Low back pain has been stable since last OV. She has not yet completed her lumbar CT scan ordered at last OV due to recurring sinus infections. She is aware of the SCS trial and may consider pursuing it in the future if pain worsens. Her left ankle pain continues to persist but is stable this month. Continues to decline reconstructive foot surgery offered by her digital imaging specialist and will try to rely on more conservative treatment options. Her knee pain tends to flare up when the weather is colder, but remains stable overall.Medication provides moderate pain relief and allows for increased functionality. Reports she was prescribed codeine for her cough by an outside provider. Denies side effects from current medication regimen. Medications continue to provide pain relief and allow her to do everyday tasks. No other concerns today. Comments: Ana presents in clinic for a follow up visit and medication refill for chronic widespread pain that is most bothersome in her low back and left ankle. States her pain has been stable since last OV. . Low back pain has been stable since last OV. She has not yet completed her lumbar CT scan ordered at last OV due to recent recurring sinus infections. She will plan to schedule a consult with an ENT if no improvements in symptoms are noted. She is aware of the SCS trial and may consider pursuing it in the future if pain worsens. Her left ankle pain continues to persist but is stable this month. Continues to decline reconstructive foot surgery offered by her digital imaging specialist and will try to rely on more conservative treatment options. Medication provides moderate pain relief and allows for increased functionality. Reports she was prescribed codeine for her cough by an outside provider. Inquires if she is able to try OTC cannabis for her pain. Denies side effects from current medication regimen. Medications continue to provide pain relief and allow her to do everyday tasks. No other concerns today. Widespread pain Duration: chroni c. Location of the pain is lower back and left ankle. It occurs persistently. The problem is stable. Symptom is aggravated by overuse and daily activities. Relieving factors include rest and Rx Meds. Pertinent negatives include diarrhea, fatigue, fever and incontinence (urinary). Widespread pain Severity level i s 4. Duration: chronic. Location of the pain is lower back and left ankle. It occurs persistently. The problem is stable. Pertinent negatives include diarrhea, fatigue, fever and incontinence (urinary). Comments: Ana presents virtually for a follow up visit and medication refill for chronic widespread pain that is most bothersome in her low back and ankles. States her pain has been stable since last OV. Low back pain has been stable since last OV. Denies the need for any procedural intervention at this time. She is aware of the SCS trial and may consider pursuing it in the future if pain worsens. Her left ankle pain continues to persist but is stable this month. Continues to decline reconstructive foot surgery offered by her digital imaging specialist and will try to rely on more conservative treatment options. Medication provides 80% pain relief and allows for increased functionality. Denies side effects from current medication regimen. Medications continue to provide pain relief and allow her to do everyday tasks. No other concerns today. Widespread pain Severity level i s 5. Duration: chronic. Location of the pain is lower back and bilateral ankle. It occurs persistently. The problem is stable. Symptom is aggravated by overuse and daily activities. Relieving factors include rest and Rx Meds. Pertinent negatives include diarrhea, fatigue, fever and incontinence (urinary). Comments: Ana presents virtually for a follow up visit and medication refill for chronic widespread pain that is most bothersome in her low back and ankles. States her pain has been stable since last OV. Continues to have low back pain with radicular symptoms. She is aware of the SCS trial but does not wish to pursue it at this time. Her left ankle pain continues to persist but is stable this month. She is connected with a digital imaging specialist who recommend reconstructive surgery, however she does not wish surgery at this time. No upcoming visits scheduled at this time. Medication provides 80% pain relief and allows for increased functionality. Reports with a surplus of medications today. Denies side effects from current medication regimen. Medications continue to provide pain relief and allow her to do everyday tasks. No other concerns today.Of note, she is planning to go on a cruise sometime in 01/2024. Comments: Ana presents virtually over the phone for a follow up visit and medication refill for chronic widespread pain that is most bothersome in her low back and ankles. States her pain has been stable since last OV. Continues to have low back pain with radicular symptoms. Remains interested in the SCS trial, but is concerned about having an implant. Would like to wait until Fall 2022 to complete the trial. Her left ankle pain continues to persist but is stable this month. Plans to follow up with podiatry eventually, although she does not want reconstructive surgery. No upcoming visits scheduled at this time. Medication provides 80% pain relief and allows for increased functionality. Reports with a surplus of medications today. Denies side effects from current medication regimen. No other concerns today. Widespread pain Severity level i s 5. Duration: chronic. Location of the pain is lower back and bilateral ankle. It occurs persistently. The problem is stable. Symptom is aggravated by overuse and daily activities. Relieving factors include rest and Rx Meds. Pertinent negatives include diarrhea, fatigue, fever and incontinence (urinary). Widespread pain Severity level i s 4. Duration: chronic. Location of the pain is lower back and bilateral ankle. The client describes it as achy and tingling. It occurs persistently. The problem is stable. Symptom is aggravated by bending, walking, housework, lifting, prolonged positioning and running. Relieving factors include standing, stretching, massage, heat, cold and Rx Meds. Comments: Ana presents for a follow up visit and medication refill. Patient c/o chronic widespread pain that is most bothersome in her low back and ankles, which has been stable. Currently wearing a mask and indicates that she is on antibiotics and Tylenol with codeine d/t bronchitis. Ongoing low back without radicular symptoms stable. Remains interested in the SCS trial, but is concerned about having an implant. Would like to wait until the fall to complete the trial, agreeable to having a CT, PT, and psych ordered next visit.Her left ankle pain continues to persist but is stable this month. Plans to follow up with podiatry this fall, does not want reconstructive surgery.Ringing in her ears continues to persist, worse at night. Continues to manage with use of Diazepam 0.5mg TID PRN, rx'd by PCP.Medication provides 80% relief and allows for increased functionality per patient intake, is looking to find a job. Denies side effects from current medication regimen. No other concerns today.Of note, patient will be going on a cruise next January. Widespread pain Severity level i s 4. Duration: chronic. Location of the pain is lower back and left ankle. It occurs persistently. The problem is stable. Comments: Ana presents for a virtual follow up and medication refill. Patient c/o chronic widespread pain that is most bothersome in her low back. Denies radicular symptoms. Pain has been stable since last visit. Notes she has been recovering from a sinus infection. Rx'd a cough syrup with benefit. She remains hesitant in pursuing lumbar SCS trial. States she would like to hold off on completing a lumbar CT at this time. Her left ankle pain continues to persist but is stable this month. She does not have a scheduled surgery date at this time. She would like to wait until she sees how her daughter's friend recovers from the same reconstructive surgery. Ringing in her ears continues to persist, worse at night. Continues to manage with use of Diazepam 0.5mg TID PRN, rx'd by PCP.Medication provides 80% relief and allows for increased functionality per patient intake, such as spending time with her grandchildren and visiting her son in [place]. Denies side effects from current medication regimen. No other concerns today.Of note, due to complications with LORA, visit was conducted via phone from 12:59pm - 1:05pm. Widespread pain Severity level i s 4. Duration: chronic. Location of the pain is lower back, left hip, right knee and left ankle. It occurs persistently. The problem is stable. Comments: Ana presents for a virtual follow up and medication refill. Patient c/o chronic widespread pain that is most bothersome in her low back. Denies radicular symptoms. Pain has been stable since last visit. She remains interested in pursuing lumbar SCS trial. States she would like to complete this Fall 2022. She requests CT as she is severely claustrophobic and would need to be sedated.Her left ankle pain continues to persist but is stable this month. Continues to hold off on surgery at this time. States the ringing in her ears continues to persist, worse at night. Continues to manage with use of Diazepam 0.5mg TID PRN, rx'd by PCP.Medication provides 80% relief and allows for increased functionality per patient intake, such as spending time with her grandchildren. Denies side effects from current medication regimen. No other concerns today. Widespread pain Duration: chroni c. Location of the pain is lower back, bilateral knee and left ankle. The client describes it as achy and Tingling. Symptom is aggravated by bending, Housework, lifting and prolonged positioning. Relieving factors include stretching, massage, heat, cold, Rx Meds and Changing positions. Comments: Ana is a 72 y/o female who presents for follow up and medication refill in the setting of chronic widespread pain, most prominent in the low back, R knee, L ankle, and L foot. Pain has been stable this month. Denies any new symptoms or changes. Continues to complain of L ankle pain. Notes she is trying to hold off on surgery for as long as possible. She is also trying to hold off on knee surgery, noting she has been able to manage her pain.The ringing in her ears continue to persists, worse at night. Has been using Diazepam #0.5tab TID PRN prescribed by her PCP for the ongoing issue and increased anxiety. Reports current medication regimen provides 80% pain relief and allows for increased functionality such as spending time with her grandchildren. Continues to utilize Grygla 10-325mg with significant benefit. Denies side effects from current medication regimen. No other concerns today. Comments: Ana is a 72 y/o female who presents via [employer] for virtual follow up and medication refill in the setting of chronic widespread pain, most prominent in the low back, R knee, L ankle, and L foot. Pain has been stable this month. Denies any new symptoms or changes. Continues to complain of L ankle pain. Notes she is not ready to pursue surgery at this time and is trying her best to "live with the pain. As her daughter will be proceeding with a back surgery in the near future, she will need to put the L ankle surgery on further hold as she will be taking care of her grandchildren while her daughter recovers.The ringing in her ears continue to persists, worse at night. Has been using Diazepam #0.5tab TID PRN prescribed by her PCP for the ongoing issue and increased anxiety. Of note, patient believes she may have a sinus infection. Notes she has been experiencing extreme congestion. She states she does not want to follow up with a doctor at this time as she finds it difficult to make an appointment. Reports current medication regimen provides 80% pain relief and allows for increased functionality such as spending time with her grandchildren. Continues to utilize Grygla 10-325mg with significant benefit. Endorses constipation d/t IBS. Denies other side effects from current medication regimen. No other concerns today. Widespread pain Severity level i s 5. Duration: chronic. Location of the pain is lower back, right knee, left ankle and left foot. It occurs persistently. The problem is stable. Relieving factors include Rx Meds. Pertinent negatives include diarrhea, fatigue, fever and incontinence (urinary). Widespread pain Severity level i s 5. Duration: chronic. Location of the pain is lower back, right knee and left ankle. It occurs persistently. The problem is stable. Pertinent negatives include diarrhea, fatigue, fever and incontinence (urinary). Comments: Ana presents for a virtual follow up and medication refill. Patient c/o chronic widespread pain that is most bothersome in her low back. Denies radicular symptoms. Pain has been stable since last visit. Her left ankle pain continues to persist but is stable this month. She does not plan to pursue surgery at this time. States that her daughter will be completing back surgery sometime in the near future and that Ana will help take care of her grandchildren while her daughter recovers. Her right knee and left hip pain have been stable. Denies the need to pursue interventions at this time. States the ringing in her ears continues to persist, worse at night. Continues to manage with use of Diazepam 0.5mg TID PRN, rx'd by PCP. She will f/u for a routine physical soon and will be asking for a referral to ENT for further evaluation. Medication provides 80% relief and allows for increased functionality per patient intake, such as settling into her new home and spending time with her grandchildren. Inquires about rx of muscle relaxant, such as Cyclobenzaprine. Reports benefit with Cyclobenzaprine but it was d/c due to lack of insurance coverage. Denies side effects from current medication regimen. No other concerns today. Comments: Ana presents for a follow up and medication refill. Patient c/o chronic widespread pain that is most bothersome in her low back. Denies radicular symptoms. Pain has been stable since last visit. Her left ankle pain continues to persist and has progressively worsened. She has not planned to pursue surgery at this time as her daughter will need back surgery. States she will need to assist her and take care of her grandchildren. Notes she is unsure if she wants to pursue reconstructive surgery d/t the risks, but plans to discuss with Dr. Recio. Her right knee and left hip pain have been stable. She repositions frequently. States weight loss has slowly improved her pain. Reports tingling in her digits that occurs intermittently. Denies aggravating factors such as certain positions or activity.States the ringing in her ears continues to persist, worse at night. Continues to manage with use of Diazepam 0.5mg PRN, up to TID. Medication provides 80-85% relief and allows for increased functionality per patient intake, such as settling into her new home and spending time with her grandchildren. Denies side effects from current medication regimen. No other concerns today. Widespread pain Severity level i s 7. Duration: chronic. Location of the pain is lower back, right knee and left ankle. It occurs persistently. The problem is stable. Symptom is aggravated by bending, walking upstairs, walking downstairs, running, sitting, standing and walking. Relieving factors include supine, massage, rest, heat, cold and Rx Meds. Pertinent negatives include diarrhea, fatigue, fever and incontinence (urinary). Widespread pain Severity level i s 5. Duration: chronic. Location of the pain is lower back and left ankle. It occurs persistently. The problem is stable. Pertinent negatives include diarrhea, fatigue, fever and incontinence (urinary). Comments: Ana presents for a virtual follow up and medication refill. Patient c/o chronic widespread pain that is most bothersome in her low back. Pain has been stable since last visit. Her left ankle pain continues to persist and has progressively worsened. She plans to schedule her surgery as soon as she is able once she has f/u with her surgeon - not yet scheduled. Notes increased right knee pain. She plans to hold off on interventions at this time. Her left hip pain has been stable. States the ringing in her ears continues to persist, worse at night. She continues to manage with use of Diazepam 0.5mg PRN, up to TID. Medication provides 80% relief and allows for increased functionality per patient intake, such as settling into her new home and spending time with her grandkids. Denies side effects from current medication regimen. No other concerns today. Comments: Ana presents for a virtual follow up and medication refill. Patient c/o chronic widespread pain that is most bothersome in her low back. Denies radicular symptoms. Pain has been stable since last visit. Notes she has not been feeling well after receiving her Pfizer COVID vaccine on 09/02/2022 and recovering from bronchitis. Her left ankle pain continues to persist and has progressively worsened. States she will no longer be taking care of her friend who is completing lumbar surgery. She plans to pursue surgery 10/2022. Reports ongoing trigger finger of her 3rd digit. She f/u with [facility] on 08/05/2022 to discuss interventions. She completed steroid injections, but states she had difficulty breathing following. States the ringing in her ears continues to persist, worse at night. She continues to manage with use of Diazepam 0.5mg PRN, up to TID. Medication provides 80% relief and allows for increased functionality per patient intake, such as settling into her new home and spending time with her grandkids. Denies side effects from current medication regimen. No other concerns today.Of note, she will be traveling to [place] to visit her new grandchild. Widespread pain Severity level i s 4. Duration: chronic. Location of the pain is lower back, right knee and left ankle. It occurs persistently. The problem is stable. Comments: Ana presents for a virtual follow up and medication refill. Patient c/o chronic widespread pain that is most bothersome in her low back. Denies radicular symptoms. Pain has been stable since last visit. Notes increased pain d/t the colder weather.Her left ankle pain continues to persist and has progressively worsened. She will pursue surgery 10/2022 after her friend completes lumbar surgery at the end of 08/2022. Reports ongoing trigger finger of her 3rd digit. She will f/u with [facility] following today's visit to discuss interventions. Notes that she has been experiencing ringing in her ears. She f/u and was told that she has fluid present. She was rx'd cough syrup with Codeine and has been increasing her use of Diazepam to help with anxiety at night. Medication provides 80% relief and allows for increased functionality per patient intake, such as settling into her new home and spending time with her grandkids. States the pharmacy was only able to fill #140 of her Grygla 10-325mg. Denies side effects from current medication regimen. No other concerns today. Widespread pain Severity level i s 5. Duration: chronic. Location of the pain is lower back, mid back and left ankle. It occurs persistently. The problem is stable. Comments: Ana presents for a follow up and medication refill. Patient c/o chronic widespread pain that is most bothersome in her low back. Pain has been stable since last visit. Reports increased tightness and pain in her mid-back. Inquires about pursuing TPIs. Her left ankle pain continues to persist and has progressively worsened. Her friend has her lumbar surgery around the end of 07/2022. She plans to pursue surgery around the beginning of 2022 as her daughter is having a baby. Notes she also will f/u with orthopedics regarding her right ankle. Reports ongoing trigger finger of her 3rd digit. She will f/u with [facility] on 07/07/2022 for interventions. Medication provides moderate relief and allows for increased functionality per patient intake, such as settling into her new home and spending time with her grandkids. Denies side effects from current medication regimen. No other concerns today. Widespread pain Severity level i s 7. Duration: chronic. Location of the pain is lower back, mid back, left hand and left ankle. The client describes it as burning and tingling. It occurs persistently. The problem is stable. Symptom is aggravated by bending, walking upstairs, walking downstairs, sitting, standing, walking, housework, lifting and prolonged positions. Relieving factors include stretching, massage, cold, Rx Meds and changing positions. Pertinent negatives include diarrhea, fatigue, fever and incontinence (urinary). Widespread pain Severity level i s 5. Duration: chronic. Location of the pain is lower back, left hip, right knee and left ankle. It occurs persistently. The problem is stable. Comments: Ana presents for a virtual follow up and medication refill. Patient c/o chronic widespread pain that is most bothersome in her low back. Pain has been stable since last visit. Her left ankle pain continues to persist and has progressively worsened. She is still waiting on her friend to schedule her lumbar surgery before she is able to pursue surgery as she will be assisting with her care.Medication provides 80% relief and allows for increased functionality per patient intake, such as settling into her new home. Denies side effects from current medication regimen. No other concerns today. Comments: Ana presents for a virtual follow up and medication refill. Patient c/o chronic widespread pain. Pain has been stable since last visit. Her left ankle pain continues to persist. Notes numbness and tingling intermittently. She has not f/u with orthopedics. Her friend has not scheduled her lumbar fusion at this time, so she is unsure of the timeline in which she would be able to pursue. Her low back has been stable. Reports increased pain with activity, such as lpc. Medication provides 80% relief and allows for increased functionality. Denies side effects from current medication regimen. No other concerns today.Of note, she will be traveling to [place] on 05/29/2022. Widespread pain Severity level i s 5. Duration: chronic. Location of the pain is lower back, bilateral knee and left ankle. The client describes it as achy, tingling and numb. It occurs persistently. The problem is stable. Symptom is aggravated by bending, housework, lifting and prolonged positioning. Relieving factors include stretching, massage, cold and Rx Meds. Pertinent negatives include diarrhea, fatigue, fever and incontinence (urinary). Comments: Ana presents for a virtual follow up and medication refill. Patient c/o chronic widespread pain. Pain has been stable since last visit. Her left ankle pain continues to persist. Endorses swelling. States her friend is having lumbar surgery and will need assistance in 05/2022. She plans to pursue reconstructive surgery with Dr. Recio later in the Fall. Her ankle is the primary concern today. Her low back and left hip pain remains stable. Notes her right shoulder pain has been stable. She is unable to pursue PT at this time d/t financial constraints. Reports improving stress this week as it has been one year that she began the divorce process with her . Continues regular care with psych. Medication provides 80% relief and allows for increased functionality. She was able to tolerate the decrease in Grygla 10-325mg this month. Denies side effects from current medication regimen. No other concerns today. Widespread pain Severity level i s 5. Duration: chronic. Location of the pain is lower back and bilateral ankle. The client describes it as achy and burning. It occurs persistently. The problem is stable. Symptom is aggravated by prolonged positioning and housework. Relieving factors include massage, rest, cold and Rx Meds. Pertinent negatives include diarrhea, fatigue, fever and incontinence (urinary). Widespread pain Severity level i s 5. Duration: chronic. Location of the pain is lower back, left knee and left ankle. The client describes it as achy and burning. It occurs intermittently. The problem is stable. Symptom is aggravated by bending, standing, housework, lifting, prolonged positions and twisting. Relieving factors include heat and cold. Pertinent negatives include diarrhea, fatigue, fever and incontinence (urinary). Comments: Ana presents for a virtual follow up and medication refill. Patient c/o chronic widespread pain. Pain has been stable since last visit. Her low back and left hip pain remains stable. Notes continued weight loss has been beneficial, but she is still unable to lay on her left side. Notes her right shoulder pain has been stable. She is unable to pursue PT at this time d/t financial constraints. Her left ankle pain continues to persist. States her friend is having lumbar surgery and will need assistance in 05/2022. She plans to pursue reconstructive surgery with Dr. Recio later in the Fall. Reports increased stress this week as it has been one year that she began the divorce process with her . Continues regular care with psych. Medication provides 80% relief and allows for increased functionality. She was able to tolerate the decrease in Grygla 10-325mg this month. Denies side effects from current medication regimen. No other concerns today. Widespread pain Severity level i s moderate. Duration: chronic. Location of the pain is lower back, left shoulder, left knee and left foot/ankle. The client describes it as burning. It occurs persistently. The problem is worsening. Pertinent negatives include diarrhea, fatigue, fever and incontinence (urinary). Comments: Ana presents for follow up and medications refill. Continues the process of divorce, patient reports her has not been doing his side of the divorce, which has been causing significantly increased stress and thus overall increased pain. Continues to see her psychologist on a weekly basis. She and her daughter bought a house so she is now living with her. Needs to have reconstructive left ankle surgery by Dr. Recio, plants to have this in the next few months.Medication provides 80% relief and allows for increased functionality. Denies side effects from current medication regimen. Patient remains interested in slowly weaning down/off Grygla; would like to decrease quantity by #30 tabs for the month. No other concerns today. Comments: Ana presents for a virtual follow up and medication refill. Patient c/o chronic widespread pain that is most bothersome in her low back, right shoulder, left hip, left knee, and left ankle. Pain has been stable since last visit. Knee and ankle pain continues to be most bothersome this month. She is anticipating a complete reconstructive surgery due to L ankle pain. Will continue to f/u with Dr. Recio.Notes increased anxiety and depression because she is going through a divorce. Continues to see her therapist/psych with benefit. She has good support from her daughter and reports her dog, Remy, helps her mood.Medication provides 80% relief and allows for increased functionality. Denies side effects from current medication regimen. Pt would like to slowly wean down/off Grygla. No other concerns today. Widespread pain Severity level i s 5. Duration: chronic. Location of the pain is lower back, bilateral knee and ankle. The client describes it as sharp, achy and numbness. It occurs persistently. The problem is worsening. Symptom is aggravated by bending, walking upstairs, walking downstairs, sitting, standing, walking and housework. Relieving factors include stretching, massage, rest, heat, cold, Rx Meds and changing positions. Pertinent negatives include diarrhea, fatigue, fever and incontinence (urinary). Widespread pain Duration: chroni c. Location of the pain is lower back, left hip and left knee. The patient describes it as achy, burning and numb. Symptom is aggravated by bending, walking upstairs, walking downstairs, sitting, standing, housework, prolonged positioning and twisting. Relieving factors include stretching, massage, rest, heat, cold and Rx Meds. Widespread pain (comments) Edenilson brannon presents for a virtual follow up and medication refill. Patient c/o chronic widespread pain that is most bothersome in her low back, right shoulder, left hip, left knee, and left ankle. Pain has been stable since last visit. Her left hip pain continues to persist, but improving as she has lost some weight. Notes the Mckeon's Cyst is not as prevalent. Denies the need for interventions at this time. States that her left ankle pain has been more bothersome. She plans to f/u with Dr. Recio to complete reconstructive surgery. Continues to f/u with psych weekly and use of #0.5 tabs Diazepam TID. Medication provides 80% relief and allows for increased functionality. Denies side effects from current medication regimen. No other concerns today. Widespread pain (comments) Edenilson brannon presents for a virtual follow up and medication refill. Patient c/o chronic widespread pain. Pain has been worse since last visit. Describes the pain as burning, sharp, and tingling.Her left hip pain continues to persist, though is not as bad. States she would like to hold off on interventions until she is able to obtain a new insurance. Plans to continue PT once she is able as she was exposed to COVID. Continues to f/u with psych weekly. She was rx'd Diazepam and takes 0.5 tabs up to #3/day. Medication provides 80% relief and allows for increased functionality. Denies side effects from current medication regimen. No other concerns today. Of note, she will be switching insurance companies within the next month, but she will continue to have access to Medicare. She is also in the process of moving to a new house. Widespread pain Severity level i s 4. Duration: chronic. Location of the pain is lower back, left hip, left knee and left ankle. The patient describes it as sharp, burning and tingling. It occurs intermittently. The problem is worsening. Symptom is aggravated by bending, standing, lifting, housework and prolonged positions. Relieving factors include heat and cold. Widespread pain (comments) Edenilson brannon presents for a virtual follow up and medication refill. Patient c/o chronic widespread pain. Pain has been worse since last visit, but notes her pain has decreased to a 4 /10. Describes the pain as aching, tingling, and numb.Her left foot and ankle pain continues to persist. States she will most likely need surgery.Notes increased pain in her left hip and LLE. Reports intermittent pain in her back as well, but believes it could be a pinched nerve. Medication provides 80% relief and allows for increased functionality. Denies side effects from current medication regimen. No other concerns today. Of note, she was able to sell her house and is looking at building a house with her daughter. She is also working to change her insurance. Widespread pain Duration: chroni c. Location of the pain is lower back, left hip, left knee and left ankle. The patient describes it as achy, tingling and numb. It occurs persistently. The problem is worsening. Symptom is aggravated by bending, walking upstairs, walking downstairs, standing, walking, housework, lifting and prolonged positions. Relieving factors include supine, massage, heat, cold and Rx Meds. Pertinent negatives include diarrhea, fatigue, fever and incontinence (urinary). Widespread pain (comments) Edenilson brannon presents for a virtual follow up and medication refill. Patient c/o chronic widespread pain that is most bothersome in her left ankle. Pain has been stable since last visit. Her left foot pain continues to persist. Notes numbness intermittently. States her bilateral hip pain has been stable. Reports her right shoulder pain has been stable. Medication provides moderate relief and allows for increased functionality. Notes increased stress r/t her divorce this month. Reports her pain levels decreases from an 8 / 9 to a 4 with use of her medications. Denies side effects from current medication regimen. No other concerns today. Widespread pain Severity level i s 7. Duration: chronic. It occurs persistently. The problem is stable. Pertinent negatives include diarrhea, fatigue, fever and incontinence (urinary). Widespread pain Severity level i s 5. Duration: chronic. The patient describes it as achy, burning and numbness. It occurs persistently. The problem is worsening. Symptom is aggravated by walking upstairs, walking downstairs, running, sitting, standing, walking and housework. Relieving factors include stretching, massage, cold and Rx Meds. Pertinent negatives include diarrhea, fatigue, fever and incontinence (urinary). Widespread pain (comments) Edenilson brannon presents for a virtual follow up and medication refill. Patient c/o chronic widespread pain that is most bothersome in her left ankle. Pain has been worse since last visit. Notes that her increased stress r/t her divorce has made her pain more bothersome. Describes the pain as aching, burning, and numb.Her left foot pain continues to persist. Notes numbness in her left foot intermittently. She has been wearing her brace, but reports that it causes her ankle to be sore as it rubs on her skin. She will be f/u with orthopedics as she believes the orthotic is too small.Her bilateral hip pain has been fluctuating. She plans to schedule her bursa injection after she is able to finalize her medical insurance after her divorce. Reports that her right shoulder pain has been stable this month. Medication provides 80% relief and allows for increased functionality. Continues walking and engaging in a HEP. Denies side effects from current medication regimen. No other concerns today.Of note, she inquires about going to the [facility] in [place] as the location is closer to her home. Widespread pain Severity level i s 5. Duration: chronic. Location of the pain is lower back, left knee and left ankle. The patient describes it as achy and burning. It occurs persistently. The problem is worsening. Symptom is aggravated by bending, walking upstairs, walking downstairs, standing, walking, housework and lifting. Relieving factors include stretching, massage, rest, cold and Rx Meds. Pertinent negatives include diarrhea, fatigue, fever and incontinence (urinary). Widespread pain (comments) Edenilson brannon presents for a follow up and medications refill. Patient c/o chronic widespread pain that is most bothersome in her left ankle. Pain has been worse since last visit. Describes the pain as aching and burning.Notes she had fallen and had reinjured her left ankle. States she had f/u with ortho and was told to wear a brace. Her bilateral hip pain has been stable.Medication provides 80% relief and allows for increased functionality. Denies side effects from current medication regimen. No other concerns today. Widespread pain Severity level i s 5. Duration: chronic. Location of the pain is lower back and left hip. The patient describes it as achy, burning and numbness. It occurs persistently. The problem is worsening. Symptom is aggravated by bending, lifting, housework and stairs. Relieving factors include massage, heat, cold and Rx Meds. Pertinent negatives include diarrhea, fatigue, fever and incontinence (urinary). Widespread pain (comments) Edenilson brannon presents for a virtual follow up and medications refill. She reports her widespread pain has been stable overall. Pain is most bothersome in her left ankle. She followed up with Dr. Recio, who recommended she start wearing a left foot brace. She has an appointment next week to see if her ankle has improved. If it has not improved she will need surgery on the foot.States that the hip pain has been stable since losing weight. She cancelled the hip injection due to expense.She continues to struggle mentally due to ongoing divorce. States her anxiety is manageable during the day and gets worse at night. She is following with a therapist weekly and started taking Lorazepam and Wellbutrin. 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 Denies side effects from current medication regimen. No other concerns today. Widespread pain Severity level i s 5. Duration: chronic. The patient describes it as achy, burning and numbness. It occurs intermittently. The problem is worsening. Symptom is aggravated by bending, walking upstairs, walking downstairs, walking, lifting and prolonged positioning. Relieving factors include heat and cold. Pertinent negatives include diarrhea, fatigue, fever and incontinence (urinary). Widespread pain (comments) Edenilson brannon presents for a virtual follow up and medications refill. She reports her widespread pain has been worse overall. Pain is most bothersome in her left ankle. She followed up with Dr. Recio, who recommended she start wearing a boot. Indicates today that she has a fracture in the ankle and may be required to have surgery. She reports her daughter and granddaughter have COVID-19 and are living with her at this time, which is adding to her stress. Reports current medication regimen provides 50+% pain relief and allows for increased functionality. Denies side effects from current medication regimen.No other concerns today. Widespread pain Severity level i s 5. Duration: chronic. Location of the pain is upper back, left hip, left ankle, left mid foot and left forefoot. The patient describes it as achy, burning and numbness. It occurs persistently. The problem is worsening. Symptom is aggravated by bending, walking upstairs, walking downstairs, walking, housework and lifting. Relieving factors include supine, massage, rest, heat, cold and Rx Meds. Pertinent negatives include diarrhea, fatigue, fever and incontinence (urinary). Widespread pain (comments) Edenilson brannon presents for a virtual follow up and medications refill. She reports her widespread pain has been worse. She went to Dr. Johnson to conduct an x-ray of her left foot. Her most bothersome areas continue to be her low back, left hip, and left ankle/foot. She requests to hold off on procedures d/t personal life problems. Reports current medication regimen provides 80+% pain relief and allows for increased functionality. Denies side effects from current medication regimen. No other concerns today.Of note, she is going through a divorce from her of 25 years and has been prescribed valium 5mg prn from her PCP for anxiety. She understands the increased risk of combining benzodiazepines and opioids; she takes valium at least 2 hours after taking Grygla. She is undergoing therapy which is not covered by insurance but she sees her therapist once a week. She describes that her is restarting a relationship with his ex-girlfriend with whom he has a child. Ana's child is moving in with her. She reports that she is smoking d/t the increased stress and is visibly upset during the visit. Widespread pain (comments) Edenilson brannon presents for a virtual follow up and medications refill. She reports her widespread pain has been worse. Pain has been increased due to traveling to [place] for a . Notes her pain remains most bothersome in her left hip. She is interested in pursuing the GT bursa injection ordered previously but requests updating imaging first as the pain is more deep and radiating into her groin. Describes her pain as aching and burning with occasional numbness.Reports current medication regimen provides 80+% pain relief and allows for increased functionality. Denies side effects from current medication regimen.No other concerns today. Widespread pain Severity level i s 5. Duration: chronic. Location of the pain is lower back. The patient describes it as achy, burning and numbness. It occurs intermittently. The problem is worsening. Symptom is aggravated by bending, walking upstairs, walking downstairs, running, standing, lifting, prolonged positioning and twisting. Relieving factors include supine, massage, rest, cold and Rx Meds. Pertinent negatives include diarrhea, fatigue, fever and incontinence (urinary). Widespread pain Duration: chroni c. Location of the pain is lower back, bilateral knee and left ankle. The patient describes it as achy, burning and numbness. It occurs persistently. The problem is worsening. Symptom is aggravated by bending, walking upstairs, walking downstairs, running, sitting, standing, walking, housework and lifting. Relieving factors include massage, rest, heat, cold and Rx Meds. Pertinent negatives include diarrhea, fatigue, fever and incontinence (urinary). Widespread pain (comments) Edenilson brannon presents for a virtual follow up and medications refill. She reports her widespread pain has been worse overall. Notes of increased BL knee pain. She states she will need to have surgery at some point in the future. Left ankle pain has also been increased, and she states that she plans to follow up with her digital imaging specialist Dr. Recio.Patient complains of new right shoulder pain that has been particularly bothersome. Has not completed imaging.Reports current medication regimen provides 80+% pain relief and allows for increased functionality. Denies side effects from current medication regimen.No other concerns today. Widespread pain Severity level i s 5. Duration: chronic. Location of the pain is lower back and bilateral knee. The patient describes it as achy, burning and numbness. It occurs intermittently. The problem is stable. Symptom is aggravated by bending, walking upstairs, walking downstairs, standing and lifting. Relieving factors include cold and changing positions. Pertinent negatives include diarrhea, fatigue, fever and incontinence (urinary). Widespread pain (comments) Edenilson brannon presents for a virtual follow up and medications refill. She reports her widespread pain has been stable. Pain remains most bothersome in her left hip. Her left hip bursa injection was cancelled due to a previous reaction to steroids. Still interested in pursuing and has been trying to release past records from [facility]; she has filled out a KATHY twice. Indicates that she had difficulty breathing and flushing after a cervical DALE in the s, but had subsequent steroid injections (thumb & knee) without difficulty. Reports current medication regimen provides 80+% pain relief and allows for increased functionality. Denies side effects from current medication regimen.No other concerns today. Widespread pain Severity level i s 4. Duration: chronic. Location of the pain is lower back, left hip, left knee and left ankle. The patient describes it as sharp, achy and burning. It occurs persistently. The problem is worsening. Symptom is aggravated by bending, walking upstairs, walking downstairs, running, standing, walking, supine, prolonged positioning and lifting. Relieving factors include stretching, rest, cold, Rx Meds and changing positions. Pertinent negatives include diarrhea, fatigue, fever and incontinence (urinary). Widespread pain (comments) Edeinlson brannon presents for a virtual follow up and medications refill. She reports her widespread pain has been worse. Notes of some increased pain in her left hip this month. Located on the outside of her hip and is painful to touch. Continues to follow up with ortho regarding her left knee pain. States her bursa sac is increasing, and she will need a replacement at some point in the future.Reports current medication regimen provides 80+% pain relief and allows for increased functionality. Notes she just returned from a 10-day trip to [place]. Denies side effects from current medication regimen.No other concerns today. Widespread pain Severity level i s 5. Duration: chronic. Location of the pain is lower back. The patient describes it as achy, burning and tingling. It occurs persistently. The problem is worsening. Symptom is aggravated by bending, walking upstairs, walking downstairs, running, sitting, standing, housework, lifting and. Denies relieving factors. Pertinent negatives include diarrhea, fatigue, fever and incontinence (urinary). Widespread pain (comments) Edenilson brannon presents for a virtual follow up and medications refill. She reports her widespread pain has been worse this month. Pain is most bothersome in her low back, left knee, and left ankle today. Continues to wear custom orthotics, which help some with her left ankle and hip pain. Is planning on scheduling a F/U visit with Dr. Johnson. Ongoing left knee pain persists, indicating that she will "eventually need surgery. Would like to hold off until the pandemic cases minimize. Reports current medication regimen provides 80+% pain relief and allows for increased functionality. Continues to stay active helping her daughter and granddaughter. Denies side effects from current medication regimen- no itching with hydrocodone, which she reported previously with Percocet. No other concerns today. Widespread pain Severity level i s 5. Duration: chronic. Location of the pain is lower back, left knee and left ankle. The patient describes it as achy, tingling and numbness. It occurs intermittently. The problem is stable. Symptom is aggravated by bending, walking upstairs, walking downstairs, running, standing, walking, twisting, lifting and prolonged positioning. Relieving factors include supine, heat, cold, Rx Meds and changing positions. Widespread pain (comments) Edenilson brannon presents for a virtual follow up and medications refill. She reports her widespread pain has been stable this month. Pain is most bothersome in her low back, left knee, and left ankle today.Is continuing to work with Dr. Recio at [facility] for her left ankle pain- now has custom orthotics which help some when she wears them. Reports current medication regimen provides 80+% pain relief and allows for increased functionality. Continues to stay active helping her granddaughter with school. Denies side effects from current medication regimen- no itching with hydrocodone, which she reported previously with Percocet. No other concerns today. Widespread pain Severity level i s 8. Duration: chronic. Location of the pain is lower back, left knee and left ankle. The patient describes it as sharp, achy, burning and numbness. It occurs intermittently. The problem is worsening. Symptom is aggravated by bending, walking upstairs, walking downstairs, running, standing, lifting and twisting. Relieving factors include supine, walking, massage, rest, heat, cold and Rx Meds. Widespread pain (comments) Edenilson brannon presents for a virtual follow up and medications refill. She reports her widespread pain has been worse. Pain is most bothersome in her left ankle. Scheduled to follow up with Dr. Recio at [facility] next Tuesday to machine operator hop picker her custom orthotic. States her ankle pain wakes her up at night and describes it as stabbing and hot.Reports current medication regimen provides 80+% pain relief and allows for increased functionality. Denies side effects from current medication regimen.No other concerns today. Widespread pain Severity level i s 6. Duration: chronic. Location of the pain is lower back, left knee and left ankle. The patient describes it as achy, tingling and numbness. It occurs intermittently. The problem is worsening. Relieving factors include massage, rest, heat, cold and Rx Meds. Pertinent negatives include diarrhea, fatigue, fever and incontinence (urinary). Widespread pain (comments) [place] presents for a virtual follow up and medications refill. She reports her widespread pain has been worse this month. Pain has been most bothersome in her left foot and knee. Consulted Dr. Recio through [facility] who recommended an orthotic. Additional low back pain has been stable this month.Reports current medication regimen provides 50+% pain relief and allows for increased functionality when helping her granddaughter with school once per week. Denies side effects from current medication regimen.No other concerns today. Widespread pain Severity level i s 5. Duration: chronic. Location of the pain is lower back, left knee and left ankle. The patient describes it as achy, burning and numbness. It occurs intermittently. The problem is worsening. Symptom is aggravated by bending, walking upstairs, walking downstairs, running, sitting, standing, walking, supine and housework. Relieving factors include heat, cold and Rx Meds. Pertinent negatives include diarrhea, fatigue, fever and incontinence (urinary). Widespread pain (comments) Edenilson brannon presents for a virtual follow up and medications refill. She reports her widespread pain has been stable this month. Her pain is most bothersome in her low back, L knee, and L ankle. States her pain flares w/ increased activity. Notes of additional pain in her R leg over the last couple days that has now resolved.Reports current medication regimen provides 80+% pain relief and allows for increased functionality when helping her daughter w/ home school. Denies SE from her current medication.No other concerns today. Widespread pain (comments) Edenilson brannon presents for a virtual follow up and medications refill. Her pain has been stable this past month. Pain is worst in her BL knees, low back and L ankle. Reports some increased pain in her feet as of late and plans to consult a new digital imaging specialist.Patient recently experienced some heart issues. Her cad developer found some abnormalities, but then a later stress test came back negative. Patient states that she was never told what the specific findings were.Reports current medication regimen provides 80+% pain relief and allows for increased functionality when spending time with her granddaughter. Denies side effects from current medication regimen.No other concerns today. Widespread pain Severity level i s 5. Duration: chronic. Location of the pain is lower back, bilateral knee and left ankle. The patient describes it as achy and burning. It occurs intermittently. The problem is stable. Symptom is aggravated by walking upstairs, walking downstairs, sitting, walking and lifting. Relieving factors include heat, cold and Rx Meds. Pertinent negatives include diarrhea, fatigue, fever and incontinence (urinary). Widespread pain Severity level i s 5. Duration: chronic. Location of the pain is lower back, knee and ankle. It occurs persistently. The problem is worsening. Symptom is aggravated by bending, walking upstairs, walking downstairs, standing and walking. Relieving factors include massage, cold, Rx Meds and changing positions. Pertinent negatives include diarrhea, fatigue, fever and incontinence (urinary). Widespread pain (comments) Edenilson brannon is here for follow up and medications refill. Her L knee and L ankle pain has been worse since last visit. Reports additional pain in her back and shoulders that are intermittent and stable.Notes of depression d/t current COVID-19 pandemic. Consults a psychologist weekly w/ some benefit.Reports current medication regimen provides 80-90+% pain relief and allows for increased functionality. Denies side effects from current medication regimen.No other concerns today. Widespread pain Severity level i s 5. Duration: chronic. Location of the pain is lower back and bilateral knee. The patient describes it as achy, burning and numbness. It occurs persistently. The problem is stable. Symptom is aggravated by bending, sitting, standing, walking, housework and lifting. Relieving factors include walking, stretching, massage, rest, heat and cold. Widespread pain (comments) Rustam mckeon is here for follow up and medications refill. Reports current medication regimen provides 80% pain relief and allows for increased functionality. Denies side effects from current medication regimen. Patient's pain is persistent and chronic. Lower back and knee pain is stable upon today's visit. Still experiencing heaviness with increased activity.BL foot pain is still bothersome, L>R. Following up with digital imaging specialist.Potential COVID 19 exposure, quarantining for 14 days.Patient presents with #15 Grygla - surplus today.No other concerns today. Widespread pain Severity level i s 4. Duration: chronic. Location of the pain is lower back, left knee and left ankle. The patient describes it as achy, tingling and numbness. It occurs persistently. The problem is fluctuating. Symptom is aggravated by walking upstairs, walking downstairs, sitting, standing, walking, lifting and housework. Relieving factors include massage, cold, Rx Meds and changing positions. Pertinent negatives include diarrhea, fatigue, fever and incontinence (urinary). Widespread pain (comments) Edenilson brannon presents for a follow up and medication refill. Reports 80% pain relief with current medication regimen and allows increased functionality. Denies any SE's, pt notes improvement with itching since d/c'ing Percocet. Reports that she feels there is a brick on her shoulders when she walks or stands for long periods of time which exacerbates lumbar pain. Pt finds benefit with ice. Continuing to do daily exercises and stretches and has been active while watching her granddaughter. Continuing to consider SCS trial although wants to discuss with her and learn more about it..BL feet continue to be bothersome. Pt plans to consult with a new digital imaging specialist, previously was given a cloth boot with minimal benefit. Will use sports medicine tape which she intermittently finds helpful. No other concerns today. Widespread pain (comments) Edenilson brannon presents for follow up and medications refill for ongoing lumbar, left knee and left ankle pain. States her pain is fluctuating with pain flares. Pain is worse in her back and hip. She had recently started working at home due to COVID-19 but tries to remain active by going on more walks in the park, running errands, and using the treadmill.Notes her plantar fascitis has improved with a sport bandage wrap. She had x-ray imaging of her ankle with her orthopedist completed that shows a bone chip that causes aggravation of her ankle and foot. Pain intermittently radiates to knee. She hopes to schedule an appointment with her purchase request editor when able.Reports current medication regimen provides 80% pain relief. SE of taking Percocet include itching. Requesting to discontinue Percocet and increasing Grygla. Medications continue to provide pain relief and allow her to do everyday tasks.No other concerns today. Widespread pain Severity level i s 7. Duration: chronic. Location of the pain is lower back, bilateral knee and bilateral ankle. The patient describes it as sharp, achy and burning. It occurs persistently. The problem is stable. Symptom is aggravated by bending, walking upstairs, walking downstairs, standing and walking. Relieving factors include sitting, stretching, massage, rest, heat, cold and Rx Meds. Pertinent negatives include diarrhea, fatigue, fever and incontinence (urinary). Widespread pain Severity level i s 6. Duration: chronic. Location of the pain is lower back, left knee and left ankle. The patient describes it as sharp, achy and numbness. It occurs persistently. The problem is worsening. Symptom is aggravated by bending, walking upstairs, walking downstairs, sitting, standing, housework and lifting. Relieving factors include heat and cold. Pertinent negatives include diarrhea, fatigue, fever and incontinence (urinary). Widespread pain (comments) Rustam mckeon is here for follow up and medications refill for ongoing lumbar, left knee and left ankle pain. States her pain has gotten worse since last OV. She had recently started working at home due to COVID-19 but tries to remain active by going on more walks in the park and using the Treadmill. Reports current medication regimen provides 80% pain relief. SE of taking Percocet include itching. Questions if discontinuing Percocet and increasing Grygla would be appropriate but would like to hold off until next month when PA has been approved for her medication. Grygla continues to provide pain relief and allow her to do everyday tasks. No other concerns today.Of note, she continues to have a lingering cough and was prescribed cough syrup with Codeine. Widespread pain Severity level i s 5. Duration: chronic. Location of the pain is lower back, left knee and left ankle. The patient describes it as achy, tingling and numbness. It occurs persistently. The problem is worsening. Symptom is aggravated by walking upstairs, walking downstairs, sitting, standing, lifting and prolonged positioning. Relieving factors include heat and cold. Pertinent negatives include diarrhea, fatigue, fever and incontinence (urinary). Widespread pain (comments) Rustam mckeon is here for follow up and medications refill for ongoing lumbar, left knee, and left ankle pain. States her pain has gotten worse since last OV and is affected by weather changes. Continues to have lingering cold symptoms but reports she does not have pneumonia. She will plan to follow up with her PCP on 12/15. Remains interested in pursuing the SCS trial but will plan to hold off until there are fewer stressors in her life. Reports current medication regimen provides 80% pain relief. Denies side effects from current medication regimen. Medications continues to provide pain relief and allow her to do everyday tasks, such as taking care of her grandchildren. No other concerns today. Widespread pain Severity level i s 2-7. Duration: chronic. Location of the pain is lower back and left knee. The patient describes it as achy and burning. It occurs intermittently. The problem is fluctuating. Symptom is aggravated by walking upstairs, walking downstairs, sitting, standing, walking, supine and lifting. Relieving factors include walking, massage and Rx Meds. Pertinent negatives include diarrhea, fatigue, fever and incontinence (urinary). Widespread pain (comments) Rustam mckeon is here for follow-up and medication refills. She continues to be interested in pursuing SCS trial. She has not yet started PT since she was sick with a cold and pneumonia. She has some lingering symptoms of a cold but the pneumonia has resolved. Patient has a small surplus of medications today. Reports at least 80-90% relief from the medication which increases her daily activity level. Denies side effects. Widespread pain (comments) Rustam mckeon is here for follow up and medications refill for ongoing lumbar and bilateral knee pain. States her pain has gotten worse since last OV due to recently earl pneumonia. She was prescribed cough syrup w/ Codeine. Interested in restarting PT as it has provided benefit in the past. Remains interested in pursuing the SCS trial but would like to hold off until her recent illness has passed and there are fewer stressors in her life. Reports current medication regimen provides 80% pain relief. Denies side effects from current medication regimen. Medications continue to provide pain relief and allow her to do everyday tasks. No other concerns today. Widespread pain Severity level i s 2. Duration: chronic. Location of the pain is lower back and bilateral knee. The patient describes it as sharp. It occurs intermittently. The problem is worsening. Symptom is aggravated by sitting, standing, walking, housework, lifting and prolonged positioning. Relieving factors include walking, massage, cold, Rx Meds and changing positions. Pertinent negatives include diarrhea, fatigue, fever and incontinence (urinary). Widespread pain Severity level i s 4. Duration: chronic. Location of the pain is lower back, right knee and right foot. It occurs persistently. The problem is stable. Symptom is aggravated by walking upstairs, walking downstairs, sitting, standing, walking, lifting and prolonged positioning. Relieving factors include stretching, massage, cold, Rx Meds and changing positions. Pertinent negatives include diarrhea, fatigue, fever and incontinence (urinary). Widespread pain (comments) Rustam mckeon is here for follow up and medications refill for ongoing lumbar, right knee and right foot pain. Denies any recent changes to her pain. C/o increased lumbar pain this month due to increased activity. She has not yet scheduled a surgical consult with Dr. Francois or started PT but will plan to do so soon. Remains interested in pursuing the SCS trial but would like to hold off until the New Year. Reports current medication regimen provides 85% pain relief. Denies side effects from current medication regimen. Medications continue to provide pain relief and allow her to do everyday tasks, such as spending time with her family. Reports benefit from an old RX of Flexeril. No other concerns today. Widespread pain Severity level i s 3. Duration: chronic. Location of the pain is lower back and bilateral knee. The patient describes it as achy, burning and tingling. It occurs persistently. The problem is fluctuating. Symptom is aggravated by overuse. Relieving factors include stretching, rest and Rx Meds. Pertinent negatives include diarrhea, fatigue, fever and incontinence (urinary). Widespread pain (comments) Edenilson brannon is here for follow up and medications refill for c/c of widespread pain which has been fluctuating. Low back pain has been stable with intermittent pain flares this month; patient is still considering an SCS but is concerned about implanting something in her body. BL knee and ankle pain has been worse. Discussed all of this with PCP who recommended low back injections and wrote her an order for them to be done at the [facility]. She told him she comes to [facility] but he had already written the order so she plans to pursue these injections elsewhere. Reports current medication regimen provides 80% pain relief and allows for increased functioning. Denies side effects from current medication regimen.No other concerns today. Widespread pain (comments) Rustam mckeon is here for follow up and medications refill for ongoing lumbar, left knee, and left ankle pain. States that he had a surgical consult at [facility] and was told she was not a surgical candidate at this time. Remains interested in pursuing the SCS trial but wants to review if surgery is recommended first.Did have a consult with Dr. Kim for her left ankle pain- recently completed MRI and CT scans. States she also has concerns that her left knee will need to be revised. Patient presents with #13 Grygla- surplus, and #4 Percocet - on track. Reports current medication regimen provides 80% pain relief. Denies side effects from current medication regimen. No other concerns today. Widespread pain Severity level i s 2-3. Duration: chronic. Location of the pain is lower back, left hip and left LE. The patient describes it as achy, burning and tingling. It occurs persistently. The problem is worsening. Symptom is aggravated by daily activities. Relieving factors include rest and Rx Meds. Pertinent negatives include diarrhea, fatigue, fever and incontinence (urinary). Widespread pain (comments) Rustam mckeon is here for follow up and medications refill for ongoing right cervical, lumbar, left hip, left thigh, and left knee pain. States her pain has been changing since last OV. She has scheduled a surgical consult at [facility] on 06/19. She will plan to follow up with her orthopedist in regards to her foot pain. She had recently follow up at [facility] on 06/14. Remains interested in pursuing the SCS trial but wants to review if surgery is recommended first.Patient presents with #28 Grygla, and #7 Percocet - both are a surplus. Reports current medication regimen provides 70% pain relief. Denies side effects from current medication regimen. Medications continue to provide pain relief and allow her to do everyday tasks. No other concerns today. Widespread pain Severity level i s 3-4. Duration: chronic. Location of the pain is lower back, neck, left hip, left knee and left thigh. The patient describes it as achy. It occurs persistently. The problem is changing in character. Symptom is aggravated by bending, walking upstairs, walking downstairs, sitting, standing, walking and lying down. Relieving factors include cold and Rx Meds. Pertinent negatives include diarrhea, fatigue, fever and incontinence (urinary). Widespread pain (comments) Rustam mckeon is here for follow up and medications refill for ongoing right cervical, lumbar, left hip and left thigh pain. Denies any recent changes to her pain. She had recently updated her lumbar MRI and completed a lumbar DALE through [facility] which provided some benefit. C/o increased LLE pain this month. She is aware of the SCS trial and may consider pursuing it in the future. Patient presents with #13 Grygla, and #6 Percocet - both are a slight surplus. Medications bring pain level down from 10 to 4 out of 10. Denies side effects from current medication regimen. Medications continue to provide pain relief and allow her to do everyday tasks. No other concerns today. Widespread pain Severity level i s 4. Duration: chronic. Location of the pain is lower back, neck, left hip and left thigh. The patient describes it as burning. It occurs persistently. The problem is worsening. Symptom is aggravated by walking upstairs, walking downstairs, standing, walking and lying down. Relieving factors include massage and cold. Widespread pain Severity level i s 3. Duration: chronic. Location of the pain is lower back, left shoulder, bilateral hip and left knee. The patient describes it as achy. It occurs intermittently. The problem is stable. Symptom is aggravated by bending, walking upstairs, walking downstairs, sitting, walking, lifting and lying down. Relieving factors include massage and cold. Pertinent negatives include diarrhea, fatigue, fever and incontinence (urinary). Widespread pain (comments) uRstam mckeon is here for follow up and medications refill for ongoing lumbar, bilateral hip, and left knee pain. Denies any recent changes to her pain. She has scheduled a lumbar MRI for sometime this month. She is aware of the SCS trial and may consider pursuing it in the future. She will also plan to follow up with Dr. Cottrell to discuss further interventions. Patient presents with #21 Percocet-surplus, and #8 Grygla - appropriate, pharmacy issue noted. Medications bring pain level down from 9 to 3 out of 10. Denies side effects from current medication regimen. Medications continue to provide pain relief and allow her to do everyday tasks, such as spending time with her grandchildren. No other concerns today. Widespread pain (comments) Rustam mckeon is here for follow up and medications refill for ongoing bilateral shoulder, lumbar, left knee, left hip, and LLE pain. States her pain has gotten worse since last OV. She will plan to follow up with her neurologist, Dr. Cottrell sometime soon in regards to pursuing interventions for her hip/spine. Patient presents with #18 Grygla, and #9 Percocet - both on track. Patient also presents with Codeine cough syrup prescribed by PCP. Reports current medication regimen provides 80% pain relief. Denies side effects from current medication regimen. No other concerns today. Widespread pain Severity level i s 4. Duration: chronic. Location of the pain is lower back, bilateral shoulder, left hip, left knee and LLE. The patient describes it as sharp and achy. It occurs persistently. The problem is worsening. Symptom is aggravated by housework, lifting, sitting and walking. Relieving factors include cold. Pertinent negatives include diarrhea, fatigue, fever and incontinence (urinary). Widespread pain Severity level i s 3. Duration: chronic. Location of the pain is lower back and LLE. The patient describes it as achy. It occurs persistently. The problem is worsening. Symptom is aggravated by sitting, standing, walking, lifting and lying down. Relieving factors include heat and cold. Pertinent negatives include diarrhea, fatigue, fever and incontinence (urinary). Widespread pain (comments) Edenilson brannon is here for follow up and medications refill. Presents with #3 norco and #0 percocet-- on track. Reports current medication regimen provides 50% pain relief. Denies side effects from current medication regimen. Pain is worse overall. C/o low back pain that radiates down LLE-- will be getting LESI. Currently getting over sinus infection. Inquires about cough syrup rx. Of note, pt will be traveling to [place] in a couple weeks. No other concerns today. Widespread pain Duration: chroni c. Location of the pain is lower back. The patient describes it as numbness. It occurs persistently. The problem is stable. Symptom is aggravated by walking upstairs, walking downstairs, standing, walking and overuse. Relieving factors include rest, heat, cold, OTC Meds and Rx Meds. Pertinent negatives include diarrhea, fatigue, fever and incontinence (urinary). Widespread pain (comments) Rustam mckeon is here for a f/u. Has #7 Grygla and #0 Percocet remaining - was due out 11/26/2018. Medications are effective at relieving pain without SE. Ana's pain has been fluctuating since last visit. Ana went to the ER d/t blood in her urine. She found out she has kidney stones and has a procedure for next week to get rid of them. She C/o left ankle pain. She was hoping to increase her Percocet to two a day for the next month. She continues to exercise for pain relief. She has no other concerns to address today. PT-N/AESI-N/ARF-not tried SCS-not tried Meds: Opioids-Currently takes Grygla and Percocet - MME 65.00 Neuropathics-has tried gabapentin Muscle Relaxant- has tried cyclobenzaprine Mcae-Ysbfuwwzjmmndg-D/AMedical Cannabis-not certified Widespread pain Severity level i s 4. Duration: chronic. Location of the pain is lower back. The patient describes it as burning. It occurs persistently. The problem is worsening. Symptom is aggravated by bending, overuse and prolonged positions. Relieving factors include massage, rest, heat, cold, OTC Meds and Rx Meds. Pertinent negatives include diarrhea, fatigue, fever and incontinence (urinary). Widespread pain (comments) Rustam mckeon is here for a f/u. Has #8 Grygla and #0 Percocet remaining - on track. Medications are effective at relieving pain without SE. Ana's pain has been worse since last visit. Ana recently had a hip injection and states her pain got worse from it. Her hip is still bruised from the procedure, which she has been icing it for relief. She tried using her 's TENs unit, but states it has not been helping. She would like a PT order for her back, left hip and knee. She would like a handout for the DRG. She would like to try taking a little more gabapentin for nerve pain relief. She is not interested in any procedures at the moment. PT-Ordered for neck, left hip and knee DALE-N/ARF-Not tried SCS-Not tried Meds: Opioids-Currently takes percocet and Grygla Neuropathics-Has tried gabapentin Muscle Relaxant- has tried Cyclobenzaprine Depx-Cpnpuednkhacvt-V/AMedical Cannabis-N/A Widespread pain (comments) Rustam mckeon is here for follow up and medications refill for ongoing widespread pain. Denies any recent changes to her pain. C/o increased left knee pain this whitney but will plan to start pool PT sometime soon. Patient presents with #5 Percocet- on track, and #18 Grygla - 0.5 days short. Medications bring pain level down from 9 to 4 out of 10. Denies side effects from current medication regimen. No other concerns today.Of note, she will plan to be out of town to [place] sometime next week. Widespread pain Severity level i s 4-5. Duration: chronic. Location of the pain is lower back, bilateral hip and left knee. The patient describes it as burning. It occurs persistently. The problem is stable. Symptom is aggravated by bending, sitting, walking and lifting. Denies relieving factors. Pertinent negatives include diarrhea, fatigue, fever and incontinence (urinary). Widespread pain Severity level i s 3. Duration: chronic. Location of the pain is lower back, bilateral shoulder, bilateral hip and left knee. The patient describes it as achy and tingling. It occurs persistently. The problem is worsening. Symptom is aggravated by bending, running, stairs and housework. Relieving factors include massage, heat, cold, Rx Meds and physical therapy. Pertinent negatives include diarrhea, fatigue, fever and incontinence (urinary). Widespread pain (comments) Edenilson brannon is here for follow up and medications refill. Presents with #3 Grygla, #0 Percocet - on track. Reports current medication regimen provides 70% pain relief. Denies side effects from current medication regimen. Reports decrease in Percocet was difficult. She continues to take 300mg gabapentin - if she takes 600mg or more, she is very groggy/drowsy.Reports she was prescribed a Medrol pack for her left knee last week as her pain has been worse this past month.Of note, she recently got back from a trip to [place], which increased her pain. Widespread pain (comments) Sosafallon mike is here for follow up and medications refill. Presents with #4 Grygla, and #1 Percocet - both on track. Patient did not provide a percentage pain relief with medications. Denies side effects from current medication regimen. States her pain has been fluctuating since last OV. Medications continue to provide pain relief and allow for increased functioning. Patient is in agreement of a medications taper and would like to decrease Percocet from BID to QD. C/o increased LLE pain but has recently started PT which provides some benefit. May consider starting med care manager. No other concerns today.Of note, she will be out of town from 04/28 and will return in a few weeks. Widespread pain Severity level i s 4. Duration: chronic. Location of the pain is lower back, left knee and left ankle. The patient describes it as burning and tingling. It occurs persistently. The problem is fluctuating. Symptom is aggravated by daily activities. Relieving factors include Rx Meds. Pertinent negatives include diarrhea, fatigue, fever and incontinence (urinary). Widespread pain Severity level i s 4. Duration: chronic. Location of the pain is lower back, left knee and left ankle. The patient describes it as achy, burning and tingling. It occurs persistently. The problem is fluctuating. Symptom is aggravated by daily activities. Relieving factors include Rx Meds. Pertinent negatives include diarrhea, fatigue, fever and incontinence (urinary). Widespread pain (comments) Rustam mckeon is here for follow up and medications refill. Presents with #13 Grygla 10-325mg - on track, #6 Grygla 7.5-325mg -surplus, and #30 Percocet- surplus. Patient did not provide a percentage pain relief with medications. Denies side effects from current medication regimen. States her pain has been fluctuating since last OV. Medications continue to provide pain relief and allow for increased functioning. Expresses her concerns with her insurance not being able to cover some of her medication. C/o increased left knee pain and will plan to follow up with her surgeon sometime next week. Also c/o increased ankle pain due to tendonitis. Requesting an order for PT. No other concerns today. Widespread pain (comments) Rustam mckeon is here for follow up and medications refill. Presents with #30 Percocet, and #1 Grygla - both are a surplus. Patient did not provide a percentage pain relief with medications. Denies side effects from current medication regimen. States her pain has been changing since last OV. Medications continue to provide pain relief and allow for increased functioning. She takes 4-5 Grygla/day which provides pain relief and has not touched her Percocet.She had recently completed a left TKR on 12/05 but has noticed difficulty moving her knee. Also c/o increased left ankle pain due to tendinitis. She will plan to follow up with her surgeon on 02/02. She continues to attend PT which provides benefit. No other concerns today. Widespread pain Severity level i s 10. Duration: chronic. Location of the pain is lower back, left knee and left ankle. The patient describes it as achy, burning and tingling. It occurs persistently. The problem is changing in character. Denies aggravating factors. Denies relieving factors. Pertinent negatives include diarrhea, fatigue, fever and incontinence (urinary). Widespread pain Severity level i s 6. Duration: chronic. Location of the pain is lower back, mid back, upper back, neck, bilateral shoulder, bilateral hip and bilateral knee. The patient describes it as achy, burning and tingling. It occurs persistently. The problem is worsening. Symptom is aggravated by bending, walking upstairs, walking downstairs, standing, lifting and lying. Relieving factors include walking, stretching, massage, cold, Rx Meds and changing positions. Pertinent negatives include diarrhea, fatigue, fever and incontinence (urinary). Widespread pain (comments) Rustam mckeon is here for follow up and medications refill. Presents with #8 Grygla- surplus. Reports current medication regimen provides 90% pain relief. Denies side effects from current medication regimen. Staes her pain has gotten worse since last OV. She had recently contracted the flu which has increased her pain. Medications continue to provide pain relief and allow for increased functioning. She will plan to follow through with her total left knee replacement surgery before 01/01/18, as previously discussed. No other concerns today. Widespread pain (comments) Rustam mckeon is here for follow up and medications refill. Presents with #3 Grygla, and no Percocet- appropriate. Patient did not provide a percentage pain relief with medication. Denies side effects from current medication regimen. States her pain has gotten worse since last OV. Medications allow her to do everyday tasks and increase her functioning. She has followed up with Dr. Herrera at [facility] and will plan to have a total knee surgery by the end of 11/2017 but states she would like to go on a vacation first. No other concerns today. Widespread pain Severity level i s 4. Duration: chronic. Location of the pain is lower back, mid back, neck, bilateral shoulder, bilateral hip and bilateral knee. The patient describes it as achy and tingling. It occurs persistently. The problem is worsening. Denies aggravating factors. Denies relieving factors. Pertinent negatives include diarrhea, fatigue, fever and incontinence (urinary). Widespread pain (comments) Edenilson brannon is here for follow up. Has #17 Grygla and #14 Percocet - large surplus. She had her mckeon's cyst removed but states it came back. Planning on having left knee surgery in early 2017. She reports her pain is stable with the medications. She is seeing a gastrologist and states that her constipation is well-controlled. Her daughter's family is moving back into their house for several months. No other concerns. Widespread pain Duration: chroni c. Location of the pain is lower back and bilateral knee. The patient describes it as achy. It occurs persistently. The problem is stable. Symptom is aggravated by daily activities and stress. Relieving factors include rest and Rx Meds. Pertinent negatives include diarrhea, fatigue, fever and incontinence (urinary). Widespread pain (comments) Rustam mckeon is here for follow up and medications refill. Presents with #14 Grygla, and #8 Percocet - both are a surplus. Patient did not provide a percentage pain relief with medications. Denies side effects from current medication regimen. States her pain has been stable since last OV. She takes Percocet sparingly which is effective in relieving her pain but SE include itching. Medications allow her to do everyday tasks and increase her functioning. C/ of pain from a bakers cyst in her left knee and will follow up with ortho. She recently returned from [place] in which she contracted a cold. She is currently wearing a mask during the OV today. No other concenrs today. Widespread pain Duration: chroni c. Location of the pain is lower back and bilateral knee. The patient describes it as burning and tingling. It occurs persistently. The problem is stable. Denies aggravating factors. Relieving factors include Rx Meds. Pertinent negatives include diarrhea, fatigue, fever and incontinence (urinary). Widespread pain (comments) Rustam mckeon is here for follow up and medications refill. Presents with #13 Percocet- surplus and #8 Grygla - slight surplus. Patient did not provide a percentage pain relief with medications. Denies side effects from current medication regimen. States her pain has been stable since last OV. She has an active lifestyle due to daughter trying to sell her house and going on more walks. Medications allow her to do everyday tasks and increase her functioning. States her would prefer for her to be on medical cannibas but she declines this treatment option.Of note, was recently being admitted to the hospital for stomach pain. She had an abdominal MRI done which indicated a benign lesion on her liver. Widespread pain Duration: chroni c. Location of the pain is lower back and bilateral knee. It occurs persistently. The problem is stable. Denies aggravating factors. Denies relieving factors. Pertinent negatives include diarrhea, fatigue, fever and incontinence (urinary). Widespread pain Severity level i s moderate. Duration: chronic. Location of the pain is bilateral shoulder, bilateral hip, bilateral knee and right forefoot. It occurs persistently. The problem is stable. Pertinent negatives include diarrhea, fatigue, fever and incontinence (urinary). Widespread pain (comments) Rustam mckeon is here for follow up and medications refill. Presents with #18 Percocet and #3 Grygla- both are a surplus. Patient did not provide a percertage pain relief with medication. SE of her medication include constipation. Presents here with her . She has recently arrived back from a vacation with her . The increased dosage of Percocet was effective in relieving her pain and would like to continue this regimen. Medications allow her to do everyday tasks and increase functioning. She had an acute pain in her groin that lasted for about 4 days, which increased her level of distress. She is interested in medical cannibas but would not like to give up her opioid medication. She is planning to have knee surgery this coming Winter. She would eventually like to taper off her medication is small doses after her surgery. Widespread pain (comments) Rustam mckeon is here for follow up and medications refill. Spouse present for the visit today. Patient presents with #23 Percocet - takes when needed, and #18 Grygla- on track . Reports current medication regimen provides 70% pain relief. Denies side effects from current medication regimen. She would like to increase her Grygla medication by 1 pill extra per day to account for increased activity and increased pain. Reports gabapentin was not effective in relieving pain- SE included being sluggish. She ocassionally gets a zapping pain in her lower back. She is not ready to do knee surgery at this time. She is currently not interested in PT but may be open to it by next OV. She is interested in doing beginner Nico Chi. No other concerns today. Widespread pain Severity level i s 4-6. Duration: chronic. Location of the pain is lower back, bilateral shoulder, bilateral hand, bilateral knee, bilateral forefoot and bilateral thigh. The patient describes it as sharp, achy and burning. It occurs persistently. The problem is changing in character. Symptom is aggravated by bending, standing, lifting, stairs and twisting. Relieving factors include walking, stretching, heat, cold and Rx Meds. Pertinent negatives include diarrhea, fatigue, fever and incontinence (urinary). Widespread pain (comments) Rustam mckeon is here for a follow-up and medication refill. Presents with #6 Grygla and #0 Percocet- on track. Reports current medication regimen provides 80-90% pain relief. Denies SE from current medication regimen. Has not thought about starting PT yet. Widespread pain Severity level i s 5. Duration: chronic. Location of the pain is widespread. The patient describes it as achy and burning. It occurs intermittently. The problem is worsening. Relieving factors include heat, cold and Rx Meds. Pertinent negatives include diarrhea, fatigue, fever and incontinence (urinary). Widespread pain (comments) Rustam mckeon is here for a follow-up and medication refill. Presents with #6 Grygla and #10 Percocet - on track. Reports current medication regimen provides 40-50% pain relief. Has been caring for her 2 year old grandchild so has been staying active. Decided against robotic surgery and continues to be anxious over having another surgery. Has been having increased pain in right knee especially during movement. Planning on having [employer] for right knee soon. Widespread pain Severity level i s 5. Duration: chronic. Location of the pain is lower back, bilateral hip and bilateral knee. It occurs persistently. Symptom is aggravated by bending, housework, lifting, sitting, stairs and standing. Pertinent negatives include diarrhea, fatigue, fever and incontinence (urinary). Widespread pain (comments) Edenilson is here for a followup and medication refill. She has #3 Grygla and #19 Percocet - on track. She reports 80-90% relief from pain medication. She states tripping up the stairs and injuring her knees, increasing pain. Medication is effective, however SE such as constipation. She is looking into other options before a total knee replacement. States PT was last completed a couple years ago, financially not beneficial for her. Reports not going through with MRI for neurology d/t claustrophobia. Widespread pain Severity level i s 6. Duration: chronic. Location of the pain is lower back, bilateral shoulder, bilateral hip and bilateral knee. The patient describes it as achy and burning. It occurs persistently. The problem is worsening. Denies aggravating factors. Denies relieving factors. Widespread pain Severity level i s 5. Duration: chronic. Location of the pain is lower back, left hip and bilateral knee. The patient describes it as achy. It occurs persistently. The problem is stable. Symptom is aggravated by standing and daily activities. Relieving factors include walking and Rx Meds. Pertinent negatives include diarrhea, fatigue, fever and incontinence (urinary). Widespread pain (comments) Edenilson brannon is in for a f/u and medication refill. She has #14 Grygla and #25 Percocet remaining- on track. Reports pain meds provide 50% pain relief and improve function. She met with neurosurgeon Dr. Celestino Cruz and states he did not recommend lumbar surgical intervention at this time. Reports she may have to have right hip surgery if pain worsens. She is waiting to have robotic total left knee replacement when it is available. Plans to have left knee Mckeon's cysts released soon. She has been walking about 1 mile/day which helps manage pain. States that she entered MRI machine to have cervical MRI due to small mass on right side of her neck, however felt claustrophobic and was unable to complete MRI. No other concerns today. Widespread pain (comments) Rustam mckeon is here for a follow-up and medication refill. Presents with #7 Grygla - on track. Reports current medication regimen provides effective pain relief. Patient will be having a brain and cervical MRI next week due to 'zapping sensations on her head as ordered by neurology. Will be meeting with neurosurgeon soon to review options for her low back pain. Patient has one more tablet of Percocet at home, uses the Percocet about 3-4 tablets per month for aggravating pain in BL knees especially at night. Widespread pain Severity level i s 4. Duration: chronic. Location of the pain is Bl hips, BL knees and low back. The patient describes it as achy, burning and tingling. It occurs persistently. Symptom is aggravated by bending, lifting, sitting, stairs and standing. Pertinent negatives include diarrhea, fatigue, fever and incontinence (urinary). widespread pain (comments) Rustam mckeon is here for a follow-up and medication refill. Presents with #9 Grygla- on track. Continues to use Percocet for severe pain days; used 3 tablets over the past month. Reports current medication regimen provides 60-65% pain relief. No new symptoms except for burning in BL LE. States that she is waiting to have robotic total knee replacement on the left. Has recently had F/U with ortho. Will be seeing neurosurgeon regarding low back pain. widespread pain Severity level i s 5. Duration: chronic. Location of the pain is lower abdomen, lower back, right shoulder and RUE. It occurs intermittently. Symptom is aggravated by sitting, lifting, twisting, standing, running and stairs. Relieving factors include stretching, rest, heat, cold, Rx Meds and massage. Pertinent negatives include diarrhea, fatigue, fever and incontinence (urinary). widespread pain (comments) Rustam mckeon is here for a follow-up and medication refill. Presents with #15 Percocet - 2 day surplus. Reports current medication regimen provides 65% pain relief. Has been feeling better but is feeling more itchy. Is wondering if she could take both Percocet and Grygla. Would previously take Percocet only for severe days. Met with knee specialist who indicated she needs partial right knee and total left knee replacement. Was told to wait on these surgeries until later in her life. Is planning on scheduling consult with debt collection specialist. widespread pain Severity level i s 5. Duration: chronic. Location of the pain is lower back, neck, bilateral hip and bilateral knee. It occurs persistently. Symptom is aggravated by lifting, sitting, standing, stairs and housework. Pertinent negatives include diarrhea, fatigue, fever and incontinence (urinary). widespread pain (comments) Rustam mckeon is here for a follow-up and medication refill. Presents with #11 Grygla - small surplus. Reports current medication regimen provides 40% pain relief. Did not buy Amitiza or Linzess because they were expensive and she did not feel she needed them. Denies SE except for constipation - manages with OTC stool softener. No new symptoms this month except for burning in BL shins. Will not be having knee surgery until she loses 20 pounds. Patient is interested in discontinuing Grygla and switching to Percocet. widespread pain Severity level i s 6. Duration: chronic. Location of the pain is lower back, upper back, neck, BL knees and BL shins. The patient describes it as burning. It occurs persistently. The problem is stable. Symptom is aggravated by sitting, lifting, standing and stairs. Relieving factors include walking, massage, heat, cold and Rx Meds. Pertinent negatives include diarrhea, fatigue, fever and incontinence (urinary). widespread pain Severity level i s 6. Duration: chronic. Location of the pain is lower back, bilateral shoulder, bilateral hip and bilateral knee. The patient describes it as achy. It occurs persistently. The problem is changing in character. Symptom is aggravated by sitting, lifting, twisting, standing and stairs. Relieving factors include rest, heat, cold, Rx Meds, stretching and massage. Pertinent negatives include diarrhea, fatigue, fever and incontinence (urinary). widespread pain (comments) Rustam mckeon is here for a follow-up. She is here with her . Reports current medication regimen provides 75-85% pain relief. Reports constipation due to medication, some benefit from Miralax. Would not like to pursue medical marijuana at this time. Percocet is used for breakthrough pain and usually takes one dose per month. Requesting increase in Grygla as she feels that it does not work long enough. Patient is using Miralax and Fibercon every 2 days for constipation. widespread pain (comments) Edenilson brannon is here for an initial pain consult. She was referred by Dr. Sanchez at [facility]. Is here with her Teja. [facility] is no longer RX opioids so she would like [facility] to take over pain medication management. Is taking Grygla TID and Percocet PRN (60 pills every 6 months). Reports effective pain relief from Grygla. She is more active and functional on pain medications. supports and verifies her statements. is concerned over her constipation. Patient manages constipation with FiberCon, Miralax. Her IBS complicates constipation symptoms. Bucket Turner indicated that she does not have IBS but 'tangled' colons. Used to go to [facility] in [facility] and she was taking oxycodone - felt like a zombie for a few years. She had LESI at [facility] and [facility] and reports they were not helpful and severe complications from them. Has had many PT treatments and last treatment was a few years ago. Neck pain radiates into BL shoulders. 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 Patient is seeing sports medicine physician (Dr. Morgan) at [facility] in [place] who indicates taht she needs left knee surgery. She may have had RF workups at [facility] and reports they were not successful. Was in [place] recently and tried marijuana candy. widespread pain Onset occurred 1 6 years ago. Severity level is 6. Duration: chronic. Location of the pain is lower back, neck and bilateral knee. It occurs persistently. Symptom is aggravated by walking upstairs, walking downstairs, lifting, bending, twisting, standing and housework. Relieving factors include walking, stretching, massage, heat, cold and Rx Meds. Pertinent negatives include diarrhea, dyspnea, fever and incontinence (urinary). Functional Status Date Functional Assessmen t No Information Instructions Date Instruction Additional Infor mation No Information Assessments Type Assessment Date assessment Anxiety impression Ongoing anxiety, sta ble since last OV d/t her friend being recently diagnosed with cancer. Fowarded/pertinent HX: Currently prescribed Diazepam 0.5mg TID PRN by her PCP, mostly using for the ringing in her ears and anxiety this causes. She is aware of the increased risk of combining a benzo and opioids. She tries to take her Diazepam as needed at night. She takes Diazepam about 2 hours before taking Grygla assessment Chronic pain syndrome impression Ana is a 73yo fem alisha that presents to the clinic for chronic low back and left ankle pain assessment Pain in left ankle impression Chronic left ankle p ain r/t previous fracture, stable since last OV. Of secondary concern today. Forwarded/pertinent HX: Left foot XR on 07/22/2019 previously reviewed and report indicates:CONCLUSION: Radiograph demonstrates mild bunion, mild HVIP, slight uncovering of the talonavicular joint medially and slight loss of later talus-1st metatarsal angle assessment Other intervertebral disc degene ration, lumbar region impression Chronic low back rosie n, stable since last OV. Denies any radicular symptoms. Forwarded/pertinent HX: Hx lumbar discectomy. Hx of DALE without relief through Noran and previous reaction (difficulty breathing) with steroids.Lumbar MRI on 04/26/2019 previously reviewed and report indicates:Multilevel lumbar degenerative changes with specific findings as follows:1. L3-4 moderate central stenosis with central nerve crowding, and subarticular impingement of both L4 nerve roots.2. L2-3 mild left subarticular stenosis without impingement.3. L4-5 no residual central or subarticular stenosis.4. Scattered mild chronic foraminal stenosis without impingement.5. Multilevel mild facet degeneration.6. No spondylolysis, vertebral collapse, acute fracture, or destructive osseous lesion assessment Myalgia, other site impression Ongoing muscle pain. 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 Patient has been managing medications appropriately, and is not confused or oversedated during our office visit. MNPMP queried and showed no outside prescriptions. UDT results from 08/24/2023 previously reviewed and are consistent with current medication regimen. Appropriate to continue with opioid therapy Mental Status Date Cognitive Assessment Orientation - [place] ed to time, place, person, situation. Patient Care Teams Name Effective Dates (start - stop) Status Members No Information
--- OUTSIDE RECORDS SUMMARY | 2024-02-06 07:12 | XMS_ITS | Data Portability ---
Author Name Unknown Address [address] [place] [address] Phone [phone] Organization [facility] Address [address] [place] [address] Care Team Providers Care Aligning Inspector Name Role Phone MADDY YUAN Primary Care Provider Assessment Encounter Date Assessment Date Assessment LastModified by Organization Details LastModified Time 01/31/2024 01/31/2024 73 year old female with a symptomatic left renal calculus. Not available 01/31/2024 12:49:47 Plan of Treatment Reminders Order Date Submit Date Provider Last Modified By Organization Details Last Modified Time Details Appointments H[facility] 60 2023 12:30P M Nikko Davis MD Not available Not available Not available Lab urinalysi s, dipstick 2023 024 [facility], [address], [place], [address], 01/31/2024 16:47:56 urinalysi s, microscop ic 2023 024 [facility], [address], [place], [address], 01/31/2024 16:48:00 Referral None recorded. Procedures None recorded. Surgeries cystoscop y, with ureterosc opy, with lithotrip sy, with insertion of ureteral stent (SURG) 2023 024 [email or web address] Not available 01/31/2024 16:05:11 Imaging None recorded. Medication Orders None recorded. Patient TargetsNo targets recorded. Patient Instructions Encounter Date Encounter Id Patient Instructions Last Modified By Organization Details Last Modified Time 01/31/2024 [id number] Left renal calculus: I had the opportunity to review her imaging and reports. I strongly suspect her hematuria and symptoms are related to this stone. That being said, cystoscopy would be recommended regardless, either today if she wishes to observe the stone or as part of surgical intervention if she desires treatment. She would like to have the stone addressed given her symptoms. We then discussed options for surgical management. I first discussed extracorporeal shock wave lithotripsy and the technical aspects of this procedure. We discussed the risks of the procedure including hematoma formation, arrhythmias, risk of steinstrasse, repeat procedures, and anesthetic risks. We also touched on the fact that for lower pole renal stones, stones larger than 2.0 cm, and ureteral stones, this approach is not preferred. We then discussed ureteroscopic stone management. We discussed the technical aspects of the procedure as well as its limitations. We discussed the risks of the procedure including bleeding, infection. risk of ureteral injury, need for secondary procedures, and anesthetic complications. We also discussed that in about 5-10% of cases the ureter cannot facilitate the scope and this may require stent placement and a delayed procedure. We also discussed a ureteral stent is often left in place at the end of the procedure. This is not a permanent tube and must be removed, hopefully within 1-2 weeks of the procedure but certainly not more than 3 months post-procedure. She prefers ureteroscopic stone management. We will schedule this. Not available 01/31/2024 12:51:06 Reason for Referral None Reported. Results Created Date Observation Date Name Description Value Unit Range Abnormal Flag LastModifiedBy Organization Detail LastModifiedTime 01/31/20 24 01/31/2024 UA WITHO UT MICRO - CS URISC AN blood - uriscan large negati ve abnormal Not Available [facility] [address], [place], [address], 01/31/2024 16:47:56 01/31/20 24 01/31/2024 UA WITHO UT MICRO - CS URISC AN bilirubin - uriscan negati ve mg/dL negati ve Not Available [facility] [address] [facility] [address], [place], [address], 01/31/2024 16:47:56 01/31/20 24 01/31/2024 UA WITHO UT MICRO - CS URISC AN urobilinogen - uriscan normal mg/dL normal Not Available [facility] [address] [place] [address] [address], [place], [address], 01/31/2024 16:47:56 01/31/20 24 01/31/2024 UA WITHO UT MICRO - CS URISC AN ketones - uriscan negati ve mg/dL negati ve Not Available [facility] [address] [place] [address] [address], [place], [address], 01/31/2024 16:47:56 01/31/20 24 01/31/2024 UA WITHO UT MICRO - CS URISC AN protein - uriscan 30 mg/dL negati ve abnormal Not Available [facility] [address] [place] [address] [address], [place], [address], 01/31/2024 16:47:56 01/31/20 24 01/31/2024 UA WITHO UT MICRO - CS URISC AN nitrites - uriscan negati ve negati ve Not Available [facility] [address] [place] [address] [address], [place], [address], 01/31/2024 16:47:56 01/31/20 24 01/31/2024 UA WITHO UT MICRO - CS URISC AN glucose - uriscan negati ve mg/dL negati ve Not Available [facility] [address] [place] [address] [address], [place], [address], 01/31/2024 16:47:56 01/31/20 24 01/31/2024 UA WITHO UT MICRO - CS URISC AN pH - uriscan 5.50 5.00-9 .00 Not Available [facility] [address] [place] [address] [address], [place], [address], 01/31/2024 16:47:56 01/31/20 24 01/31/2024 UA WITHO UT MICRO - CS URISC AN sp. gravity - uriscan <=1.01 1.01-1 .03 Not Available [facility] [address] [place] [address] [address], [place], [address], 01/31/2024 16:47:56 01/31/20 24 01/31/2024 UA WITHO UT MICRO - CS URISC AN leukocytes - uriscan negati ve negati ve Not Available [facility] [address] [place] [address] [address], [place], [address], 01/31/2024 16:47:56 01/31/20 24 01/31/2024 UA WITHO UT MICRO - CS URISC AN color - uriscan yellow lt. yellow ;yello w Not Available [facility] [address] [place] [address] [address], [place], [address], 01/31/2024 16:47:56 01/31/20 24 01/31/2024 UA WITHO UT MICRO - CS URISC AN clarity - uriscan clear clear Not Available [facility] [address] [place] [address] [address], [place], [address], 01/31/2024 16:47:56 01/31/20 24 01/31/2024 UA WITHO UT MICRO - CS URISC AN total urine volume (mL) 50 /mL Not Available [facility] [address] [place] [address] [address], [place], [address], 01/31/2024 16:47:56 01/31/20 24 01/31/2024 UA MICRO SCOPI C U-WBC 0 - 2 [hpf] 0 - 2 Not Available [facility] [address] [place] [address] [address], [place], [address], 01/31/2024 16:47:59 01/31/20 24 01/31/2024 UA MICRO SCOPI C U-RBC 10 - 25 [hpf] 0 - 2 abnormal Not Available [facility] [address] [facility] [address], [place], [address], 01/31/2024 16:47:59 01/31/20 24 01/31/2024 UA MICRO SCOPI C bacteria rare [hpf] none;r are Not Available [facility] [address] [facility] [address], [place], [address], 01/31/2024 16:47:59 01/31/20 24 01/31/2024 UA MICRO SCOPI C squamous epi small /lpf negati ve,sma ll Not Available [facility] [address] [facility] [address], [place], [address], 01/31/2024 16:47:59 01/27/20 24 01/24/2024 CT, abdom en + pelvi s, w/o contr ast No observ ation record ed. [email or web address] Not Available 01/27/2024 15:16:33 Result Notes None recorded. Problems Name Status Onset Date Resolution Date Notes Provider Name and Address Organization Details Recorded Time Irritable bowel syndrome Active 024 Da Meath null, [facility] 4 08:58:19 Asthma Active 024 Da Meath null, [facility] 4 08:58:26 Hypercholesterolemia Active 024 Da Meath null, [facility] 4 08:58:31 Kidney stone Active 024 Da Meath null, [facility] 4 08:58:39 Anxiety Active 024 Da Meath null, [facility] 4 08:58:45 Depressive disorder Active 024 Da Meath null, [facility] 4 09:00:38 Problem Notes None recorded. Procedures Surgical History Date Name Laterality Status Provider Name and Address Organization Details Recorded Time 01/31/20 24 COMPLEX VISIT completed Nikko Davis MD [address] [facility],[address], [place], [address], [facility] 01/31/2024 12:48:10 01/31/20 24 Past Data Reviewed completed Nikko Davis MD [address],[facility] [address], [place], [address], [facility] 01/31/2024 12:49:33 Laparoscopic cholecystectomy completed Not Available Health Note 01/30/2024 11:35:53 Fragmenting of kidney stone completed Not Available Health Note 01/30/2024 11:35:53 Imaging Results Imaging Date Name Status LastModified by Organiz ation Details LastModified Time 01/24/2024 CT, abdomen + pelvis, w/o contrast completed Information not available 01/27/2024 15:16:33 Procedure Notes None recorded. Medical Equipment None Reported. Allergies Allergen ID Allergen Name Allergen Category Reaction Reaction Severity Criticality Documentation Date Start Date Code Code System Note Provider Name and Address Organization Details Recorded Time 596688 prednison e medicatio n Not available Not available Not available 01/27/2024 8640 RxNorm [facility] 4 08:57:55 894923 Substance with sulfonami de structure and antibacte rial mechanism of action (substanc e) medicatio n Not available Not available Not available 01/27/2024 48659 [id number] [facility]59 064882 adhesive tape environme nt,medica tion Not available Not available Not available 01/27/2024 [facility] 4 08:58:05 Medications Name Sig Start Date Stop Date Status Note LastModified by Organization Details LastModified Time cyclobenzap rine 10 mg tablet 10mg 1/day active Not Available Not Available No t Available doxycycline hyclate 100 mg capsule TAKE 1 CAPSULE BY MOUTH TWICE A DAY 01/30 completed Not Available Not Available Not Available atorvastati n 20 mg tablet 20mg 1/day active Not Available Not Available No t Available azithromyci n 250 mg tablet TAKE 2 TABLETS BY MOUTH TODAY, THEN TAKE 1 TABLET DAILY FOR 4 DAYS 01/30 completed Not Available Not Available Not Available fluconazole 150 mg tablet TAKE 1 TABLET BY MOUTH EVERY 3 DAYS FOR 2 DOSES. MAY REPEAT 2ND DOSE IN 72 HRS IF SYMPTOMS PERSIST active Not Available Not Available No t Available prednisone 20 mg tablet TAKE 1 TABLET BY MOUTH TWICE A DAY 01/30 completed Not Available Not Available Not Available ciprofloxac in 500 mg tablet TAKE 1 TABLET BY MOUTH TWICE A DAY 01/30 completed Not Available Not Available Not Available hydrocodone 10 mg-acetamin ophen 325 mg tablet TAKE 1 TABLET BY ORAL ROUTE EVERY 4 HOURS NEEDED FOR PAIN, MAX 5 TABLETS PER DAY FOR CHRONIC PAIN active Not Available Not Available No t Available aspirin 81 mg tablet,adela yed release Take 1 tablet every day by oral route. active Not Available Not Available No t Available benzonatate 100 mg capsule TAKE 1 CAPSULE BY MOUTH THREE TIMES A DAY NEEDED FOR COUGH 01/30 completed Not Available Not Available Not Available doxycycline monohydrate 100 mg capsule TAKE 1 CAPSULE BY MOUTH TWICE A DAY 01/30 completed Not Available Not Available Not Available gabapentin 300 mg capsule TAKE 2 CAPSULES BY ORAL ROUTE TWO TIMES DAILY FOR PAIN active Not Available Not Available No t Available codeine 10 mg-guaifene sin 100 mg/5 mL oral liquid TAKE 10 ML BY MOUTH EVERY 4 TO 6 HOURS NEEDED FOR COUGH 01/30 completed Not Available Not Available Not Available diazepam 5 mg tablet 5 MG ORALLY TWICE A DAY NEEDED FOR ANXIETY active Not Available Not Available No t Available amoxicillin 875 mg-potassiu m clavulanate 125 mg tablet TAKE 1 TABLET BY MOUTH TWICE A DAY FOR 10 DAYS 01/30 completed Not Available Not Available Not Available hydrocodone 10 mg-acetamin ophen 300 mg tablet 10mg/300m g 5 a day 01/30 completed Not Available Not Available Not Available omega-3 acid ethyl esters 1 gram capsule TAKE 2 CAPSULES BY MOUTH TWICE DAILY active Not Available Not Available No t Available aspirin 81mg 1/day 01/30 completed Not Available Not Available Not Available gabapentin 300mg 4/day 01/30 completed Not Available Not Available Not Available potassium chloride ER 20 mEq tablet,exte nded release TAKE 1 TABLET BY MOUTH ONCE DAILY active Not Available Not Available No t Available Vitals Date Recorded Body height Body weight Body mass index (BMI) Provider Name and Address Organization Details Last Updated DateTime 01/31/2024 167.64 cm 06495.83069 39738 g 23.2 kg/m2 Not Available Health Note 01/31/2024 07:57:24 Social History Question Answer Notes LastModified by Organizat ion Details LastModified Time Tobacco Smoking Status Current Every Day Smoker Not Available Health Note 01/30/2024 11:35:53 What Is Your Level Of Alcohol Consumption? Heavy [email or web address] Information not available 01/30/2024 What Is Your Level Of Caffeine Consumption? Moderate [email or web address] Information not available 01/30/2024 How Much Tobacco Do You Chew? None [email or web address] Information not available 01/30/2024 Do You Or Have You Ever Used E-cigarettes Or Vape? Never Used Electronic Cigarettes [email or web address] Information not available 01/30/2024 Number Of Pregnancies 3 [email or web address] Information not available 01/30/2024 Number Of Vaginal Deliveries 3 [email or web address] Information not available 01/30/2024 Number Of Caesarean Sections 0 [email or web address] Information not available 01/30/2024 Could You Be ? No [email or web address] Information not available 01/30/2024 What Was The Date Of Your Most Recent Tobacco Screening? 01/31/2024 [email or web address] Information not available 01/30/2024 Have You Ever Been Counseled For Unhealthy Alcohol Use? Yes Information not available 01/31/2024 What Is Your Relationship Status? [email or web address] Information not available 01/30/2024 Are You Sexually Active? No [email or web address] Information not available 01/30/2024 Do You Or Have You Ever Used Smokeless Tobacco? Never Used Smokeless Tobacco [email or web address] Information not available 01/30/2024 How Much Tobacco Do You Smoke? 1 PPW [email or web address] Information not available 01/30/2024 Do You Use Any Illicit Or Recreational Drugs? No [email or web address] Information not available 01/30/2024 Has Tobacco Cessation Counseling Been Provided? Yes Information not available 01/31/2024 On What Date Was Tobacco Cessation Counseling Provided? 01/31/2024 Information not available 01/31/2024 How Many Years Have You Smoked Tobacco? 2 [email or web address] Information not available 01/30/2024 Do You Or Have You Ever Used Any Other Forms Of Tobacco Or Nicotine? No Information not available 01/31/2024 How Many Days In The Past Year Have You Consumed 4 Or More Drinks? 365 [email or web address] Information no t available 01/30/2024 Sex: Female Functional Status None recorded. Mental Status None recorded. Family History Relationship Description Onset Age of this Age Resolved Age Notes Sister Family history of br east cancer Father Malignant tumor of u rinary bladder Father Family history of pr ostate cancer Medical History Condition Response High Blood Pressure N Kidney Stones Y Depression N Lung Disease N GERD/Acid Reflux N Diabetes N Sexually Transmitted Infection N Bleeding Disorder N Cancer N High Cholesterol N Heart Disease N Gynecological History Statement/Question Response If Post Menopausal, Age at Menopause 39 Hormone Therapy N Sexually Active? N Obstetrics History GPAL:G 0 P 0 0 0 0 Immunizations Vaccine Type Date Status Provider Name and Address Organization Details Recorded Time Pneumococcal conjugate PCV 13 10/03/2020 completed Da Meat rula, [facility] 01/31/2024 10:23:49 pneumococcal polysaccharide PPV23 10/03/2020 completed Not Available Health Note 2023 11:35:57 zoster live 10/03/2020 completed Not Available Health Note 0 01/30/2024 11:35:57 Influenza, injectable, MDCK, preservative free, quadrivalent 07/28/2017 completed Da Meath null, [facility] 01/31/2024 10:23:49 zoster recombinant 04/26/2020 completed Da Meath null, [facility] 01/31/2024 10:23:49 zoster recombinant 06/30/2020 completed Da Meath null, [facility] 01/31/2024 10:23:49 influenza, high-dose, quadrivalent 05/17/2022 completed Da Meath null, [facility] 01/31/2024 10:23:49 influenza, high-dose, quadrivalent 09/28/2021 completed Da Meath null, [facility] 01/31/2024 10:23:49 COVID-19, mRNA, LNP-S, PF, 100 mcg/0.5mL dose or 50 mcg/0.25mL dose 11/29/2020 completed Da Meath null, [facility] 01/31/2024 10:23:49 COVID-19, mRNA, LNP-S, PF, 100 mcg/0.5mL dose or 50 mcg/0.25mL dose 12/27/2020 completed Da Meath null, [facility] 01/31/2024 10:23:49 COVID-19, mRNA, LNP-S, PF, 100 mcg/0.5mL dose or 50 mcg/0.25mL dose 08/21/2021 completed Da Meath null, [facility] 01/31/2024 10:23:49 COVID-19, mRNA, LNP-S, bivalent, PF, 30 mcg/0.3 mL dose 09/02/2022 completed Da Meath null, [facility] 01/31/2024 10:23:49 pneumococcal polysaccharide PPV23 03/13/2020 completed Da Meath null, [facility] 01/31/2024 10:23:49 Tdap 08/23/2013 completed Da Meath null, [facility] 01/31/2024 10:23:49 Pneumococcal conjugate PCV 13 07/04/2021 completed Da Meath null, [facility] 01/31/2024 10:23:49 zoster live 06/15/2012 completed Da Meath null, [facility] 01/31/2024 10:23:49 Influenza, high dose seasonal 06/20/2018 completed Da Meath null, [facility] 01/31/2024 10:23:49 influenza, injectable, quadrivalent, preservative free 06/30/2020 completed Da Meath null, [facility] 01/31/2024 10:23:49 influenza, injectable, quadrivalent, preservative free 09/16/2019 completed Da Meath null, [facility] 01/31/2024 10:23:49 Past Encounters Encounter ID Performer Location Encounter Start Date Encounter Closed Date Diagnosis/Indication Diagnosis SNOMED-CT Code [id number] Nikko Davis MD [facility] [address] [place] [address] 01/31/2024 07:57:21 01/31/2024 14:31:01 Kidney stone [id number] Screening for alcohol abuse [id number] Health Concerns Section Related Observation LastModified by Organization Detai ls LastModified Time None Recorded Concern Status LastModified by Organization Details LastModified Time None Recorded Advance Directives Directive None Recorded Payers Encounter Date Sequence Insurance Name Policy Number Policy Frank Covered Member ID Frank Member ID Guarantor Name 01/31/2024 1 [facility]: (MEDICARE REPLACEMENT PPO) [id number] Ana Hebert [id number] Ana Hebert Notes Date Note Type Note Provider Name and Address Organization Details Recorded Time 01/31/2024 text/html HPI Notes: This is a 73 year old female who is referred for the evaluation and management of nephrolithiasis and gross hematuria. She developed new onset left flank pain and gross hematuria earlier this month. She subsequently underwent a CT of the abdomen and pelvis 01/24/2024 which revealed a 7 mm x 4 mm left renal pelvis stone, two additional 1-2 mm left renal stones, and a small right renal stone. Her hematuria has resolved. She denies flank pain. She has a prior history of stones as well. Nikko Davis MD [address] [place] [address],[address], [place], [address], [facility] 01/31/2024 12:51:16 OBGyn Episode No OBEpisode recorded.
--- OUTSIDE RECORDS SUMMARY | 2024-02-06 07:12 | XMS_ITS | Continuity of Care Document ---
Author Name Unknown Address [address] [place] [address] Phone [phone] Organization [facility], [facility] Address [address] [place] [address] Care Team Providers Care Django Developer Name Role Phone MADDY YUAN Primary Care [...] available Lab urinalysi s, dipstick 2023 024 [facility], [address], [address], [place], [address], 01/31/2024 16:47:56 urinalysi s, microscop ic 2023 024 [facility], [address], [address], [place], [address], 01/31/2024 16:48:00 Referral None recorded. Procedures None recorded. Surgeries cystoscop y, with ureterosc opy, with lithotrip sy, with insertion of ureteral stent (SURG) 2023 024 [email or web address] Not available 01/31/2024 16:05:11 Imaging None recorded. Medication Orders None recorded. Patient TargetsNo targets recorded. Patient Instructions Encounter Date Encounter Id Patient Instructions Last Modified By Organization Details Last Modified Time 01/31/2024 [id number] Left renal calculus: I had the opportunity [...] Range Abnormal Flag LastModifiedBy Organization Detail LastModifiedTime 01/27/20 24 01/24/2024 CT, abdom en + pelvi s, w/o contr ast No observ ation record ed. [email or web address] Not Available 01/27/2024 15:16:33 Result Notes None recorded. Problems Name Status Onset Date Resolution Date Notes Provider Name and Address Organization Details Recorded Time Irritable bowel syndrome Active 024 LALITA Preciado [facility] 08:58:19 Asthma Active 024 Da Meath null, [facility] 4 08:58:26 Hypercholesterolemia Active 024 Da Cifuentes null, [facility] 4 08:58:31 Kidney stone [facility] 4 08:58:39 Anxiety Active 024 [facility] 4 08:58:45 Depressive disorder Active 024 Da [facility], [facility] 4 09:00:38 Problem Notes None recorded. Procedures Surgical History Date Name Laterality Status Provider Name and Address Organization Details Recorded Time 01/31/20 24 COMPLEX VISIT completed Nikko Davis MD [address] [place], [place] [id number] [place] [address] 01/31/2024 12:48:10 01/31/20 24 Past Data Reviewed completed Nikko Davis MD [address] [place], [place] [id number] [place] [address] 01/31/2024 12:49:33 Laparoscopic cholecystectomy completed Not Available Health Note 01/30/2024 11:35:53 Fragmenting of kidney stone completed Not Available Health Note 01/30/2024 11:35:53 Imaging Results None recorded. Procedure Notes None recorded. Medical Equipment None Reported. Allergies Allergen ID Allergen Name Allergen Category Reaction Reaction Severity Criticality Documentation Date Start Date Code Code System Note Provider Name and Address Organization Details Recorded Time 576800 prednison e medicatio n Not available Not available Not available 01/27/2024 8640 [facility]55 986126 Substance with sulfonami de structure and antibacte rial mechanism of action (substanc e) medicatio n Not available Not available Not available 01/27/2024 04126 8003 SNOMED [facility] 08:57:59 242435 adhesive tape environme nt,medica tion Not available Not available Not available 01/27/2024 [facility] 08:58:05 Medications Name Sig Start Date [...] Details Last Updated DateTime 01/31/2024 167.64 cm 93805.88627 43025 g 23.2 kg/m2 Not Available Health Note [...] N Lung Disease N GERD/Acid Reflux N Sexually Transmitted Infection N Diabetes N Bleeding Disorder N Cancer N High Cholesterol N Heart Disease N Gynecological History Statement/Question Response If Post Menopausal, Age at Menopause 39 Hormone Therapy N Sexually Active? N Obstetrics History GPAL:G 0 P 0 0 0 0 Immunizations Vaccine Type Date Status Provider Name and Address Organization Details Recorded Time Pneumococcal conjugate PCV 13 10/03/2020 completed Da horta [facility] 01/31/2024 10:23:49 pneumococcal polysaccharide PPV23 10/03/2020 completed Not Available Health Note 2023 11:35:57 zoster live 10/03/2020 completed Not Available Health Note 0 01/30/2024 11:35:57 Influenza, injectable, MDCK, preservative free, quadrivalent 07/28/2017 completed Da Esauh rula [facility] 01/31/2024 10:23:49 zoster recombinant 04/26/2020 completed Da Meath null [facility] 01/31/2024 10:23:49 zoster recombinant 06/30/2020 completed Da Meath null [facility] 01/31/2024 10:23:49 influenza, high-dose, quadrivalent 05/17/2022 completed Da Meath null, [facility] 01/31/2024 10:23:49 influenza, high-dose, quadrivalent 09/28/2021 completed Da Meath null, [facility] 01/31/2024 10:23:49 COVID-19, mRNA, LNP-S, PF, 100 mcg/0.5mL dose or 50 mcg/0.25mL dose 11/29/2020 completed Da Meath null, [facility] 01/31/2024 10:23:49 COVID-19, mRNA, LNP-S, PF, 100 mcg/0.5mL dose or 50 mcg/0.25mL dose 12/27/2020 completed Da Meath null, [facility] 01/31/2024 10:23:49 COVID-19, mRNA, LNP-S, PF, 100 mcg/0.5mL dose or 50 mcg/0.25mL dose 08/21/2021 completed Da Meath null, [facility] 01/31/2024 10:23:49 COVID-19, mRNA, LNP-S, bivalent, PF, 30 mcg/0.3 mL dose 09/02/2022 completed Da Meath null, [facility] 01/31/2024 10:23:49 pneumococcal polysaccharide PPV23 03/13/2020 completed Da Meath null, [facility] 01/31/2024 10:23:49 Tdap 08/23/2013 completed Da Meath null, [facility] 01/31/2024 10:23:49 Pneumococcal conjugate PCV 13 07/04/2021 completed Da Meath null, [facility] 01/31/2024 10:23:49 zoster live 06/15/2012 completed Da Meath null, [facility] 01/31/2024 10:23:49 Influenza, high dose seasonal 06/20/2018 completed Da Meath null, [facility] 01/31/2024 10:23:49 influenza, injectable, quadrivalent, preservative free 06/30/2020 completed Da Meath null, [facility] 01/31/2024 10:23:49 influenza, injectable, quadrivalent, preservative free 09/16/2019 completed Da Ku rula [facility] 01/31/2024 10:23:49 Past Encounters Encounter ID Performer Location Encounter Start Date Encounter Closed Date Diagnosis/Indication Diagnosis SNOMED-CT Code [id number] Nikko Davis MD [facility] [address] [place] [address] 01/31/2024 07:57:21 01/31/2024 14:31:01 Kidney stone 49363558 Screening for alcohol abuse [id number] Health Concerns Section Related Observation LastModified by Organization Detai ls LastModified Time None Recorded Concern Status LastModified by Organization Details LastModified Time None Recorded Payers Encounter Date Sequence Insurance Name Policy Number Policy Frank Covered Member ID Frank Member ID Guarantor Name 01/31/2024 1 [place]) [id number] Ana Hebert [id number] Ana Hebert Notes Date Note Type Note [...] of stones as well. Nikko Davis MD [address] [place] [address],[address], [place], [address], [facility] 01/31/2024 12:51:16 OBGyn Episode No OBEpisode recorded.
--- OUTSIDE RECORDS SUMMARY | 2024-02-06 07:12 | XMS_ITS | Continuity of Care Document ---
Author Name Unknown Organization [facility] Address [address] [place] [address] Phone Care Team Providers Care Wellfield Technician Name Role Phone Yonatan Hunt Unavailable Unavailable Allergies, Adverse Reactions, Alerts Substance Reaction Status Criticality Sulfa (Sulfonamide Antibiotics) Unknown Active No Information OXYCODONE HCL Itching Active No Information Medications Medication Instructions Dosage Effective Dates (start - stop) Status Comments ASPIRIN (unknown strength) Not Available - Active LIPITOR (unknown strength) Not Available - Active CALCIUM (unknown strength) Not Available - Active VITAMIN D3 (unknown strength) Not Available - Active CYCLOBENZAPRINE HCL (unknown strength) Not Available - Active LAINE-D 24 HOUR (unknown strength) Not Available - Active GABAPENTIN (unknown strength) Not Available - Active NORCO (unknown strength) Not Available - A ctive MULTIVITAMINS (unknown strength) Not Available - Active LOVAZA (unknown strength) Not Available - Active PERCOCET (unknown strength) Not Available - Active Procedures Procedure Date Office/Outpatient Visit,[place], [facility] [place] Advance Directives Directive Yes / No Effective Date File Name No Information Encounters Encounter Description Practice Location Reason(s) For Visit Diagnoses Date Provider Providers Copied on Encounter Office/Outpat ient Visit,New, [facility], [address], [place], [place], [id number], tel:[phone] [facility] Spinal stenosis of lumbosacral region Amor Tam. [facility] [place], [address], [place], [place], [id number], [place]. tel:[phone] Referring Provider: Ben Barker, [facility] [address], [place], [address]. tel:[phone] [facility], [address], [place], [place], [id number], [place] tel:[phone] [facility] Lucero Contreras. [facility], [address], [place], [address], [place]. tel:[phone] Family History Family Member Type Diagnosis Age At Onset No Information Payers Payer name Insurance type Covered democrat ID Spencer aguiar(s) [employer] [facility] [id number] Social History Type Description Quantity Date Captured Comments Alcohol Use Details Unknown Caffeine Use Details Unknown Tobacco Use Status Smoking Status Former smoker Non-Smoking Tobacco Use Details : No Details Available : No Details Available Sex Female Vital Signs Date / Time: Height Weight BMI Pulse Rate Blood Pressure Temperature Respiratory Rate Body Surface Area Head Circumference Head Circ. Percentile Wt./Rashawn. Percentile BMI percentile Pulse Ox Inhaled Ox 3:30 PM 65.50 in 84 /min 137/49 mm[Hg] Chief Complaint And Reason For Visit No Information Reason For Referral Reason For Referral No Information History Of Present Illness Encounter Date Complaint History Of Prese nt Illness No Information Functional Status Date Functional Assessmen t No Information Instructions Date Instruction Additional Infor mation No Information Assessments Type Assessment Date assessment Spinal stenosis of lumbosacral r egion Patient Care Teams Name Effective Dates (start - stop) Status Members No Information
== END 2024-02-03 15:00 | disposition home or self-care (01) ==
LOC: NFLDREF 02-06 07:08
PROVIDERS: PCP Family Medicine; Referring Provider Family Medicine; Visit Provider Family Medicine
DX: N20.0 Calculus of kidney (principal)
CPT/HCPCS: 87086

== ENCOUNTER 2024-03-15 14:09 | Outpatient (CLI) | payer MEDICARE, SELFPAY ==
--- OUTSIDE RECORDS SUMMARY | 2024-03-19 16:15 | XMS_ITS | Clinical Summary ---
Author Organization [place] Address [address] [place] [address] Care Team Providers Care Transportation Technician Name Role Phone [facility]- Primary Care Provider Allergies Active Allergy [...] 10,000 Units by mouth daily (Patient takes [id number],000 international unit(s)) Active atorvastatin (LIPITOR) 10 MG [...] Comments Blood Pressure 141/85 12/04/2018 10:17 AM WATCH TRAIN ASSEMBLER Pulse 80 12/04/2018 9:30 AM WATCH TRAIN ASSEMBLER Temperature 36.3 ??C (97.3 ??F) 12/04/2018 9:30 AM CS T Respiratory Rate 12 12/04/2018 10:17 AM WATCH TRAIN ASSEMBLER Oxygen Saturation 92% 12/04/2018 10:17 AM WATCH TRAIN ASSEMBLER Inhaled Oxygen Concentration - - Weight 84.5 kg (186 lb 4.8 oz) 12/04/2018 6:31 A M WATCH TRAIN ASSEMBLER Height 166.4 cm (5' 5.5) 12/04/2018 6:31 AM WATCH TRAIN ASSEMBLER Body Mass Index 30.53 12/04/2018 6:31 AM WATCH TRAIN ASSEMBLER Plan of Treatment Not on file Care Teams Transportation Technician Relationship Specialty Start Date End Date [facility] [address] [place] [address] PCP - General 11/16/18
--- OUTSIDE RECORDS SUMMARY | 2024-03-19 16:15 | XMS_ITS | Clinical Summary ---
Author Organization [facility] Address [place], [place] [address] Care Team Providers Care Taco Maker Name Role Phone Rene Villanueva MD Primary Care Provider [phone] Allergies Active Allergy Reactions Criticality Noted Date Comments Adhesive Other - Describe In Comment Field 12/01/2018 Red and raw under tape, takes days to heal. Venom-Honey Bee *Unknown 02/08/2024 Cortisone Shortness Of Breath 09/07/2018 Oxycodone Hives,Itching 09/07/2018 Prednisone Dyspnea High 03/06/2017 Pt. States that Thinks she was allergic to contrast dye, not the prednisone Sulfa (Sulfonamide Antibiotics) *Unknown - Follow up needed 03/06/2017 Medications Medication Sig Dispensed Refills Start Date End Date Status atorvastatin (LIPITOR) 10 mg tablet Take 20 mg by mouth at bedtime. 0 07/17/2018 Active gabapentin (NEURONTIN) 600 mg tablet Take 600 mg by mouth at bedtime. 2 08/29/2018 Active HYDROcodone-acetami nophen, 10-325 mg, (NORCO 10-325) 10-325 mg per tablet TK 1 T PO Q 4 TO 6 H PRN P. MAXIMUM 5 TABLETS/DAY 0 08/31/2018 Active diazePAM (VALIUM) 5 mg tabletIndications:L eft ankle pain, unspecified chronicity Take 1 tablet by mouth every 4 hours if needed for Anxiety. Take 1-2 tablets 2 hours before MRI 3 tablet 06/21/2019 Active albuterol HFA (PRO-AIR; VENTOLIN; PROVENTIL) 90 mcg/actuation inhaler Inhale 2 Puffs by mouth every 6 hours. Active cyclobenzaprine (FLEXERIL) 10 mg tablet take 1 tablet by oral route every day for spasms 11/23/2023 Active melatonin 5 mg capsule Take 5 mg by mouth. Activ e aspirin (ECOTRIN) 81 mg enteric coated tablet Take 81 mg by mouth once daily with a meal. Active doxycycline (ADOXA) 100 mg tablet Take 100 mg by mouth two times daily. Active EPINEPHrine (EPIPEN) 0.3 mg/0.3 mL auto-injector Inject 1 Pen intramuscular each time if needed for Allergic Reaction. Active fexofenadine (LAINE) 180 mg tablet Take 180 mg by mouth once daily with a meal. Do not crush or chew. Active fluconazole (Diflucan) 150 mg tablet Take 150 mg by mouth once daily. Active fluticasone prp-sod.chl,bicarb 50 mcg- 0.9 % ksps Inhale into affected nostril(s). Active MULTIVITAMIN ORAL Take by mouth. Act dariel OMEGA-3 ACID ETHYL ESTERS ORAL Take by mouth. Active hydrocortisone 2.5% cream Apply topically to affected area(s) two times daily. Active ketoconazole 2% topical (NIZORAL) cream Apply topically to affected area(s) once daily. Active Active Problems Problem Noted Date Diagnosed Date Sprain of deltoid ligament of left ankle 019 Lower limb deformity, left 07/22/2019 Ankle instability, left 07/22/2019 Lumbar radiculopathy 07/22/2019 Complication of internal left knee prosthesis Lower limb length difference 12/28/2018 Posterior tibial tendonitis, left 12/28/2018 Encounters Date Type Department Care Team Description 02/22/2024 Transcribe Orders [facility] Imaging [address] [place] [address] Nikko Davis MD 02/09/2024 12:17 PM CDT - 02/09/2024 1:24 PM CDT Surgery [address] [address] Nikko Davis MD CYSTOSCOPY, LEFT URETEROSCOPY, LASER LITHOTRIPSY, LEFT URETERAL STENT PLACEMENT 02/09/2024 12:02 PM CDT Anesthesia Event [address] [address] Jose Maria Holloway MD Dahl, Ashley Rose Dragavon, MD 02/09/2024 10:16 AM CDT - 02/09/2024 3:08 PM CDT Hospital Encounter [facility] [address] [place] [address] Nikko Davis MD Kidney stone (Primary Dx) Discharge Disposition: Home Self Care 02/08/2024 Travel from Last 3 Months Immunizations Name Administration Dates Next Due Influenza, High-dose Inactivated 06/20/2018 Influenza,CCIIV4 PRESERV FREE 07/28/2017 Tdap 08/23/2013 Zoster (Zostavax-ZVL, live) 06/15/2012 Family History Medical History Relation Name Comments Diabetes Brother Cancer Father Heart failure Father Diabetes Mother Cancer-breast Sister Relation Name Status Comments Brother Father Mother Sister Alive diagnosed at 38 Social History Tobacco Use Types Packs/Day Years Used Date Smoking Tobacco: Former Cigarettes Q uit: 1995 Smokeless Tobacco: Never Tobacco Cessation:Counseling Given: Not Answered Alcohol Use Standard Drinks/Week Comments Not Currently 0 (1 standard drink = 0.6 oz pur e alcohol) Sex and Gender Information Value Date Recorded Sex Assigned at Not on file Gender Identity Not on file Sexual Orientation Not on file Obstetrics History Last Filed Vital Signs Vital Sign Reading Time Taken Comments Blood Pressure 157/77 02/09/2024 3:00 PM CDT Pulse 81 02/09/2024 3:00 PM CDT Temperature 36.5 ??C (97.7 ??F) 02/09/2024 3:00 PM CD T Respiratory Rate 16 02/09/2024 3:00 PM CDT Oxygen Saturation 93% 02/09/2024 3:00 PM CDT Inhaled Oxygen Concentration - - Weight 66.4 kg (146 lb 6.2 oz) 02/09/2024 11:01 AM CDT Height 167.6 cm (5' 6) 02/09/2024 11:01 AM CDT Body Mass Index 23.63 02/09/2024 11:01 AM CDT Plan of Treatment Upcoming Encounters Date Type Department Care Team (Late st Contact Info) Description 03/23/2024 11:15 AM CDT Ancillary Procedure [facility] [address] [id number] Health Maintenance Due Date Last Done Comments Depression screening for age 12+ 1964 Hepatitis C screening for ag e 18-79 1970 Colonoscopy through age 75 1997 Lipids for age 45-75 1997 Zoster (shingles) series for age 50+ (2 of 3) 08/10/2012 06/15/2012 DEXA/DXA scan for age 65+ 2017 Pneumococcal series for age 65+ (1 of 1 - PCV) 2017 Mammogram for age 45-75 12/26/2019 12/26/19 19, 11/18/2017, 03/29/2016, Additional history exists BMI (ht and wt on same day) for age 18+ 06/21/2020 06/21/2019, 09/07/2018 COVID-19 vaccine series ( season) 2023 09/02/2022, 08/21/2021, 12/27/2020, Additional history exists Tetanus booster 08/23/2023 08/23/2013 Influenza for age 65+ 06/03/2024 06/20/2018, 017 Tdap Completed 08/23/2013 Medical Devices Implanted Type Area Sound Equipment Mechanic Device Identifier Shelf Expiration Date Model / Serial / Lot Stent Uret [id number] Percuflex Hydroplus - [id number] Implanted:Qty: 1 on 02/09/2024 by Nikko Davis MD at [facility] Left: Ureter [facility] 08/29/2026 [id number] / / [id number] Procedures Procedure Name Priority Date/Time Associated Diagnosis Comments XR RETROGRADE PYELOGRAM W/WO KUB Routine 02/09/2024 12:45 PM CDT STONE ANALYSIS Today 02/09/2024 12:31 PM CDT SUPRAGLOTTIC-LMA Routine 02/09/2024 12:2 2 PM CDT CYSTOSCOPY URETEROSCOPY STONE ABLATION LASER 02/09/2024 11:52 AM CDT Left KIDNEY STONE Case Notes 60 MINS - T/FFLUOROSCOPY Special Needs 5'6, 67.1 kg, BMI 23.89Chronic pain on daily opioids SCAN-CARDIAC STRIP 02/09/2024 12 :00 AM CDT XR MAMMO BILAT SCREENING Routine 12/25/2018 12:03 PM CDT Screening mammogram, encounter for from Last 3 Months or Most Recently Relevant to Health Maintenance Results * XR RETROGRADE PYELOGRAM W/WO KUB (02/09/2024 12:45 PM CDT) Anatomical Region Laterality Modality KIDNEYS, Abdomen Computed Radiog jericho 02/09/2024 12:4 5 PM CDT Narrative 02/09/2024 2:27 PM CDT For Patients: As a result of the Cures Act, medical imaging exams and procedure reports are released immediately into your electronic medical record. You may view this report before your referring provider. If you have questions, please contact your health care provider. EXAM: XR RETROGRADE PYELOGRAM W/WO KUB LOCATION: [facility] MEDICAL IMAGING DATE: 02/09/2024 INDICATION: Left renal stone disease. COMPARISON: None. TECHNIQUE: Exam performed by urologist. RADIATION DOSE: WENDY 2.62 mGy FINDINGS: 3 images. Mild hydronephrosis on the left side. Left ureteral stent in good position. Procedure Note Alverto Garcia MD - 02/09/2024 For Patients: As a result of the Cures Act, medical imagingexams and procedure reports are released immediately into your electronicmedical record. You may view this report before your referring provider.If you have questions, please contact your health care provider. EXAM: XR RETROGRADE PYELOGRAM W/WO KUB LOCATION: [facility] MEDICAL IMAGING DATE: 02/09/2024 INDICATION: Left renal stone disease. COMPARISON: None. TECHNIQUE: Exam performed by urologist. RADIATION DOSE: WENDY 2.62 mGy FINDINGS: 3 images. Mild hydronephrosis on the left side. Left ureteralstent in good position. Nikko Davis MD GENERAL IMAGING * STONE ANALYSIS (02/09/2024 12:31 PM CDT) Source Comment 02/16/2024 1:[address] [facility] ([facility]) Comment:Left Kidney Color Brown 02/16/2024 1:[address] [facility] ([facility]) Size 2x1 mm 02/16/2024 1:[address] [facility] ([facility]) Comment: Multiple pieces received. ??Dimensions of the largest piece reported. Weight 2 mg 02/16/2024 1:[address] [facility] Composition Comment 02/16/2024 1:[address] [facility] ([facility]) Comment:Percentage (Represen ts the % composition) Calcium Oxalate Monoh 50 % 02/16/2024 1:[address] [facility] ([facility]) Calcium Oxalate Dihyd 50 % 02/16/2024 1:[address] [facility] Comment Comment 02/16/2024 1:[address] [facility] ([facility]) Comment: Calculus received wet. Wet calculi must be dried before analysis, which delays reporting of results. Leaving calculi wet (such as water, saline, blood, urine) may lead to changes in composition. Photo Comment 02/16/2024 1:[address] [facility] ([facility]) Comment:Photograph will foll ow under a separate cover Comment: Comment 02/16/2024 1:[address] [facility] ([facility]) Comment: Physician questions regarding Calculi Analysis contact [facility] at: [phone]. Please note: Comment 02/16/2024 1:[address] [facility] ([facility]) Comment: Calculi report will follow via computer, mail or psychiatric technician delivery. Disclaimer: Comment 02/16/2024 1:[address] [facility] ([facility]) Comment: This test was developed and its performance characteristics determined by [facility]. ??It has not been cleared or approved by the Food and Drug Administration. Calculi (stone) (Left Kidney Stone ) Non-Blood / Unknown 02/09/2024 12:31 PM CDT 02/09/2024 12:59 PM CDT Narrative [facility] ([facility]) - 02/16/2024 1:08 AM CDT Performed at: ??[address] ??[id number] Bending Frame Operator: Kate Mai PhD, Phone: ??[phone] Nikko Davis MD SEND OUTS [facility] ([facility]) [address] [place] [address] * Supraglottic (02/09/2024 12:22 PM CDT) Narrative Annmarie Lopez CRNA - 02/09/2024 12:22 PM CDT Annmarie Lopez CRNA ? 02/09/2024 12:22 PM Procedure: Supraglottic Patient location during procedure: OR Supraglottic Airway Properties Mask Ventilation: easy Type: i-gel Tube Size: 4 Placement Verification: auscultation and CO2 detection Assessment Assessment: atraumatic and dentition unchanged Annmarie Lopez CRNA ANESTHESIA PX NOTE ORDERABLES * SCAN-CARDIAC STRIP (02/09/2024 12:00 AM CDT) Narrative 02/09/2024 12:00 AM CDT Ordered by an unspecified provider. Other Clinical Staff OTHER * XR MAMMO BILAT SCREENING (12/25/2018 12:03 PM CDT) Anatomical Region Laterality Modality BREASTS, Breast Left, Breast Right Bilateral Mammography Impressions 12/26/2018 8:50 AM CDT ??There is no radiographic evidence for malignancy. ??Recommend annual mammograms. A lay language report of this examination will be provided to the patient. MAMMOGRAM ASSESSMENT: ??ACR 1 Negative Narrative 12/26/2018 8:50 AM CDT XR MAMMO BILAT SCREENING [[id number]] CLINICAL HISTORY: ??This is an asymptomatic 68 y.o. patient. INDICATION FOR EXAM: Mammogram Screening. TECHNIQUE: CC & MLO views were obtained. ??This digital study was evaluated with the assistance of Computer-Aided Detection. COMPARISON FILM: Yes 11/18/17 [facility] 03/29/16 [facility] FINDINGS: ??Mammographically, the breast tissue has scattered fibroglandular densities. ??There are no dominant masses, suspicious micro calcifications or areas of architectural distortion. Cecilia Smyth PA-C MAMMO from Last 3 Months or Most Recently Relevant to Health Maintenance Advance Directives * Full Code (Latest Code Status on File) Date Activated Date Inactivated Comments 02/09/2024 10:39 AM 02/09/2024 5:14 PM Should be dis cussed pre operatively with anesthesia or surgeon Question Answer Comments Code Status Discussion: Not Discussed Care Teams Taco Maker Relationship Specialty Start Date End Date Rene Villanueva MD [address] [address] PCP - General Family Practice 05/13/20
--- OUTSIDE RECORDS SUMMARY | 2024-03-19 16:16 | XMS_ITS | Referral Summary ---
Author Organization [facility] Address [address] [place] [id number] Care Team Providers Care Mangle Feeder Name Role Phone [facility]- Primary Care Provider Allergies Active Allergy [...] 10,000 Units by mouth daily (Patient takes [id number]=50,000 international unit(s)) Active atorvastatin (LIPITOR) 10 MG [...] Comments Blood Pressure 141/85 12/04/2018 10:17 AM CONVEX GRINDER Pulse 80 12/04/2018 9:30 AM CONVEX GRINDER Temperature 36.3 ??C (97.3 ??F) 12/04/2018 9:30 AM CS T Respiratory Rate 12 12/04/2018 10:17 AM CONVEX GRINDER Oxygen Saturation 92% 12/04/2018 10:17 AM CONVEX GRINDER Inhaled Oxygen Concentration - - Weight 84.5 kg (186 lb 4.8 oz) 12/04/2018 6:31 A M CONVEX GRINDER Height 166.4 cm (5' 5.5) 12/04/2018 6:31 AM CONVEX GRINDER Body Mass Index 30.53 12/04/2018 6:31 AM CONVEX GRINDER Plan of Treatment Not on file Care Teams Mangle Feeder Relationship Specialty Start Date End Date [facility]- [address] [place] [address] PCP - General 11/16/18
== END 2024-03-15 14:10 | disposition home or self-care (01) ==
LOC: NFLDREF 03-19 16:13
PROVIDERS: PCP Family Medicine; Visit Provider Family Medicine
DX: E78.5 Hyperlipidemia, unspecified (principal)
CPT/HCPCS: 80053; 80061

== ENCOUNTER 2024-08-21 11:42 | Outpatient (CLI) | payer MEDICARE, SELFPAY | END 2024-08-21 11:43 | disposition home or self-care (01) | PROVIDERS: PCP Family Medicine; Visit Provider Family Medicine | DX: G62.9 Polyneuropathy, unspecified (principal) | CPT/HCPCS: 80048; 82607 ==

== ENCOUNTER 2025-02-20 17:03 | Emergency (ER) | payer MEDICARE, SELFPAY ==
--- OUTSIDE RECORDS SUMMARY | 2025-02-20 17:05 | XMS_ITS | Clinical Summary ---
Author Organization [facility] Address [address] [place] [address] Care Team Providers Care Bolt Loader Name Role Phone [facility]- Primary Care Provider Allergies Active Allergy Reactions Criticality Noted Date Comments Codeine Itching 03/06/2017 Prednisone Shortness Of Breath High 03/06/2017 Pt. States that Thinks she was allergic to contrast dye, not the prednisone Sulfa Antibiotics Unknown 03/06/2017 Adhesive Tape Other (See Comments) 12/01/2018 Red and raw under tape, takes days to heal. Medications HYDROcodone-ac etaminophen (NORCO) 10-325 MG per tablet Take 1 tablet by mouth 5 times daily Active Fexofenadine HCl (LAINE PO) Take 1 tablet by mouth daily Active albuterol (PROAIR HFA/PROVENTIL HFA/VENTOLIN HFA) 108 (90 BASE) MCG/ACT Inhaler Inhale 2 puffs into the lungs every 6 hours Active gabapentin (NEURONTIN) 600 MG tablet Take 600 mg by mouth every evening Active Multiple Vitamins-Rowan als (MULTIVITAMIN ADULT PO) Take 1 tablet by mouth daily Active calcium carbonate (CALCIUM CARBONATE) 600 MG tablet Take 1 tablet by mouth daily Active cyclobenzaprin e (FLEXERIL) 10 MG tablet Take 10 mg by mouth 3 times daily as needed for muscle spasms Active cholecalcifero l (VITAMIN D3) 5000 units TABS tablet Take 10,000 Units by mouth daily (Patient takes [id number]=52,000 international unit(s)) Active atorvastatin (LIPITOR) 10 MG tablet Take 10 mg by mouth daily Active omega-3 acid ethyl esters (LOVAZA) 1 g capsule Take 1 g by mouth 2 times daily Active oxyCODONE-acet aminophen (PERCOCET) 5-325 MG tablet Take 1 tablet [...] Problems Problem Noted Date Diagnosed Date Cervicalgia Overview (03/17/2021): Created by Conversion Lumbar Radiculopathy At L5 Overview (03/17/2021): Created by Conversion Social History Tobacco Use Types Packs/Day Years Used Date Smoking Tobacco: Former Cigarettes Q uit: 10/03/1996 Smokeless Tobacco: Never Alcohol Use Standard Drinks/Week Comments Yes 0 (1 standard drink = 0.6 oz pur e alcohol) occassional Comments No Sex and Gender Information Value Date Recorded Sex Assigned at Not on file Legal Sex Female 3:42 AM SLOT FLOORMAN Gender Identity Not on file Sexual Orientation Not on file Last Filed Vital Signs Vital Sign Reading Time Taken Comments Blood Pressure 141/85 12/04/2018 10:17 AM SLOT FLOORMAN Pulse 80 12/04/2018 9:30 AM SLOT FLOORMAN Temperature 36.3 C (97.3 F) 12/04/2018 9:30 AM SLOT FLOORMAN Respiratory Rate 12 12/04/2018 10:17 AM SLOT FLOORMAN Oxygen Saturation 92% 12/04/2018 10:17 AM SLOT FLOORMAN Inhaled Oxygen Concentration - - Weight 84.5 kg (186 lb 4.8 oz) 12/04/2018 6:31 A M SLOT FLOORMAN Height 166.4 cm (5' 5.5) 12/04/2018 6:31 AM SLOT FLOORMAN Body Mass Index 30.53 12/04/2018 6:31 AM SLOT FLOORMAN Plan of Treatment Not on file Insurance MEDICARE Care Teams Bolt Loader Relationship Specialty Start Date End Date [facility]- [address] [address] PCP - General 11/16/18
--- OUTSIDE RECORDS SUMMARY | 2025-02-20 17:05 | XMS_ITS | Clinical Summary ---
Author Organization [facility] Address [address] [place] [id number] Care Team Providers Care Cloth Booker Name Role Phone Rene Villanueva MD Primary Care Provider [phone] Allergies Active Allergy Reactions Criticality Noted Date Comments Adhesive Other - Describe In Comment Field 12/01/2018 Red and raw under tape, takes days to heal. Venom-Honey Bee *Unknown 02/08/2024 Cortisone Shortness Of Breath 09/07/2018 Oxycodone Hives,Itching 09/07/2018 Prednisone Dyspnea High 03/06/2017 Pt. States that DrRosalia Thinks she was allergic to contrast dye, not the prednisone Sulfa (Sulfonamide Antibiotics) *Unknown - Follow up needed 03/06/2017 Medications atorvastatin (LIPITOR) 10 mg tablet Take 20 mg by mouth at bedtime. 0 8 Active gabapentin (NEURONTIN) 600 mg tablet Take 600 mg by mouth at bedtime. 2 8 Active HYDROcodone-lori taminophen, 10-325 mg, (NORCO 10-325) 10-325 mg per tablet TK 1 T PO Q 4 TO 6 H PRN P. MAXIMUM 5 TABLETS/DAY 0 8 Active diazePAM (VALIUM) 5 mg tabletIndicatio ns:Left ankle pain, unspecified chronicity Take 1 tablet by mouth every 4 hours if needed for Anxiety. Take 1-2 tablets 2 hours before MRI 3 tablet 9 Active albuterol HFA (PRO-AIR; VENTOLIN; PROVENTIL) 90 mcg/actuation inhaler Inhale 2 Puffs by mouth every 6 hours. Active cyclobenzaprine (FLEXERIL) 10 mg tablet take 1 tablet by oral route every day for spasms 4 Active melatonin 5 mg capsule Take 5 mg by mouth. Active aspirin (ECOTRIN) 81 mg enteric coated tablet [...] mg by mouth once daily. Active fluticasone prp-sod.chl,bic arb 50 mcg- 0.9 % ksps Inhale into affected nostril(s). Active MULTIVITAMIN ORAL Take by mouth. Activ e OMEGA-3 ACID ETHYL ESTERS ORAL Take by mouth. 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 Gender Identity Not on file Sexual Orientation Not on file Obstetrics History Last Filed Vital Signs Vital Sign Reading Time Taken Comments Blood Pressure 157/77 02/09/2024 3:00 PM CDT Pulse 81 02/09/2024 3:00 PM CDT Temperature 36.5 C (97.7 F) 02/09/2024 3:00 PM CDT Respiratory Rate 16 02/09/2024 3:00 PM CDT Oxygen Saturation 93% 02/09/2024 3:00 PM CDT Inhaled Oxygen Concentration - - Weight 66.4 kg (146 lb 6.2 oz) 02/09/2024 11:01 AM CDT Height 167.6 cm (5' 6) 02/09/2024 11:01 AM CDT Body Mass Index 23.63 02/09/2024 11:01 AM CDT Plan of Treatment Health Maintenance Due Date Last Done Comments Depression screening for age 12+ 1964 Hepatitis C screening for ag e 18-79 1970 Colonoscopy through age 75 1997 Lipids for age 45-75 1997 Pneumococcal series for age 50+ (1 of 1 - PCV) 2002 Zoster (shingles) series for age 50+ (2 of 3) 08/10/2012 06/15/2012 DEXA/DXA scan for age 65+ 2017 Mammogram for age 45-75 12/26/2019 12/26/19 19, 11/18/2017, 03/29/2016, Additional history exists BMI (ht and wt on same day) for age 18+ 06/21/2020 06/21/2019, 09/07/2018 Tetanus booster 08/23/2023 08/23/2013 COVID-19 vaccine series ( season) 2024 09/02/2022, 08/21/2021, 12/27/2020, Additional history exists Influenza Vaccine (Season Ended) 2025 06/20/20 18, 07/28/2017 RSV vaccine for adults or (1 - 1-dose 75+ series) 2027 Tdap Completed 08/23/2013 Medical Devices Implanted Type Area Qa Automation Developer Device Identifier Shelf Expiration Date Model / Serial / Lot Stent Uret [id number] Percuflex Hydroplus - [id number] Implanted:Qty: 1 on 02/09/2024 by Nikko Davis MD at [facility] Left: Ureter [facility] 08/29/2026 [id number] / [id number] Procedures Procedure Name Priority Date/Time Associated Diagnosis Comments XR MAMMO BILAT SCREENING Routine 12/25/2018 12:03 PM CDT Screening mammogram, encounter for from Last 3 Months or Most Recently Relevant to Health Maintenance Results * XR MAMMO BILAT SCREENING (12/25/2018 12:03 PM CDT) Anatomical Region Laterality Modality BREASTS, Breast Left, Breast Right Bilateral Mammography Impressions 12/26/2018 8:50 AM CDT There is no radiographic evidence for malignancy. Recommend annual mammograms. A lay language report of this examination will be provided to the patient. MAMMOGRAM ASSESSMENT: ACR 1 Negative Narrative 12/26/2018 8:50 AM CDT XR MAMMO BILAT SCREENING [[id number]] CLINICAL HISTORY: This is an asymptomatic 68 y.o. patient. INDICATION FOR EXAM: Mammogram Screening. TECHNIQUE: CC & MLO views were obtained. This digital study was evaluated with the assistance of Computer-Aided Detection. COMPARISON FILM: Yes 11/18/17 [facility] 03/29/16 [facility] FINDINGS: Mammographically, the breast tissue has scattered fibroglandular densities. There are no dominant masses, suspicious micro calcifications or areas of architectural distortion. Cecilia Smyth PA-C MAMMO Final Result from Last 3 Months or Most Recently Relevant to Health Maintenance Insurance BLUE CROSS MEDICARE ADVANTAGE MR MEDICARE PART A HB ONLY Advance Directives * Full Code (Latest Code Status on File) Date Activated Date Inactivated Comments 02/09/2024 10:39 AM 02/09/2024 5:14 PM Should be dis cussed pre operatively with anesthesia or surgeon Question Answer Comments Code Status Discussion: Not Discussed Care Teams Cloth Booker Relationship Specialty Start Date End Date Rene Villanueva MD [address] [place] [address] PCP - General Family Practice 05/13/20
--- OUTSIDE RECORDS SUMMARY | 2025-02-20 17:05 | XMS_ITS | Data Portability ---
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 Not available 01/31/2024 12:49:47 04/10/2024 04/10/2024 73 year old female with nephrolithiasi s. Not available 04/10/2024 11:32:05 Plan of Treatment Reminders Order Date Submit Date Provider Last Modified By Organization Details Last Modified Time Details Appointments None recorded. Lab urinalysis , dipstick 2023 024 [facility], [address], [place], [address], 16:47:56 urinalysis , microscopi c 2023 024 [facility], [address], [place], [address], 16:48:00 Referral None recorded. Procedures None recorded. Surgeries cystoscopy , with ureterosco py, with lithotrips y, with insertion of ureteral stent (SURG) 2023 024 jayce Not available 08:14:03 Imaging US, kidney - DUE APRIL 20252023 024 VOLODYMYR [facility], [address], [place], [address], 13:04:26 Medication Orders None recorded. Patient TargetsNo targets recorded. Patient Instructions Encounter Date Encounter Id Patient Instructions Last Modified By Organization Details Last Modified Time 01/31/2024 [id number] Left renal calculus: I had the opportunity [...] will schedule this. Not available 01/31/2024 12:51:06 04/10/2024 [id number] Nephrolithiasis: I reviewed her ultrasound. I certainly think the right side is artifact given her CT showing no stones on that side pre-surgery. I think the left may be capturing small residual fragments, but may also be artifact. Regardless she is asymptomatic and there is no obstruction so I recommend we observe. We discussed general fluid and dietary guidelines to help prevent further stone formation includin.) Fluid consumption of preferably water to make at least 2.5 L/day of urine 2.) Low sodium consumption (less than 2,300mg/day). Dietary salt intake is linked to calcium excretion. 3.) Moderate calcium consumption (up to 1,000 to 1,200mg/day). Avoid calcium restriction - this has been shown to increase the risk of stone formation 4.) Low fat and moderate animal protein consumption (meats, fish, poultry, eggs) with increased intake of fruits and vegetables 5.) Limit consumption of oxalate rich foods - spinach, Northern Irish chard, tea, chocolate, dark miguelangel, tree nuts, strawberries, rhubarb, and to avoid excess vitamin C intake 6.) 1 oz of lemon juice daily for citrate supplementation We discussed the role of metabolic evaluation but she declined for now. I will see her back in 1 year with a renal ultrasound. Not available 04/10/2024 11:33:31 Reason for Referral None Reported. Results Created Date Observation Date Name Description Value Unit Range Abnormal Flag Note LastModifiedBy Organization Detail LastModifiedTime 01/31/20 24 01/31/2024 [facility] WITHO UT MICRO - CS URISC AN blood - uriscan LARGE negati ve abnormal Not Available [facility] [address], [address], 01/31/2024 16:47:56 01/31/20 24 01/31/2024 UA WITHO UT MICRO - CS URISC AN bilirubin - uriscan NEGATI VE mg/dL negati ve Not Available [facility] [address] [facility] [address], [place], [address], 01/31/2024 16:47:56 01/31/20 24 01/31/2024 UA WITHO UT MICRO - CS URISC AN urobilinogen - uriscan NORMAL mg/dL normal Not Available [facility] [address] [facility] [address], [place], [address], 01/31/2024 16:47:56 01/31/20 24 01/31/2024 UA WITHO UT MICRO - CS URISC AN ketones - uriscan NEGATI VE mg/dL negati ve Not Available [facility] [address] [facility] [address], [place], [address], 01/31/2024 16:47:56 01/31/20 24 01/31/2024 UA WITHO UT MICRO - CS URISC AN protein - uriscan 30 mg/dL negati ve abnormal Not Available [facility] [address] [place] [address] [address], [place], [address], 01/31/2024 16:47:56 01/31/20 24 01/31/2024 UA WITHO UT MICRO - CS URISC AN nitrites - uriscan NEGATI VE negati ve Not Available [facility] [address] [place] [address] [address], [place], [address], 01/31/2024 16:47:56 01/31/20 24 01/31/2024 UA WITHO UT MICRO - CS URISC AN glucose - uriscan NEGATI VE mg/dL negati ve Not Available [facility] [address] [place] [address] [address], [place], [address], 01/31/2024 16:47:56 01/31/20 24 01/31/2024 UA WITHO UT MICRO - CS URISC AN pH - uriscan 5.50 5.00-9 .00 Not Available [facility] [address] [place] [address] [address], [place], [address], 01/31/2024 16:47:56 01/31/20 24 01/31/2024 UA WITHO UT MICRO - CS URISC AN sp. gravity - uriscan <=1.01 1.01-1 .03 Not Available [facility] [address] [place] [address] [address], [place], [address], 01/31/2024 16:47:56 01/31/20 24 01/31/2024 UA WITHO UT MICRO - CS URISC AN leukocytes - uriscan NEGATI VE negati ve Not Available [facility] [address] [facility] [address], [place], [address], 01/31/2024 16:47:56 01/31/20 24 01/31/2024 UA WITHO UT MICRO - CS URISC AN color - uriscan YELLOW lt. yellow ;yello w Not Available [facility] [address] [facility] [address], [place], [address], 01/31/2024 16:47:56 01/31/20 24 01/31/2024 UA WITHO UT MICRO - CS URISC AN clarity - uriscan CLEAR clear Not Available [facility] [address] [facility] [address], [place], [address], 01/31/2024 16:47:56 01/31/20 24 01/31/2024 UA WITHO UT MICRO - CS URISC AN total urine volume (mL) 50 /mL ----- ----- ----- ----- ----- ----- ----- ----- ----- ----- ----- ----- ----- ----- ---- *Madhavi fernandez note the follo wing minim um quant ities for addit ional urine testi ng: - Atypi cals: 3 mL - Cytol ogy: 20 mL - GC/CH : 2 mL - FISH: 30 mL - Atypi cals w/ GC/CH : 5 mL - Cytol ogy PLUS FISH: 50 mL - Urine Cultu re: 3 mL ----- ----- ----- ----- ----- ----- ----- ----- ----- ----- ----- ----- ----- ----- ---- This lab resul t is being provi ded to you and your provi kari at the same time in compl iance with the Centu ry Cures Act. Your provi kari may not have had time to revie w and make recom menda tions based on the resul t. Pleizzy e allow up to one week for provi kari revie w. Not Available [facility] [address] [facility] [address], [place], [address], 01/31/2024 16:47:56 01/31/20 24 01/31/2024 UA MICRO SCOPI C U-WBC 0 - 2 [hpf] 0 - 2 Not Available [facility] [address] [facility] [address], [place], [address], 01/31/2024 16:47:59 01/31/20 24 01/31/2024 UA MICRO SCOPI C U-RBC 10 - 25 [hpf] 0 - 2 abnormal Not Available [facility] [address] [facility] [address], [place], [address], 01/31/2024 16:47:59 01/31/20 24 01/31/2024 UA MICRO SCOPI C bacteria RARE [hpf] none;r are Not Available [facility] [address] [facility] [address], [place], [address], 01/31/2024 16:47:59 01/31/20 24 01/31/2024 UA MICRO SCOPI C squamous epi SMALL /lpf negati ve,sma ll This lab resul t is being provi ded to you and your provi kari at the same time in compl iance with the Centu ry Cures Act. Your provi kari may not have had time to revie w and make recom menda tions based on the resul t. Afsaneh e allow up to one week for provi kari revie w. Not Available [facility] [address] [facility] [address], [place], [address], 01/31/2024 16:47:59 01/27/20 24 01/24/2024 CT, abdom en + pelvi s, w/o contr ast No observ ation record ed. [email or web address] Not Available 01/26 15:16:33 04/02/20 24 04/02/2024 US, Sheila ruiz ation record ed. [facility] [address], [place], [address], 04/02/2024 18:16:05 Result Notes None recorded. Problems Name Problem SNOMED Code Status Onset Date Resolution Date Notes Provider Name and Address Organization Details Recorded Time Irritable bowel syndrome 31445162 Active 2023 Da Meath null, [facility] 4 08:58:19 Asthma 366942413 Active 2023 Da Meath null, [facility] 4 08:58:26 Hypercholester olemia 41711888 Active 2023 Da Meath null, [facility] 4 08:58:31 Kidney stone 88714043 Active 2023 Da Meath null, [facility] 4 08:58:39 Anxiety 36693091 Active 2023 Da Meath null, [facility] 4 08:58:45 Depressive disorder 71801584 Active 2023 Da Meat null, [facility] 4 09:00:38 Problem Notes None recorded. Procedures Surgical History Date Name Laterality Status Provider Name and Address Organization Details Recorded Time 04/10/20 24 COMPLEX VISIT completed Nikko Davis MD [address] [place] [address],[address], [address], [facility] 04/10/2024 11:30:36 04/10/20 24 Past Data Reviewed completed Nikko Davis MD [address] [place] [address],[address] [place] [address], [address], [facility] 04/10/2024 11:30:58 01/31/20 24 COMPLEX VISIT completed Nikko Davis MD [address] [place] [address],[address], [address], [facility] 01/31/2024 12:48:10 01/31/20 24 Past Data Reviewed completed Nikko Davis MD [address] [place] [address],[address], [address], [facility] 01/31/2024 12:49:33 Laparoscopic cholecystectomy completed Not Available Health Note 01/30/2024 11:35:53 Fragmenting of kidney stone completed Not Available Health Note 01/30/2024 11:35:53 Imaging Results Imaging Date Name Status LastModified by Organiz ation Details LastModified Time 01/24/2024 CT, abdomen + pelvis, w/o contrast completed [email or web address] Information not available 01/27/2024 15:16:33 04/02/2024 US, kidney completed [facility] [address] [facility] [place], [address], 04/02/2024 18:16:05 Procedure Notes None recorded. Medical Equipment None Reported. Allergies Allergen ID Allergen Name Allergen Category Reaction Reaction Severity Criticality Documentation Date Start Date Code Code System Note Provider Name and Address Organization Details Recorded Time 238307 prednison e medicatio n Not available Not available Not available 01/27/2024 8640 RxNorm Da horta [facility] 4 08:57:55 081357 Substance with sulfonami de structure and antibacte rial mechanism of action (substanc e) medicatio n Not available Not available Not available 01/27/2024 05392 8003 SNOMED Da horta [facility] 4 08:57:59 464805 adhesive tape environme nt,medica tion Not available Not available Not available 01/27/2024 76339 UNK Da Cifuentes rula [facility] 4 08:58:05 Medications Name Sig Start Date Stop Date Status Note LastModified by Organization Details LastModified Time cyclobenzap rine 10 mg tablet TAKE 1 TABLET BY ORAL ROUTE EVERY DAY FOR SPASMS active Not Available Not Available No t Available doxycycline hyclate 100 mg capsule TAKE 1 CAPSULE BY MOUTH TWICE A DAY 01/30 completed Not Available Not Available Not Available atorvastati n 20 mg tablet TAKE 1 TABLET BY MOUTH EVERY EVENING active Not Available Not Available No t Available azithromyci n 250 mg tablet TAKE 2 TABLETS BY MOUTH TODAY, THEN TAKE 1 TABLET DAILY FOR 4 DAYS 01/30 completed Not Available Not Available Not Available fluconazole 150 mg tablet TAKE 1 TABLET BY MOUTH EVERY 3 DAYS FOR 2 DOSES. MAY REPEAT 2ND DOSE IN 72 HRS IF SYMPTOMS PERSIST 04/03 completed Not Available Not Available Not Available prednisone 20 mg tablet TAKE 1 [...] 5 TABLETS PER DAY FOR CHRONIC PAIN 04/03 completed Not Available Not Available Not Available aspirin 81 mg tablet,adela yed release [...] Not Available Not Available No t Available montelukast 10 mg tablet TAKE 1 TABLET BY MOUTH EVERY DAY active Not Available Not Available No t Available codeine 10 mg-guaifene sin 100 mg/5 mL oral liquid TAKE 10 ML BY MOUTH EVERY 4 TO 6 HOURS NEEDED FOR COUGH 01/30 completed Not Available Not Available Not Available diazepam 5 mg tablet TAKE 5 MG BY MOUTH TWICE A DAY NEEDED FOR ANXIETY active [...] Details Last Updated DateTime 01/31/2024 167.64 cm 63092.93332 90140 g 23.2 kg/m2 Not Available Health Note 01/31/2024 07:57:24 Date Recorded Body height Body mass index (BMI) Body weight Provider Name and Address Organization Details Last Updated DateTime 04/10/2024 167.64 cm 23.2 kg/m2 25214.3 g Da Meath [place] [facility] 04/10/2024 11:12:00 Social History Question Answer Notes LastModified by Organizat ion Details LastModified Time Tobacco Smoking Status Current Every Day Smoker Not Available Health Note 01/30/2024 11:35:53 What Is Your Level Of Caffeine Consumption? Moderate [email or web address] Information not available 01/30/2024 How Much Tobacco Do You Chew? None [email or web address] Information not available 01/30/2024 Number Of Pregnancies 3 [email or web address] Information not available 01/30/2024 Number Of Vaginal Deliveries 3 [email or web address] Information not available 01/30/2024 Number Of Caesarean Sections 0 [email or web address] Information not available 01/30/2024 Could You Be ? No [email or web address] Information not available 01/30/2024 What Was The Date Of Your Most Recent Tobacco Screening? 04/10/2024 Information not available 04/10/2024 Have You Ever Been Counseled For Unhealthy Alcohol Use? Yes Information not available 01/31/2024 What Is Your Relationship Status? [email or web address] Information not available 01/30/2024 Are You Sexually Active? No [email or web address] Information not available 01/30/2024 How Much Tobacco Do You Smoke? 1 PPW [email or web address] Information not available 01/30/2024 Has Tobacco Cessation Counseling Been Provided? Yes Information not available 01/31/2024 On What Date Was Tobacco Cessation Counseling Provided? 04/10/2024 Information not available 04/10/2024 How Many Years Have You Smoked Tobacco? 2 [email or web address] Information not available 01/30/2024 How Many Days In The Past Year Have You Consumed 4 Or More Drinks? 365 [email or web address] Information no t available 01/30/2024 Sex: Unknown Functional Status Question Answer Note LastModified by Organizat ion Details LastModified Time Do you use any illicit or recreational drugs? No [email or web address] Information not available 01/30/2024 Do you or have you ever used any other forms of tobacco or nicotine? No Information not available 01/31/2024 What is your level of alcohol consumption? Heavy [email or web address] Information not available 01/30/2024 Do you or have you ever used smokeless tobacco? Never used smokeless tobacco [email or web address] Information not available 01/30/2024 Do you or have you ever used e-cigarettes or vape? Never used electronic cigarettes [email or web address] Information not available 01/30/2024 Mental Status None recorded. Family History Relationship Description Onset Age of this Age Resolved Age Notes LastModified by Organization Details LastModified Time Sister Family history of breast cancer ameath Not available 2023 09:01:24 Father Malignant neoplasm of urinary bladder ameath Not available 2023 09:01:38 Father Family history of malignant neoplasm of prostate ameath Not available 2023 09:01:46 Medical History Condition Response Sexually Transmitted Infection N Diabetes N Bleeding Disorder N High Blood Pressure N Kidney Stones Y Cancer N Lung Disease N Depression N High Cholesterol N GERD/Acid Reflux N Heart Disease N Gynecological History Statement/Question Response If Post Menopausal, Age at Menopause 39 Hormone Therapy N Sexually Active? N Obstetrics History GPAL:G 0 P 0 0 0 0 Immunizations Vaccine Type Date Status Note Provider Nam e and Address Organization Details Recorded Time Pneumococcal conjugate PCV 13 1 completed Da horta [facility] 01/31/2024 10:23:49 pneumococcal polysaccharide PPV23 1 completed Not Available Health Note 01/30/2024 11:35:57 zoster live 1 completed Not Available Health Note 01/30/2024 11:35:57 Influenza, MDCK, quadrivalent, PF 7 completed Da Meath rula [facility] 01/31/2024 10:23:49 zoster recombinant 0 completed Da Esauh rula [facility] 01/31/2024 10:23:49 zoster recombinant 0 completed Da Meath null, [facility] 01/31/2024 10:23:49 Influenza, high-dose, quadrivalent, PF 2 completed Da Meath null, [facility] 01/31/2024 10:23:49 Influenza, high-dose, quadrivalent, PF 1 completed Ad Meath null, [facility] 01/31/2024 10:23:49 COVID-19, mRNA, LNP-S, PF, 100 mcg/0.5mL dose or 50 mcg/0.25mL dose 1 completed Da Meath null, [facility] 01/31/2024 10:23:49 COVID-19, mRNA, LNP-S, PF, 100 mcg/0.5mL dose or 50 mcg/0.25mL dose 1 completed Da Meath null, [facility] 01/31/2024 10:23:49 COVID-19, mRNA, LNP-S, PF, 100 mcg/0.5mL dose or 50 mcg/0.25mL dose 1 completed Da Meath null, [facility] 01/31/2024 10:23:49 COVID-19, mRNA, LNP-S, bivalent, PF, 30 mcg/0.3 mL dose 2 completed Da Meath null, [facility] 01/31/2024 10:23:49 pneumococcal polysaccharide PPV23 0 completed Da Meath null, [facility] 01/31/2024 10:23:49 Tdap 3 completed Da Meath null, [facility] 01/31/2024 10:23:49 Pneumococcal conjugate PCV 13 1 completed Da Meath null, [facility] 01/31/2024 10:23:49 zoster live 2 completed Da Meath null, [facility] 01/31/2024 10:23:49 Influenza, high-dose, trivalent, PF 8 completed Da Meath null, [facility] 01/31/2024 10:23:49 Influenza, split virus, quadrivalent, PF 0 completed Da Meath null, [facility] 01/31/2024 10:23:49 Influenza, split virus, quadrivalent, PF 9 completed Da Meath null, [facility] 01/31/2024 10:23:49 Tdap 4 completed Da Meath null, [facility] 04/10/2024 11:09:05 Past Encounters Encounter ID Performer Location Encounter Start Date Encounter Closed Date Diagnosis/Indication Diagnosis SNOMED-CT Code Diagnosis ICD10 Code Diagnosis Note [id number] Nikko Davis MD [facility] [address] [place] [address] 01/31/2024 07:57:21 01/31/2024 14:31:01 Kidney stone 60167739 N20.0 Screening for alcohol abuse 514487548 Z13.39 [id number] Nikko Davis MD [facility] [address] [place] [address] 04/10/2024 08:09:23 04/10/2024 11:34:40 Kidney stone 01714480 N20.0 Health Concerns Section Related Observation LastModified by Organization Detai ls LastModified Time None Recorded Concern Status LastModified by Organization Details LastModified Time None Recorded Advance Directives Directive None Recorded Payers Insurance Date Sequence Insurance Name Policy Number Policy Frank Covered Member ID Frank Member ID Guarantor Name 04/20/2024 1 [place] [id number] Ana Hebert [id number] Ana Hebert 02/22/2024 1 [place] [employer] Ana Hebert [id number] Ana Hebert Notes Date Note Type Note Provider Name and Address Organization Details Recorded Time 01/31/2024 text/html This is a 73 yea r old female who is referred for the evaluation and management of nephrolithiasis and gross hematuria. She developed new onset left flank pain and gross hematuria earlier this month.She subsequently underwent a CT of the abdomen and pelvis 01/24/2024 which revealed a 7 mm x 4 mm left renal pelvis stone, two additional 1-2 mm left renal stones, and a small right renal stone.Her hematuria has resolved.She denies flank pain.She has a prior history of stones as well. Nikko Davis MD [address] [facility],[address], [place], [address], [facility] 01/31/2024 12:51:16 04/10/2024 text/html This is a 73 yea r old female who is here for the ongoing management of nephrolithiasis. She developed new onset left flank pain and gross hematuria earlier this month.She subsequently underwent a CT of the abdomen and pelvis 01/24/2024 which revealed a 7 mm x 4 mm left renal pelvis stone, two additional 1-2 mm left renal stones, and a small right renal stone.She is now status post cystoscopy, left ureteroscopy, laser lithotripsy, and left ureteral stent placement 02/09/2024.Stone analysis: calcium oxalate monohydrate 50%, calcium oxalate dihydrate 50%She removed her own stent at home.She underwent a renal ultrasound 04/02/2024 which showed possible 7 mm bilateral renal calculi.She denies flank pain or gross hematuria. Nikko Davis MD [address] [facility],[address], [place], [address], [facility] 04/10/2024 11:33:58 OBGyn Episode No OBEpisode recorded.
--- OUTSIDE RECORDS SUMMARY | 2025-02-20 17:05 | XMS_ITS | Data Portability ---
Author Organization [place] [facility], [facility] Address [address] [place] [address] Care Team Providers Care Communications Manager Name Role Phone MADDY YUAN Primary Care Provider [phone] Assessment Encounter Date Assessment Date Assessment LastModified [...] recorded. Lab urinalysis , dipstick 2023 024 [facility], [address], [place], [address], 16:47:56 urinalysis , microscopi c 2023 024 [facility], [address], [place], [address], 16:48:00 Referral None recorded. Procedures None recorded. Surgeries cystoscopy , with ureterosco py, with lithotrips y, with insertion of ureteral stent (SURG) 2023 024 [email or web address] Not available 08:14:03 Imaging US, kidney - DUE APRIL 20252023 024 [facility], [address], [place], [address], 13:04:26 Medication Orders None recorded. Patient TargetsNo targets recorded. Patient Instructions Encounter Date Encounter Id Patient Instructions Last Modified By Organization Details Last Modified Time 01/31/2024 [id number] Left renal calculus: I had the opportunity [...] schedule this. Not available 01/31/2024 12:51:06 04/10/2024 [id number] Nephrolithiasis: I reviewed her ultrasound. I certainly [...] consumption of oxalate rich foods - spinach, [place] chard, tea, chocolate, dark miguelangel, tree nuts, [...] uriscan LARGE negati ve abnormal Not Available [facility] [address], [address], 01/31/2024 16:47:56 01/31/20 24 01/31/2024 UA WITHO UT MICRO - CS URISC AN bilirubin - uriscan NEGATI VE mg/dL negati ve Not Available [facility] [address] [facility] [address], [place], [address], 01/31/2024 16:47:56 01/31/20 24 01/31/2024 UA WITHO UT MICRO - CS URISC AN urobilinogen - uriscan NORMAL mg/dL normal Not Available [facility] [address] [facility] [address], [place], [address], 01/31/2024 16:47:56 01/31/20 24 01/31/2024 UA WITHO UT MICRO - CS URISC AN ketones - uriscan NEGATI VE mg/dL negati ve Not Available [facility] [address] [facility] [address], [place], [address], 01/31/2024 16:47:56 01/31/20 24 01/31/2024 UA WITHO UT MICRO - CS URISC AN protein - uriscan 30 mg/dL negati ve abnormal Not Available [facility] [address] [place] [address] [address], [place], [address], 01/31/2024 16:47:56 01/31/20 24 01/31/2024 UA WITHO UT MICRO - CS URISC AN nitrites - uriscan NEGATI VE negati ve Not Available [facility] [address] [place] [address] [address], [place], [address], 01/31/2024 16:47:56 01/31/20 24 01/31/2024 UA WITHO UT MICRO - CS URISC AN glucose - uriscan NEGATI VE mg/dL negati ve Not Available [facility] [address] [place] [address] [address], [place], [address], 01/31/2024 16:47:56 01/31/20 24 01/31/2024 UA WITHO UT MICRO - CS URISC AN pH - uriscan 5.50 5.00-9 .00 Not Available [facility] [address] [place] [address] [address], [place], [address], 01/31/2024 16:47:56 01/31/20 24 01/31/2024 UA WITHO UT MICRO - CS URISC AN sp. gravity - uriscan <=1.01 1.01-1 .03 Not Available [facility] [address] [place] [address] [address], [place], [address], 01/31/2024 16:47:56 01/31/20 24 01/31/2024 UA WITHO UT MICRO - CS URISC AN leukocytes - uriscan NEGATI VE negati ve Not Available [facility] [address] [facility] [address], [place], [address], 01/31/2024 16:47:56 01/31/20 24 01/31/2024 UA WITHO UT MICRO - CS URISC AN color - uriscan YELLOW lt. yellow ;yello w Not Available [facility] [address] [facility] [address], [place], [address], 01/31/2024 16:47:56 01/31/20 24 01/31/2024 UA WITHO UT MICRO - CS URISC AN clarity - uriscan CLEAR clear Not Available [facility] [address] [facility] [address], [place], [address], 01/31/2024 16:47:56 01/31/20 24 01/31/2024 UA WITHO [...] for provi kari revie w. Not Available [facility] [address] [facility] [address], [place], [address], 01/31/2024 16:47:56 01/31/20 24 01/31/2024 UA MICRO SCOPI C U-WBC 0 - 2 [hpf] 0 - 2 Not Available [facility] [address] [facility] [address], [place], [address], 01/31/2024 16:47:59 01/31/20 24 01/31/2024 UA MICRO SCOPI C U-RBC 10 - 25 [hpf] 0 - 2 abnormal Not Available [facility] [address] [facility] [address], [place], [address], 01/31/2024 16:47:59 01/31/20 24 01/31/2024 UA MICRO SCOPI C bacteria RARE [hpf] none;r are Not Available [facility] [address] [facility] [address], [place], [address], 01/31/2024 16:47:59 01/31/20 24 01/31/2024 UA MICRO [...] for provi kari revie w. Not Available [facility] [address] [facility] [address], [place], [address], 01/31/2024 16:47:59 01/27/20 24 01/24/2024 CT, abdom en + pelvi s, w/o contr ast No observ ation record ed. [email or web address] Not Available 01/26 15:16:33 04/02/20 24 04/02/2024 US, Sheila ruiz ation record ed. [facility] [address], [place], [address], 04/02/2024 18:16:05 Result Notes None recorded. Problems Name Problem SNOMED Code Status Onset Date Resolution Date Notes Provider Name and Address Organization Details Recorded Time Irritable bowel syndrome 79378412 Active 2023 Da Meath null, [facility] 4 08:58:19 Asthma 003133312 Active 2023 Da Meath null, [facility] 4 08:58:26 Hypercholester olemia 62903661 Active 2023 Da Meath null, [facility] 4 08:58:31 Kidney stone 45956637 Active 2023 Da [facility]ath null, [facility] 08:58:39 Anxiety 19140851 Active 2023 Da Meath null, [facility] 4 08:58:45 Depressive disorder 56822630 Active 2023 Da Meat null, [facility] 4 09:00:38 Problem Notes None recorded. Procedures Surgical History Date Name Laterality Status Provider Name and Address Organization Details Recorded Time 04/10/20 24 COMPLEX VISIT completed Nikko Davis MD [address] [place] [address],[address], [address], [facility] 04/10/2024 11:30:36 04/10/20 24 Past Data Reviewed completed Nikko Davis MD [address] [place] [address],[address] [place] [address], [address], [facility] 04/10/2024 11:30:58 01/31/20 24 COMPLEX VISIT completed Nikko Davis MD [address] [place] [address],[address], [address], [facility] 01/31/2024 12:48:10 01/31/20 24 Past Data Reviewed completed Nikko Davis MD [address] [place] [address],[address], [address], [facility] 01/31/2024 12:49:33 Laparoscopic cholecystectomy completed Not Available Health Note 01/30/2024 11:35:53 Fragmenting of kidney stone completed Not Available Health Note 01/30/2024 11:35:53 Imaging Results Imaging Date Name Status LastModified by Organiz ation Details LastModified Time 01/24/2024 CT, abdomen + pelvis, w/o contrast completed [email or web address] Information not available 01/27/2024 15:16:33 04/02/2024 US, kidney completed [facility] [address] [facility] [facility], [address], 04/02/2024 18:16:05 Procedure Notes None recorded. Medical Equipment None Reported. Allergies Allergen ID Allergen Name Allergen Category Reaction Reaction Severity Criticality Documentation Date Start Date Code Code System Note Provider Name and Address Organization Details Recorded Time 038887 prednison e medicatio n Not available Not available Not available 01/27/2024 8640 RxNorm Da horta [facility] 4 08:57:55 783756 Substance with sulfonami de structure and antibacte rial mechanism of action (substanc e) medicatio n Not available Not available Not available 01/27/2024 88319 8003 SNOMED Da horta [facility] 4 08:57:59 910818 adhesive tape environme nt,medica tion Not available Not available Not available 01/27/2024 23591 UNK Da Cifuentes rula [facility] 4 08:58:05 Medications Name Sig Start [...] Details Last Updated DateTime 01/31/2024 167.64 cm 58437.50057 76890 g 23.2 kg/m2 Not Available Health Note 01/31/2024 07:57:24 Date Recorded Body height Body mass index (BMI) Body weight Provider Name and Address Organization Details Last Updated DateTime 04/10/2024 167.64 cm 23.2 kg/m2 33231.3 g Da Meath [place] - Min zeus [...] conjugate PCV 13 1 completed Da horta [facility] 01/31/2024 10:23:49 pneumococcal polysaccharide PPV23 1 completed Not Available Health Note 01/30/2024 11:35:57 zoster live 1 completed Not Available Health Note 01/30/2024 11:35:57 Influenza, MDCK, quadrivalent, PF 7 completed Da Meath rula [facility] 01/31/2024 10:23:49 zoster recombinant 0 completed Da Esauh rula [facility] 01/31/2024 10:23:49 zoster recombinant 0 completed Da Meath null, [facility] 01/31/2024 10:23:49 Influenza, high-dose, quadrivalent, PF 2 completed Da Meath null, [facility] 01/31/2024 10:23:49 Influenza, high-dose, quadrivalent, PF 1 completed Da Meath null, [facility] 01/31/2024 10:23:49 COVID-19, mRNA, LNP-S, PF, 100 mcg/0.5mL dose or 50 mcg/0.25mL dose 1 completed Da Meath null, [facility] 01/31/2024 10:23:49 COVID-19, mRNA, LNP-S, PF, 100 mcg/0.5mL dose or 50 mcg/0.25mL dose 1 completed Da Meath null, [facility] 01/31/2024 10:23:49 COVID-19, mRNA, LNP-S, PF, 100 mcg/0.5mL dose or 50 mcg/0.25mL dose 1 completed Da Meath null, [facility] 01/31/2024 10:23:49 COVID-19, mRNA, LNP-S, bivalent, PF, 30 mcg/0.3 mL dose 2 completed Da Meath null, [facility] 01/31/2024 10:23:49 pneumococcal polysaccharide PPV23 0 completed Da Meath null, [facility] 01/31/2024 10:23:49 Tdap 3 completed Da Meath null, [facility] 01/31/2024 10:23:49 Pneumococcal conjugate PCV 13 1 completed Da Meath null, [facility] 01/31/2024 10:23:49 zoster live 2 completed Da Meath null, [facility] 01/31/2024 10:23:49 Influenza, high-dose, trivalent, PF 8 completed Da Meath null, [facility] 01/31/2024 10:23:49 Influenza, split virus, quadrivalent, PF 0 completed Da Meath null, [facility] 01/31/2024 10:23:49 Influenza, split virus, quadrivalent, PF 9 completed Da Meath null, [facility] 01/31/2024 10:23:49 Tdap 4 completed Da Meath null, [facility] 04/10/2024 11:09:05 Past Encounters Encounter ID Performer Location Encounter Start Date Encounter Closed Date Diagnosis/Indication Diagnosis SNOMED-CT Code Diagnosis ICD10 Code Diagnosis Note [id number] Nikko Davis MD [facility] [address] [place] [address] 01/31/2024 07:57:21 01/31/2024 14:31:01 Kidney stone 38273174 N20.0 Screening for alcohol abuse 024794649 Z13.39 [id number] Nikko Davis MD [facility] [address] [place] [address] 04/10/2024 08:09:23 04/10/2024 11:34:40 Kidney stone 59525356 N20.0 Health Concerns Section Related Observation LastModified by Organization Detai ls LastModified Time None Recorded Concern Status LastModified by Organization Details LastModified Time None Recorded Advance Directives Directive None Recorded Payers Insurance Date Sequence Insurance Name Policy Number Policy Frank Covered Member ID Frank Member ID Guarantor Name 04/20/2024 1 [place] [id number] Ana Hebert [id number] Ana Hebert 02/22/2024 1 [place] [employer] Ana Hebert [id number] Ana Hebert Notes Date Note Type [...] stones as well. Nikko Davis MD [address] [facility], [place], [address], [facility] 01/31/2024 12:51:16 04/10/2024 text/html This is [...] or gross hematuria. Nikko Davis MD [address] [facility],[address], [place], [address], [facility] 04/10/2024 11:33:58 OBGyn Episode No OBEpisode recorded.
[2025-02-20 17:08] VITALS: BP 171/100; PULSE 112; RESP 12; TEMP 36.7; O2SAT 100; BMI 21.8
--- NOTE | 2025-02-20 17:17 | CRLHL7_ITS ---
For Patients: As a result of the Century Cures Act, medical imaging exams and procedure reports are released immediately into your electronic medical record. You may view this report before your referring provider. If you have questions, please contact your health care provider. INDICATION: Abdominal pain. TECHNIQUE: CT abdomen and pelvis acquired with 66 cc Isovue 370 IV contrast. COMPARISON: CT abdomen and pelvis 01/24/2024. FINDINGS: Lower chest: Unremarkable. Liver: Small medial right hepatic lobe cyst. Gallbladder and bile ducts: Mildly prominent bile ducts, likely secondary to post cholecystectomy state. Spleen: Unremarkable. Normal in size. No masses. Adrenal glands: Unremarkable. No nodules. Pancreas: Unremarkable. No mass or inflammation. Kidneys: Bilateral punctate nonobstructive renal calculi. No hydronephrosis. GI tract: Moderate colonic stool load. Mild colonic diverticulosis without evidence of diverticulitis. No evidence of obstruction. Normal appendix. Lymph nodes: No lymphadenopathy. Vasculature: Mild scattered atherosclerotic calcifications. Abdominal aorta is normal in caliber. Omentum/Peritoneum/Abdominal Wall: Unremarkable. No free air or significant free fluid. Pelvis: Status post hysterectomy. Bones: Lower lumbar spondylosis. IMPRESSION: 1. No acute abdominal or pelvic abnormality. 2. Punctate bilateral nonobstructive nephrolithiasis. No obstructive uropathy. 3. Mild colonic diverticulosis. 4. Moderate colonic stool load. Please note that all CT scans at this facility use dose modulation, iterative reconstruction, and/or weight-based dosing when appropriate to reduce radiation dose to as low as reasonably achievable. Dictated by Errol Moss MD @ 02/20/2025 10:35:35 PM (Electronically Signed)
--- NOTE | 2025-02-20 17:21 | ED.GENADULT ---
HPI - General Adult General Chief complaint: Shortness of Breath/Dyspnea Stated complaint: possible bowel blockage Time Seen by Provider: 02/20/25 17:05 History of Present Illness HPI narrative: PATIENT IS A 74 WHITE FEMALE ON CHRONIC NARCOTICS FOR BACK PAIN SHE TAKES HYDROCODONE, and for the last couple of days has had increasing abdominal pain epigastric pain. She had an x-ray done at the urgent care which showed increased moderate stool in her colon so she her right side of her colon. She describes nose for pain in epigastrium and in their periumbilical area. She denies fever chills or cough denies chest pain. The patient had an EKG that looked unchanged from prior recorded in the urgent care. She after discussion with urgent care provider decided to come to the ER. No fevers, chills, dysuria frequency, no anterior chest pain. Does report it is hard to breathe because of her stomach, does not feel it is distended. Related Data Home Medications ?Medication ?Instructions ?Recorded ?Confirmed albuterol sulfate 90 mcg/actuation 2 inhalation PRN 08/02/22 02/20/25 aerosol inhaler aspirin 81 mg tablet,delayed 81 mg PO DAILY 08/02/22 02/20/25 release cyclobenzaprine 10 mg tablet 10 mg PO TID 08/02/22 02/20/25 fexofenadine 180 mg tablet 180 mg PO QDAY 08/02/22 02/20/25 (Allergy Relief (fexofenadine)) gabapentin 300 mg capsule 300 mg PO DIRECTED 08/02/22 02/20/25 hydrocodone 10 mg-acetaminophen 1 tab PO Q4H PRN 08/02/22 02/20/25 325 mg tablet ketoconazole 2 % topical cream 1 applic topical PRN 08/02/22 02/20/25 melatonin 5 mg capsule 5 mg PO .Bedtime 08/02/22 02/20/25 multivitamin 1 tab PO QDAY 08/02/22 02/20/25 Previous Rx's ?Medication ?Instructions ?Recorded hydrocortisone 2.5 % topical cream 1 applic topical BID PRN skin 11/08/22 irritation #454 grams epinephrine 0.3 mg/0.3 mL 0.3 mg (0.3 mL) IM .As Needed as 02/21/23 injection, auto-injector needed PRN anaphylaxis #2 ea omega-3 acid ethyl esters 1 gram 2 cap PO BID #360 caps 03/15/24 capsule (Lovaza) atorvastatin 20 mg tablet 20 mg PO QPM #90 tabs 03/16/24 diazepam 5 mg tablet 5 mg PO BID PRN anxiety #30 tabs 08/21/24 Allergies Allergy/AdvReac Type Severity Reaction Status Date / Time adhesive Allergy Rash Verified 02/20/25 18:31 oxycodone (From OxyContin) AdvReac Rash Verified 02/20/25 18:31 Sulfa (Sulfonamide AdvReac Rash Verified 02/20/25 18:31 Antibiotics) prednisone AdvReac Severe rash Uncoded 02/20/25 15:01 steroids AdvReac Difficulty Uncoded 02/20/25 15:01 Breathing Review of Systems Status of ROS: Reports: 6 or more systems reviewed and unremarkable except as noted in History and below PFSH [facility] Medical History Neck pain ?M54.2 - Cervicalgia (ICD-10) IBS (irritable bowel syndrome) ?K58.9 - Irritable bowel syndrome without diarrhea (ICD-10) Tinnitus ?H93.19 - Tinnitus, unspecified ear (ICD-10) Kidney calculus ?N20.0 - Calculus of kidney (ICD-10) Constipation by delayed colonic transit ?K59.01 - Slow transit constipation (ICD-10) Chronic bronchitis with acute exacerbation ?J20.9 - Acute bronchitis, unspecified (ICD-10) ?J42 - Unspecified chronic bronchitis (ICD-10) Chronic sinusitis ?J32.9 - Chronic sinusitis, unspecified (ICD-10) Chronic, continuous use of opioids ?F11.90 - Opioid use, unspecified, uncomplicated (ICD-10) Back pain ?M54.9 - Dorsalgia, unspecified (ICD-10) Surgical History S/P trigger finger release (11/17/15) ?Z98.890 - Other specified postprocedural states (ICD-10) Status post total left knee replacement (12/05/17) ?Z96.652 - Presence of left artificial knee joint (ICD-10) Hx of cholecystectomy ?Z90.49 - Acquired absence of other specified parts of digestive tract (ICD-10) History of thumb surgery ?Z98.890 - Other specified postprocedural states (ICD-10) History of lumbar laminectomy ?Z98.890 - Other specified postprocedural states (ICD-10) History of hysterectomy ?Z90.710 - Acquired absence of both cervix and uterus (ICD-10) Family History Brother Bleeding disorder Alcohol dependence Heart problem Sister High blood pressure Father Bladder cancer Prostate cancer Diabetes Heart problem Mother Heart problem Diabetes Sister Breast cancer Diabetes Social History Smoking Status: Unknown if ever smoked How often do you have a drink containing alcohol: never AUDIT-C Alcohol total score: 0 Non-prescribed substance use: denies use Exam Narrative: Exam Narrative: Objective patient's vital signs show elevated blood pressure afebrile Alert or x3 No facial asymmetry Neck is supple Pulse regular Abdomen bowel sounds hypoactive there is no marked rebound although she has some mild periumbilical and epigastric tenderness no palpable masses Extremities are no edema Neurologic nonfocal Good peripheral perfusion noted. Const: Vital Signs, click to edit/add: Vital Signs - 24 hr 02/20/25 17:08 02/20/25 17:48 Temperature 98.0 F Pulse Rate [Pulse Oximeter] 112 H Respiratory Rate 12 Blood Pressure [Ri ght Upper Arm] 171/100 H Pulse Oximetry 100 99 Oxygen Delivery Me thod Room Air Course Vital Signs Vital signs: Initial Vital Signs Temperature 98.0 F 02/20/25 17:08 Temperature Source Temporal Artery Scan 02/20/25 17:08 Pulse Rate 112 H 02/20/25 17:08 Respiratory Rate 12 02/20/25 17:08 Blood Pressure 171/100 H 02/20/25 17:08 Blood Pressure Mean 123 H 02/20/25 17:08 Blood Pressure Position Sitting 02/20/25 17:08 Pulse Oximetry 100 02/20/25 17:08 Oxygen Delivery Method Room Air 02/20/25 17:08 Vital Signs Temperature 98.0 F 02/20/25 17:08 Pulse Rate 112 H 02/20/25 17:08 Respiratory Rate 12 02/20/25 17:08 Blood Pressure 171/100 H 02/20/25 17:08 Pulse Oximetry 100 02/20/25 17:08 Oxygen Delivery Method Room Air 02/20/25 17:08 Temperature 98.0 F 02/20/25 17:08 Pulse Rate 112 H 02/20/25 17:08 Respiratory Rate 12 02/20/25 17:08 Blood Pressure 171/100 H 02/20/25 17:08 Pulse Oximetry 99 02/20/25 17:48 Oxygen Delivery Method Room Air 02/20/25 17:08 Medications Administered Medications: Discontinued Medications Generic Name Dose Route Start Last Admin Trade Name Yonatan PRN Reason Stop Dose Admin Diphenhydramine HCl 25 mg 02/20/25 17:20 02/20/25 18:13 Diphenhydramine 50 Mg/Ml Inj IVP 02/20/25 17:21 25 mg ONCE ONE Administration Docusate Sodium/Benzocaine 5 ml 02/20/25 18:37 02/20/25 18:53 Docusate Sodium/Benzocaine 5 Ml Enema UT 02/20/25 18:38 5 ml ONCE ONE Administration Hydromorphone HCl 0.5 mg 02/20/25 17:17 02/20/25 17:34 Hydromorphone 0.5 Mg/0.5 Ml Inj IVP 02/20/25 17:18 0.5 mg ONCE ONE Administration Sodium Chloride 500 mls @ 500 mls/hr 02/20/25 17:17 02/20/25 18:31 0.9 % Sodium Chloride 500 Ml IV 02/20/25 18:16 Infused .Q1H ONE Infusion Medical Decision Making [facility] Narrative Medical decision making narrative: 74-year-old white female with increased abdominal pain on chronic narcotics. Possible simply constipation versus bowel obstruction. I think at this point given she has moderate stool in her colon I would recommend we get a CT scan of her abdomen should of diverticulitis or other intra-abdominal pathology or have a bowel obstruction. If she has is negative for this then a Enemeez enema would be recommended and will check her labs. As for completeness will repeat her EKG and check a troponin as well as other electrolytes and labs. Patient given some IV fluid. She has had a problem with oxycodone in the past she takes hydrocodone without difficulty on a daily basis at home will give her some Dilaudid but also some Benadryl. She is here with her daughter. Addendum 6:37 p.m. the patient had a CT scan of the abdomen pelvis with contrast, by my review independently I do not see any obvious inflammatory changes or obstruction. She does have a good amount of stool in her specially right ascending colon. Due to technical difficulties when it were unable to get an over read from [facility] at this time. The CT scan will be sent when able. At this time also I would suggest the patient get an Enemeez mini enema and see if she gets results, if she does not she can try MiraLax a couple at cap fulls twice a day for the next several days until she gets loose stools. She could try and minimize her oral narcotic use. She should recheck with regular doctor in the next couple of days if not improving or return to the ED if problems or concerns. She and her daughter were comfortable plan. Also of note is her EKG by my read shows sinus tachycardia with PACs lot of artifact no obvious ST segment changes or T-wave inversion or Flattening. The patient has lab studies that show a normal white count normal hemoglobin, normal ER profile, AST and ALT are just minimally elevated her CRP interestingly is less than 0.5 her point of care troponin is normal in her point of care creatinine is normal. Discharged home after Enemeez enema as described above thanks. If her CT gets read by radiology and there was a discrepancy from simply constipation, will have to call her back with disposition planning. Lab Data Labs: Lab Results 02/20/25 02/20/25 02/20/25 Range/Units 17:17 17:40 17:49 WBC 6.45 (4.50-11.00) K/uL RBC 4.68 (4.00-5.20) m/uL Hgb 14.3 (12.0-16.0) gm/dL Hct 42.5 (33.0-51.0) % MCV 91 (80-100) fL MCH 31 (26-34) pg MCHC 34 (32-36) gm/dL RDW Coeff of Guillaume 12.5 (11.5-15.5) % Plt Count 222 (140-440) K/uL Neut % (Auto) 75.1 H (42.0-72.0) % Lymph % (Auto) 19.7 L (20-44) % [place] % (Auto) 4.2 (0.0-11.0) % Eos % (Auto) 0.5 (0.0-7.0) % Baso % (Auto) 0.5 (0.0-3.0) % Neut # (Auto) 4.80 (1.7-7.0) K/uL Lymph # (Auto) 1.30 (0.90-2.90) K/uL [place] # (Auto) 0.30 (0.00-0.90) K/UL Eos # (Auto) 0.03 (0.00-0.50) K/uL Baso # (Auto) 0.03 (0.00-0.30) K/uL Abs Immat Gran (auto) 0.00 (0.00-0.30) K/uL Imm/Tot Granulo (auto) 0.0 % Sodium 141 (135-149) mmol/L Potassium 3.9 (3.6-5.1) mmol/L Chloride 104 (96-114) mmol/L Carbon Dioxide 30 (20-32) mmol/L Anion Gap 7 (7-15) mEq/L BUN 11 (7-30) mg/dL Creatinine 0.6 (0.5-1.5) mg/dL Estimated Creat Clear 47.60 Estimated GFR 95 ml/min Glucose 102 (60-115) mg/dL Calcium 9.9 (8.4-10.6) mg/dL Total Bilirubin 1.0 (0.1-1.5) mg/dL Direct Bilirubin 0.5 (0.0-0.5) mg/dL AST 61 H (12-35) U/L ALT 40 H (4-35) U/L Alkaline Phosphatase 49 (40-150) U/L C-Reactive Protein < 0.5 L (0.5-1.0) mg/dL Total Protein 7.9 (6.0-8.3) g/dL Albumin 4.8 (3.3-5.0) g/dL Amylase 63 (18-89) U/L POC Creatinine 0.7 (0.6-1.3) mg/dl POC Troponin I 0.01 (0.01-0.04) ng/ml Discharge Plan Discharge Clinical Impression: Abdominal pain, Constipation by delayed colonic transit Patient Disposition: Home w/ Parent or Adult Condition: Improved Additional Instructions: Recommend she continue home medications with the exception of if she can minimize her use of narcotic for a couple of days that be helpful, I think she could continue to use it but maybe use 1 dose last the day, would recommend MiraLax 1 capful twice a day in water until you have looser stool for the next couple of days. Recommend recheck with regular doctor next 3-4 days, return to the ED sooner problems concerns worsening. Activity Level: Light activity Discharge Diet: High Fiber Prescriptions: No Action melatonin 5 mg capsule 5 mg PO .Bedtime gabapentin 300 mg capsule 300 mg PO DIRECTED Rx Instructions: 300mg qam/ 600mg afternoon and 600mg qpm aspirin 81 mg tablet,delayed release (DR/EC) 81 mg PO DAILY hydrocodone-acetaminophen 10-325 mg tablet 1 tab PO Q4H PRN cyclobenzaprine 10 mg tablet 10 mg PO TID multivitamin Tablet 1 tab PO QDAY fexofenadine [Allergy Relief (fexofenadine)] 180 mg tablet 180 mg PO QDAY albuterol sulfate 90 mcg/actuation HFA aerosol inhaler 2 inhalation PRN ketoconazole 2 % cream 1 applic topical PRN omega-3 acid ethyl esters [Lovaza] 1 gram capsule 2 cap PO BID Qty: 360 3RF epinephrine 0.3 mg/0.3 mL auto-injector 0.3 mg IM .As Needed as needed PRN (Reason: anaphylaxis) Qty: 2 0RF diazepam 5 mg tablet 5 mg PO BID PRN (Reason: anxiety) Qty: 30 2RF hydrocortisone 2.5 % cream 1 applic topical BID PRN (Reason: skin irritation) Qty: 454 1RF atorvastatin 20 mg tablet 20 mg PO QPM Qty: 90 3RF Follow Up/Referrals: Rene Villanueva MD [Primary Care Provider, Family Practice] Stand Alone Forms: [facility] Info Instructions
[2025-02-20] MEDS: 0.9 % SODIUM CHLORIDE 500 ML 500 ML IV (17:33)
[2025-02-20] MEDS: HYDROmorphone 0.5 mg/0.5 ml inj IVP (17:34)
[2025-02-20 17:48] VITALS: O2SAT 99
[2025-02-20 17:50] LABS: Creatinine, Point-of-Care* 0.7 mg/dl (0.6-1.3)
[2025-02-20 17:55] LABS: Basophils Absolute Auto 0.03 K/uL (0.00-0.30); Basophils Percent Auto 0.5 % (0.0-3.0); Eosinophils Absolute Auto 0.03 K/uL (0.00-0.50); Eosinophils Percent Auto 0.5 % (0.0-7.0); Hematocrit 42.5 % (33.0-51.0); Hemoglobin* 14.3 gm/dL (12.0-16.0); Lymphocytes Percent Auto 19.7 % (20-44); Mean Corpuscular HGB Conc 34 gm/dL (32-36); Mean Corpuscular Hemoglobin 31 pg (26-34); Mean Corpuscular Volume 91 fL (80-100); Monocytes Percent Auto 4.2 % (0.0-11.0); Neutrophils Percent Auto 75.1 % (42.0-72.0); Platelet Count* 222 K/uL (140-440); RDW Coefficient of Variation % 12.5 % (11.5-15.5); Red Blood Count 4.68 m/uL (4.00-5.20); White Blood Count* 6.45 K/uL (4.50-11.00)
[2025-02-20 17:59] LABS: Slide Review Reflex No
[2025-02-20 18:13] LABS: Troponin, Point-of-Care* 0.01 ng/ml (0.01-0.04)
[2025-02-20] MEDS: diphenhydrAMINE 50 MG/ML inj 25 MG IVP (18:13)
[2025-02-20 18:18] LABS: Albumin* 4.8 g/dL (3.3-5.0); Chloride* 104 mmol/L (96-114)
[2025-02-20 18:19] LABS: Potassium* 3.9 mmol/L (3.6-5.1); Sodium* 141 mmol/L (135-149)
[2025-02-20 18:21] LABS: Amylase* 63 U/L (18-89); Blood Urea Nitrogen* 11 mg/dL (7-30); Creatinine* 0.6 mg/dL (0.5-1.5); Estimated Glomerular Filt Rate 95 ml/min
[2025-02-20 18:22] LABS: Alanine Aminotransferase* 40 U/L (4-35); Alkaline Phosphatase* 49 U/L (40-150); Anion Gap 7 mEq/L (7-15); Aspartate Amino Transferase* 61 U/L (12-35); Bilirubin Direct* 0.5 mg/dL (0.0-0.5); Calcium* 9.9 mg/dL (8.4-10.6); Carbon Dioxide* 30 mmol/L (20-32); Glucose* 102 mg/dL (60-115); Total Protein* 7.9 g/dL (6.0-8.3)
[2025-02-20 18:31] LABS: C Reactive Protein* < 0.5 mg/dL (0.5-1.0)
[2025-02-20] MEDS: DOCUSATE SODIUM/BENZOCAINE 5 ML ENEMA PR (18:53)
== END 2025-02-20 19:12 | disposition home or self-care (01) ==
PROVIDERS: Emergency Provider Family Medicine; PCP Family Medicine
DX: R10.9 Unspecified abdominal pain (principal); K59.01 Slow transit constipation; F11.10 Opioid abuse, uncomplicated; R00.0 Tachycardia, unspecified; R06.9 Unspecified abnormalities of breathing
CPT/HCPCS: 36415; 74177; 80048; 80076; 82150; 82565; 84484; 85025; 86140; 93005; 94761; 96374; 96375; 99285; A9270; J1171; J1200; J7030; Q9967

== ENCOUNTER 2025-03-18 14:22 | Outpatient (CLI) | payer MEDICARE, SELFPAY | END 2025-03-18 14:23 | disposition home or self-care (01) | PROVIDERS: PCP Family Medicine; Visit Provider Family Medicine | DX: E78.5 Hyperlipidemia, unspecified (principal) | CPT/HCPCS: 80061; 80076 ==